=== PATIENT | female | born 1995 | race Caucasian/White ===

== ENCOUNTER → 2019-12-10 15:47 | Outpatient (CLI) | payer OTHER, SELFPAY ==
[2017-03-16 05:47] VITALS: BMI 27.3
[2019-12-10 17:17] LABS: Absolute Lymphocyte Count 2.25 X10^3/uL (0.83-4.51); Absolute Neutrophil Count 5.4 X10^3/uL (2.0-7.7); Basophil# 0.05 X10^3/uL; Basophil% 0.6 % (0-1); Eosinophil# 0.14 X10^3/uL; Eosinophils% 1.7 % (0-5); Hematocrit 39.3 % (37-47); Hemoglobin 13.3 g/dL (12.0-15.0); Lymphocyte # 2.25 X10^3/ul (4.0); Lymphocyte % 26.8 % (19-41); Mean Corp Hgb Conc 33.8 g/dL (32-36); Mean Corpuscular Hgb 31.7 pg (27.0-32.0); Mean Corpuscular Volume 93.8 fL (81-99); Mean Platelet Vol. 11.8 fl (6.2-12.0); Monocyte# 0.53 X10^3/uL; Monocyte% 6.3 % (0-10); NRBC Flagged by Analyzer 0 % (0-5); Neutrophil # 5.42 X10^3/uL (2.7-7.7); Neutrophil % 64.4 % (47-70); Platelet Count 189 K/mm3 (150-450); RBC Distribution Width CV 12.1 % (11.6-14.6); RBC Distribution Width SD 41.4 fl (35.1-43.9); Red Blood Count 4.19 M/mm3 (4.2-5.4); White Blood Count 8.4 K/mm3 (4.4-11.0)
[2019-12-10 17:38] LABS: Color, Urine Yellow (Yellow); Glucose, Dipstick Normal (Normal); Ketone-Dipstick Negative (Negative); Leukocyte Esterase-Dipstick 500 /ul (Negative); Nitrite-Dipstick Negative (Negative); Occult Blood-Urine Negative /ul (Negative); Protein-Dipstick Negative (Negative); Specific Gravity, Urine 1.025 (1.002-1.030); Thyroid Stim Hormone (TSH) 0.63 uIU/mL (0.358-3.74); Urine Bilirubin Dipstick Negative (Negative); Urine Clarity Clear (Clear); Urine Urobilinogen Normal (Normal)
[2019-12-10 18:13] LABS: Amphetamine Urine VISTA NEGATIVE (<1000 ng/mL); Barbiturate Urine VISTA NEGATIVE (< 200 ng/mL); Benzodiazepine Urine VISTA NEGATIVE (< 200 ng/mL); Cocaine Urine VISTA NEGATIVE (< 300 ng/mL); Ecstacy Urine VISTA NEGATIVE (< 500 ng/mL); Methadone Urine VISTA NEGATIVE (< 300 ng/mL); PCP Urine VISTA NEGATIVE (< 25 ng/mL); THC Urine VISTA NEGATIVE (< 50 ng/mL); Vista UDS pH Range 5
[2019-12-10 20:29] LABS: Chlamydia Trachomatis by PCR Negative (Negative); Neisserai gonorrhoeae by PCR Negative (Negative); Probe Check PASS; Sample Adequacy Control PASS; Specimen Processing Control PASS
[2019-12-11 10:23] LABS: HIV - WCH Non-Reactive (Nonreactive); Hepatitis B Surface Antigen Non-Reactive (Nonreactive); Hepatitis C Antibody Non-Reactive (Nonreactive); Rubella IgG 42.6 IU/mL
[2019-12-17 03:25] LABS: Prenatal RPR NONREACTIVE (NONREACTIVE)
== END ==
PROVIDERS: PCP Family Medicine; Visit Provider Obstetrics & Gynecology
DX: Z34.82 Encounter for supervision of other normal pregnancy, second trimester (principal); Z11.3 Encounter for screening for infections with a predominantly sexual mode of transmission
CPT/HCPCS: 36415; 80307; 81002; 84443; 85025; 86703; 86762; 86803; 87340; 87491; 87591

== ENCOUNTER → 2020-05-23 | Outpatient (CLI) | payer OTHER, SELFPAY ==
[2020-05-23 10:27] VITALS: BMI 29.0
== END | disposition home or self-care (01) ==
LOC: LABSPEC 12:55
PROVIDERS: PCP Family Medicine; Referring Provider Obstetrics & Gynecology; Visit Provider Obstetrics & Gynecology
DX: Z34.90 Encounter for supervision of normal pregnancy, unspecified, unspecified trimester (principal)
CPT/HCPCS: 87081

== ENCOUNTER 2020-06-17 02:25 | Inpatient (IN) | payer SELFPAY ==
[2017-03-16 05:47] VITALS: BMI 27.3
[2020-06-13 11:36] VITALS: BMI 29.4
[2020-06-16 23:43] VITALS: BMI 29.2
[2020-06-16 23:56] VITALS: BP 127/73; PULSE 92; TEMP 36.6; O2SAT 97
[2020-06-17] VITALS (53 sets, daily range): BP systolic 87–134; BP diastolic 52–84; PULSE 75–105; RESP 16–18; TEMP 36.5–36.9; O2SAT 97–99
[2020-06-17] MEDS: Lactated Ringers 1,000 ML 50 ML IV (03:00)
[2020-06-17 03:17] LABS: Absolute Lymphocyte Count 2.35 X10^3/uL (0.83-4.51); Absolute Neutrophil Count 8.9 X10^3/uL (2.0-7.7); Basophil# 0.04 X10^3/uL; Basophil% 0.3 % (0-1); Eosinophil# 0.26 X10^3/uL; Eosinophils% 2.1 % (0-5); Hematocrit 36.3 % (37-47); Hemoglobin 12.5 g/dL (12.0-15.0); Lymphocyte # 2.35 X10^3/ul (4.0); Mean Corp Hgb Conc 34.4 g/dL (32-36); Mean Corpuscular Hgb 32.1 pg (27.0-32.0); Mean Corpuscular Volume 93.1 fL (81-99); Mean Platelet Vol. 11.4 fl (6.2-12.0); Monocyte# 0.74 X10^3/uL; NRBC Flagged by Analyzer 0 % (0-5); Neutrophil # 8.89 X10^3/uL (2.7-7.7); Neutrophil % 72.1 % (47-70); Platelet Count 189 K/mm3 (150-450); RBC Distribution Width CV 12.4 % (11.6-14.6); RBC Distribution Width SD 42.5 fl (35.1-43.9); White Blood Count 12.3 K/mm3 (4.4-11.0)
--- NOTE | 2020-06-17 03:45 | HP.PCM_ITS ---
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 Anatomy scan normal. Declined genetic testing. (4) Status: Acute Qualifiers: Comment: RAQUEL at 31w. Declined genetic testing with prior OB. Anatomy normal. (5) Rh negative status during Status: Acute Qualifiers: Comment: Rhogam given 03/29. Repeat after delivery. 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 Wil[facility] Spouse Yousif 28 wk GCT and CBC WNL, scanned in History and Physical Date of Admission: 06/17/20 Intake Vital Signs 06/13/20 Height 5 ft 3 in 06/13/20 Weight: 166 lb 06/13/20 BMI 29.4 06/13/20 BP 120/88 H 05/10/20 BMI 28.8 Intake Visit Reasons: 40 WK OB Chief Complaint: est ob Rack Carrier Required: No Is patient in pain?: No Allergies No Known Allergies Allergy (Verified 06/13/20 11:36) Medications docosahexaenoic acid 200 mg capsule mg PO 04/13/20 [History Confirmed 06/13/20] Last Menstral Period: 09/07/19 Zika: Zika virus screening: Negative : No PFSH PFS Social History (Updated 06/13/20 @ 11:[address] Debbi Patel MD) Smoking Status: Never smoker alcohol intake: never substance use type: does not use caffeine: No what type of physical activity do you participate in: none do you feel safe at home: Yes additional social history: - Yousif Pregancy History 2 Elective abortions Hx Para 1 Spontaneous abortions Hx # Term Pregnancies Ectopic pregnancies Hx # Pregnancies Multiple births # of living children Past Pregnancies Del. Date Name GA/Weeks Outcome Route Bth Weight Infant Gen Labor Lgth Anesthesia Del Locatn Provider FOB 03/16/17 Willy 40 live - full term 7lbs 4oz Male epidural [facility] Dr. Yoana Dodd Delivery Date: 03/16/17 No issues during or delivery Kristen Zhong HPI 40 WK OB: Details: JASWINDER WARE is a 25 year old at 40 weeks 4 days presents in active labor with regular contractions denies any vaginal bleeding or loss of fluid admits good movement OB Visit LAURA Calculator Estimated Delivery Date Method Current WG Current Estimate 06/13/20 Manual 40w 0d Expected Delivery Route/Plan deliver at 41 Labor Preferences- CB/BF classes: declines labor support person: Yousif labor intervention preferences: open to standard pain management options preferred: epidural cut cord/dad catch: cord : yes PP control planned: [] discussed possible routes of delivery and associated risks: discussed possible delivery modalities and possible indications for each including R/B/A of , VAVD, FAVD, and CS. questions answered. special requests: denies Specific Issue/Plans flu vaccine: declines tdap vaccine: declines rhogam: 03/29 LARC form signed: 04/13/2020Fetal movement and labor precautions reviewed. movement and labor precautions reviewed. Problem list reviewed and updated with the most current plan of care details and appropriate orders placed. Relevant counseling for the gestational age provided. 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 no LOF, VB, DFM, ctx. Oriented to practice. Discussed labor preferences. LARC form signed. 04/26/20 33w 1d 159 lb 8 oz 118/72 Negative Negative 168 31 Transverse MH-No Vb, LOF. Confirm transverse lie with US. No CTX. Good FM 05/10/20 35w 1d 163 lb 136/80 Negative Negative 157 35 Cephalic GP - no ctx, LOF, VB, DFM. Cephalic on ultrasound. Discussed routes of delivery - believes had vacuum last . 05/23/20 37w 0d 164 lb 144/88 128/80 Negative Negative 150 37 Cephalic 1 SM- no vb lof good fm no regular ctx 06/01/20 38w 2d 165 lb 6 oz 130/88 Negative Negative 155 38 Cephalic 1 50 -2 GP - no LOF, VB, DFM, ctx . Discussed COVID testing. 06/07/20 39w 1d 165 lb 2 oz 130/80 Negative Negative 155 39 Cephalic 2 50 -2 GP - no LOF, VB, DFM, ctx . Membranes swept today. Discussed IOL at 41 weeks if no labor before then. 06/13/20 40w 0d 166 lb 120/88 150 38 Cephalic 2 40 -2 SM- no vb lof good fm no reuglar ctx IOL 41 weeks bedside MARIBELL WNL ACOG Second Trimester Second Trimester: Signs and Symptoms of Labor, Selecting a care provider, Reproductive Life Planning, Care Planning, Depression/Anxiety and Intimate Partner Violence; discussed Tobacco Cessation Diagnostics Diagnostics Diagnostics Blood Type O NEGATIVE 12/10/19 Antibody Screen POSITIVE H 03/16/17 HIV 1&2 Antibody Non-Reactive (Nonreactive) 12/10/19 Group B Strep DNA Negative (Negative) 02/12/17 Rubella IgG Antibody 42.6 IU/mL 12/10/19 Hgb 13.3 g/dL (12.0-15.0) 12/10/19 Hct 39.3 % (37-47) 12/10/19 RPR NONREACTIVE (NONREACTIVE) 12/10/19 Details: HIV: Urine Culture: Sequential Screen: NIPT Screen: ROS Const Reports system reviewed and no additional complaints, except as docu Card Reports system reviewed and no additional complaints, except as docu Resp Reports system reviewed and no additional complaints, except as docu GI Reports system reviewed and no additional complaints, except as docu, Reports nausea Reports system reviewed and no additional complaints, except as docu Musc Reports system reviewed and no additional complaints, except as docu Exam Const General: cooperative, healthy appearing, comfortable, anxious [facility] Head: normal to inspection Nose: external nose normal Face and sinus: normal facial exam Neck Neck: normal visual inspection, full ROM, no lymphadenopathy Thyroid: thyroid normal Chest Chest palpation & inspection: normal inspection of the chest Resp Effort & Inspection: normal respiratory effort GI Inspection: normal to inspection Palpation: soft, other (gravid uterus) Other: vertex and appropriate size for gestational age Other: Cervical Exam: 3-4 Extrem General: pedal edema Assessment & Plan Problems 1. Z34.90 RAQUEL at 31w. Declined genetic testing with prior OB. Anatomy normal. 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 Anatomy scan normal. Declined genetic testing. 3. 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 Spouse Yousif 28 wk GCT and CBC WNL, scanned in 4. 39 weeks gestation of Z3A.39 electronic covid test ordered 06/07/20 5. Rh negative status during O26.899; Z67.91 Rhogam given 03/29. Repeat after delivery. 25-year-old at 40 weeks 4 days presents in active labor Patient presents IAL, plan expectant management for , [pitocin/AROM if need ed]. Pain management: [plans epidural]. GBS negative. Management of any complications: Rh- RhoGam as needed postdelivery I have reviewed the [facility] and made any clinically relevant updates. 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
[2020-06-17] MEDS: Lactated Ringers 500 ML 999 ML IV ×2 (05:10→06:56)
[2020-06-17] MEDS: fentaNYL-bupivacaine (epidural) 100 ML BAG EPIDURAL ×2 (06:13→10:22)
[2020-06-17] MEDS: Oxytocin 30 units/NS 500 ml 30 UNITS/500 ML IV.SOLN IV (06:25)
[2020-06-17] MEDS: Lactated Ringers 1,000 ML 200 ML IV (10:21)
[2020-06-17] MEDS: Oxytocin 30 units/NS 500 ml 30 UNITS/500 ML IV.SOLN 334 UNITS IV (12:23)
--- NOTE | 2020-06-17 22:13 | PCM.OPRPT ---
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 Anatomy scan normal. Declined genetic testing. (4) Status: Acute Qualifiers: Comment: RAQUEL at 31w. Declined genetic testing with prior OB. Anatomy normal. (5) Rh negative status during Status: Acute Qualifiers: Comment: Rhogam given 03/29. Repeat after delivery. 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ly Spouse Yousif 28 wk GCT and CBC WNL, scanned in Vaginal Delivery Maternal Presentation: Active Labor ial 40w4d Amniotic Membrane Rupture Type: Artificial Amniotic Fluid Description: Clear Final LAURA: 06/13/20 Gestational age: 40 Weeks and 4 Days Date of Procedure: 06/17/20 Pre-Operative Diagnosis: ial Post-Operative Diagnosis: same Surgery/ Procedure Performed: Spontaneous Vaginal Delivery Type of Anesthesia: Epidural Description of Procedure: Patient began pushing and delivered the head in the RAFAELA presentation. The head was delivered atraumatically. The anterior and posterior shoulders delivered without complication followed by the rest of the infant and the was placed on the maternal abdomen. Delayed cord clamping was employed for approximately 60 seconds. Cord was clamped and cut and gentle traction was applied to the cord and the placenta delivered spontaneously immediately following it was noted to be intact with three-vessel cord. The perineum and vagina were inspected and noted to have a small first-degree perineal laceration that was repaired in the usual fashion with 3-0 Vicryl Rapide. EBL was 400 cc. Patient and tolerated delivery well. Presentation: RAFAELA Placental Delivery Description: Spontaneous Placenta Disposition: [facility] Cord Vessel Description: 3 Vessels Estimated Blood Loss: 400 Episiotomy Description: None Laceration: None Medications given after delivery: IV Pitocin Complications: None Multi Select Codes - Urinary/Genital Urinary/Genital CPT Codes: 58888 Vaginal Delivery [facility]
--- NOTE | 2020-06-17 22:15 | DCINST_ITS ---
Discharge Diet: No Restrictions Discharge Activity: Return to Normal Activity, May not drive while taking narcotic pain medications., May Shower May resume sexual activity in: 4-6 weeks Call your doctor if your incision/area has: Continuous Slow Oozing, Sudden Increased Bleeding, Increased Pain/ Swelling, Increased Redness, Foul Smelling Discharge Additional Instructions: If you experience any of the following, contact your healthcare provider. * Bleeding that soaks a pad every hour for 2 hours * Fever 100.4 or higher * Unrelieved incision or abdominal pain * Swelling, redness, discharge or bleeding from your incision or episiotomy site * Your incision begins to separate * Problems urinating (including inability to urinate or burning while urinating). * Visual changes * Severe headache * Flu-like symptoms * Pain or redness in one of both of your breasts * Pain, warmth, tenderness or swelling in your legs, especially the calf area * Frequent nausea and vomiting * Symptoms of depression or anxiety If you experience any of the following, call 911 or go to the nearest Emergency Room. * Chest pain * Problems breathing * Seizure activity * Partial or complete paralysis of a body part, slurred speech, weakness or drooping of the face, or a sudden inability to walk or hold your balance Allergies/Adverse Reactions: Allergies No Known Allergies Allergy (Verified 06/16/20 23:49) Medications to take at Discharge Cholecalciferol (Vitamin D3) [Vitamin D3] 5,000 mg PO DAILY 06/16/20 Pnv No.95/Ferrous Fum/Folic AC [ Caplet] 1 tab PO DAILY 06/16/20 Naproxen [Naprosyn] 250 - 500 mg PO Q8H PRN PRN #30 tab 06/17/20 The following prescriptions were given: Naproxen [Naprosyn] 250 - 500 mg PO Q8H PRN PRN #30 tab PRN Reason: MILD PAIN Transmission Status: Pending to [facility] Please Follow Up With: Debbi Patel MD - [phone] When: Call to make an appointment with your doctor in 6 weeks. If you had elevated Blood pressure or 4th degree laceration you will need to be seen in 2 weeks. Primary Care Physician: Faby Griggs DO [Primary Care Provider] - Test Results: Test results from this visit will be discussed in further detail at your follow- up appointment, if applicable.
--- NOTE | 2020-06-17 22:15 | PCM.DCVAG ---
Discharge Diet: No Restrictions Discharge Activity: Return to Normal Activity, May not drive while taking narcotic pain medications., May Shower May resume sexual activity in: 4-6 weeks Call your doctor if your incision/area has: Continuous Slow Oozing, Sudden Increased Bleeding, Increased Pain/ Swelling, Increased Redness, Foul Smelling Discharge Additional Instructions: If you experience any of the following, contact your healthcare provider. Bleeding that soaks a pad every hour for 2 hours Fever 100.4 or higher Unrelieved incision or abdominal pain Swelling, redness, discharge or bleeding from your incision or episiotomy site Your incision begins to separate Problems urinating (including inability to urinate or burning while urinating). Visual changes Severe headache Flu-like symptoms Pain or redness in one of both of your breasts Pain, warmth, tenderness or swelling in your legs, especially the calf area Frequent nausea and vomiting Symptoms of depression or anxiety If you experience any of the following, call 911 or go to the nearest Emergency Room. Chest pain Problems breathing Seizure activity Partial or complete paralysis of a body part, slurred speech, weakness or drooping of the face, or a sudden inability to walk or hold your balance Allergies/Adverse Reactions: Allergies No Known Allergies Allergy (Verified 06/16/20 23:49) Medications to take at Discharge Cholecalciferol (Vitamin D3) [Vitamin D3] 5,000 mg PO DAILY 06/16/20 Pnv No.95/Ferrous Fum/Folic AC [ Caplet] 1 tab PO DAILY 06/16/20 Naproxen [Naprosyn] 250 - 500 mg PO Q8H PRN PRN #30 tab 06/17/20 The following prescriptions were given: Naproxen [Naprosyn] 250 - 500 mg PO Q8H PRN PRN #30 tab PRN Reason: MILD PAIN Transmission Status: Pending to [facility] Please Follow Up With: Debbi Patel MD - [phone] When: Call to make an appointment with your doctor in 6 weeks. If you had elevated Blood pressure or 4th degree laceration you will need to be seen in 2 weeks. Primary Care Physician: Faby Griggs DO [Primary Care Provider] - Test Results: Test results from this visit will be discussed in further detail at your follow-up appointment, if applicable.
[2020-06-17] MEDS: Naproxen 250 MG Tablet 500 MG PO (23:26)
[2020-06-18 03:51] VITALS: TEMP 36.5
[2020-06-18 03:52] VITALS: BP 118/68; PULSE 90; RESP 18; TEMP 36.5
[2020-06-18 08:21] VITALS: BP 119/82; PULSE 91
[2020-06-18 08:22] VITALS: TEMP 36.5
[2020-06-18 08:25] VITALS: BP 119/82; PULSE 91; RESP 14; TEMP 36.6
--- NOTE | 2020-06-18 08:50 | PCM.PN.OB ---
Patient Problems: Active and Suspected Problems (Last Reviewed 06/13/20 @ 11:36 by Danica Hutchins) Active labor at term (Acute) 39 weeks gestation of (Acute) electronic covid test ordered 06/07/20 Rh negative status during (Acute) Rhogam given 03/29. Repeat after delivery. 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 Anatomy scan normal. Declined genetic testing. (Acute) RAQUEL at 31w. Declined genetic testing with prior OB. Anatomy normal. Subjective: Patient doing well without complaints. Tolerating PO. Ambulating and voiding without difficulty. feeding well. Denies chest pain, shortness of breath, calf pain/swelling, fevers, chills, lightheadedness. - Physical Exam Vitals/I&O's: Vital Signs Temp Pulse Resp BP Pulse Ox 98 F 91 14 119/82 H 97 06/18/20 08:25 06/18/20 08:25 06/18/20 08:25 06/18/20 08:25 06/17/20 23:20 Oxygen Delivery Method Room Air Weight: 165 lb 3.2 oz Body Mass Index (BMI) 29.2 Intake and Output for Last 24 Hours 06/16/20 06/17/20 06/18/20 23:59 23:59 23:59 Intake Total 3099.50 / 3099.50 Output Total 1450 / 1450 Balance 1649.50 / 1649.50 General: Alert, Oriented x3 Microbiology Past 72 Hours 06/17/20 03:00 Mucosa - Nose SARS-CoV-2 Antigen (Rapid) - Final Current Medications Acetaminophen (Acetaminophen 500 Mg Tablet) 1,000 mg PO Q8H PRN PRN PRN Reason: Pain Score 1-3 Bisacodyl (Bisacodyl 10 Mg Suppository) 10 mg RECTAL UD PRN PRN Reason: If no BM Dibucaine (Dibucaine 30 Gm Tube) 1 applic TOPICAL TID PRN PRN; Protocol PRN Reason: Discomfort Hydrocortisone (Hydrocortisone 2.5% Crm) 1 applic TOPICAL TID PRN PRN; Protocol PRN Reason: Discomfort Methylergonovine Maleate (Methylergonovine 0.2 Mg/Ml Ampul) 0.2 mg IM X1 PRN PRN Reason: Excess bleeding/uterine atony Naproxen (Naproxen 250 Mg Tablet) 500 mg PO Q8H PRN PRN PRN Reason: Pain Score 1-3 Last Admin: 06/17/20 23:26 Dose: 500 mg Documented by: Ondansetron HCl (Ondansetron 4 Mg/2 Ml Vial) 4 mg IV Q4H PRN PRN PRN Reason: Nausea Oxycodone HCl (Oxycodone 5 Mg Tablet) 5 - 10 mg PO Q4H PRN PRN PRN Reason: Pain Score 4-10 Senna/Docusate Sodium (Senna/Docusate Sodium 1 Tablet) 1 - 2 tablet PO DAILY PRN PRN PRN Reason: Constipation Simethicone (Simethicone 80 Mg Tablet) 80 mg PO PCHS PRN PRN Reason: Indigestion/Stomach pain Sodium Chloride (0.9% Saline Lock 10 Ml Syringe) 5 - 15 ml IV UD PRN PRN Reason: SALINE FLUSH Medical Necessity - Tobacco Use Smoking Status: Never smoker Assessment/Plan All Active Problems (Last Reviewed 06/13/20 @ 11:36 by Danica Hutchins) Active labor at term (Acute) 39 weeks gestation of (Acute) Rh negative status during (Acute) Supervision of normal , antepartum (Acute) Dandy Walker malformation (Acute) (Acute) s/p PPD # 1 1. routine post delivery care 2. breast feeding- support given 3. rh negative- rhogam PRN 4. rubella immune
[2020-06-18 12:00] VITALS: BP 122/70; PULSE 215; PULSE 83; PULSE 84; RESP 16; TEMP 36.7; O2SAT 81; O2SAT 99
== END 2020-06-18 15:50 | disposition home or self-care (01) | DRG 807 ==
LOC: WPOUT 02:32 → WP 02:32
PROVIDERS: Admitting Provider Obstetrics & Gynecology; PCP Family Medicine; Visit Provider Obstetrics & Gynecology
DX: O70.0 First degree perineal laceration during delivery (principal); Z37.0 Single live birth; Z3A.40 40 weeks gestation of pregnancy; Z67.91 Unspecified blood type, Rh negative; Z28.21 Immunization not carried out because of patient refusal
CPT/HCPCS: 59025; 59050; 85025; 86850; 86900; 86901; 87426; 99218; J7120; G0378

== ENCOUNTER → 2020-08-01 | Outpatient (CLI) | payer OTHER, SELFPAY ==
[2020-08-04 13:06] LABS: HPV Reflexed? NOT INDICATED
== END | disposition home or self-care (01) ==
LOC: LABSPEC 16:33
PROVIDERS: PCP Family Medicine; Referring Provider Obstetrics & Gynecology; Visit Provider Obstetrics & Gynecology
DX: Z12.4 Encounter for screening for malignant neoplasm of cervix (principal)
CPT/HCPCS: 88175; G0145

== ENCOUNTER → 2024-07-30 | Outpatient (CLI) | payer OTHER, SELFPAY ==
[2024-07-30 10:52] LABS: Absolute Lymphocyte Count 1.91 X10^3/uL (0.83-4.51); Absolute Neutrophil Count 6.4 X10^3/uL (2.0-7.7); Basophil# 0.04 X10^3/uL; Basophil% 0.4 % (0-1); Eosinophil# 0.09 X10^3/uL; Hematocrit 38.9 % (37-47); Hemoglobin 13.4 g/dL (12.0-15.0); Lymphocyte # 1.91 X10^3/ul (0.83-4.51); Lymphocyte % 21.3 % (19-41); Mean Corp Hgb Conc 34.4 g/dL (32-36); Mean Corpuscular Hgb 31.8 pg (27.0-32.0); Mean Corpuscular Volume 92.2 fL (81-99); Mean Platelet Vol. 11.7 fl (6.2-12.0); Monocyte# 0.45 X10^3/uL; NRBC Flagged by Analyzer 0 % (0-5); Neutrophil # 6.44 X10^3/uL (2.7-7.7); Neutrophil % 72.1 % (47-70); Platelet Count 199 K/mm3 (150-450); RBC Distribution Width SD 40.5 fl (35.1-43.9); Red Blood Count 4.22 M/mm3 (4.2-5.4)
[2024-07-30 11:43] LABS: HIV Nonreactive (Nonreactive); Hepatitis B Surface Antigen Nonreactive (Nonreactive); Hepatitis C Antibody Nonreactive (Nonreactive); Syphilis Antibodies Nonreactive (Nonreactive)
[2024-08-01 06:08] LABS: Chlamydia By Nucleic Acid AMP Negative (Negative); Gonococcus By Nucleic Acid AMP Negative (Negative)
[2024-08-04 12:45] LABS: HPV Reflexed? NOT INDICATED
== END | disposition home or self-care (01) ==
LOC: BWCLAB 09:27
PROVIDERS: PCP Family Medicine; Referring Provider Advanced Practice Midwife; Visit Provider Advanced Practice Midwife
DX: O09.90 Supervision of high risk pregnancy, unspecified, unspecified trimester (principal); Z3A.00 Weeks of gestation of pregnancy not specified; Z12.4 Encounter for screening for malignant neoplasm of cervix
CPT/HCPCS: 36415; 85025; 86703; 86780; 86803; 86850; 86900; 86901; 87086; 87088; 87340; 87491; 87591; 88175; G0145

== ENCOUNTER → 2024-10-12 | Outpatient (CLI) | payer OTHER, SELFPAY ==
--- NOTE | 2024-10-12 15:12 | US_ITS ---
PROCEDURE: OB ANATOMY W/ TRANSVAGINAL 10/12/2024 REASON FOR EXAM: ANATOMY/CERVICAL LENGTH TECHNIQUE: High resolution obstetric ultrasound performed using a 2D transducer. Standard views obtained, including biometry, anatomy survey, and Doppler studies. COMPARISON: None FINDINGS LMP: May 24, 2025 Number: 1 Position: Transverse left Placental Position: Anterior and not low-lying Placental Abnormalities: None DIMENSIONS: Biparietal Diameter: 4.6 cm: 19 weeks and 6 days: 36 percentile/ Head Circumference: 17.5 cm: 20 weeks and 0 days: 34 percentile/ Abdominal Circumference: 14.9 cm: 20 weeks and 1 day: 44th percentile/ Femur Length: 3.1 cm: 19 weeks and 3 days: 20 percentile/ ESTIMATED WEIGHT: 318 g plus/-48 g ESTIMATED WEIGHT PERCENTILE (24+ weeks): 30 ESTIMATED GESTATIONAL AGE: Baseline: 20 weeks and 1 day By Ultrasound: 20 weeks and 0 days ESTIMATED DATE OF DELIVERY: Baseline: February 28, 2025 By Ultrasound: March 01, 2025 BIOPHYSICAL ASSESSMENT: Amniotic Fluid Volume: 5.3 Amniotic Fluid Index within normal limits Cardiac Motion: 150 beats per minute (average) Trunk and Limb Motion: Present. MATERNAL ANATOMY: Adnexa: Neither maternal ovary is successfully identified. Cervical Length (if measured): 4.8 cm ANATOMY: Spine: Unremarkable Cranium: Unremarkable Cerebellum: Unremarkable Cisterna Magna: Unremarkable Cavum Septum Pellucidi: Unremarkable Lateral Ventricles: Unremarkable Choroid Plexus: Unremarkable Midline Falx: Unremarkable Nuchal Fold: Unremarkable Upper Lip: Unremarkable Heart: Unremarkable Ventricular Outflow Tracts: Unremarkable Stomach: Unremarkable Kidneys: Bladder: Unremarkable Umbilical Cord: Unremarkable Extremities: Unremarkable US/OB Anatomy w/ Transvaginal IMPRESSION: Single live intrauterine gestation with a mean gestational age of 20 weeks. Reading Location: [facility]
== END | disposition home or self-care (01) ==
LOC: US 15:11
PROVIDERS: PCP Family Medicine; Referring Provider Obstetrics & Gynecology; Visit Provider Obstetrics & Gynecology
DX: O09.90 Supervision of high risk pregnancy, unspecified, unspecified trimester (principal); Z3A.00 Weeks of gestation of pregnancy not specified
CPT/HCPCS: 76805; 76817

== ENCOUNTER → 2024-12-08 | Outpatient (CLI) | payer OTHER, SELFPAY ==
[2024-12-08 16:40] LABS: Hematocrit 32.4 % (37-47); Hemoglobin 10.8 g/dL (12.0-15.0); Immature Granulocytes Count 0.050 X10^3/uL (0.0-0.0); Mean Corp Hgb Conc 33.3 g/dL (32-36); Mean Corpuscular Volume 95.3 fL (81-99); Mean Platelet Vol. 10.9 fl (6.2-12.0); NRBC Flagged by Analyzer 0 % (0-5); Platelet Count 185 K/mm3 (150-450); RBC Distribution Width CV 12.7 % (11.6-14.6); RBC Distribution Width SD 43.3 fl (35.1-43.9); Red Blood Count 3.40 M/mm3 (4.2-5.4); White Blood Count 8.0 K/mm3 (4.4-11.0)
[2024-12-08 17:48] LABS: Glucose Challenge Gest 1H 50g 108 mg/dL (70-140); HIV Nonreactive (Nonreactive); Syphilis Antibodies Nonreactive (Nonreactive)
== END | disposition home or self-care (01) ==
PROVIDERS: Advanced Practice Midwife; PCP Family Medicine; Referring Provider Obstetrics & Gynecology; Visit Provider Obstetrics & Gynecology
DX: O09.90 Supervision of high risk pregnancy, unspecified, unspecified trimester (principal); Z3A.00 Weeks of gestation of pregnancy not specified; Z13.1 Encounter for screening for diabetes mellitus
CPT/HCPCS: 36415; 82950; 85025; 86703; 86762; 86780; 86850; 86900; 86901

== ENCOUNTER → 2025-02-04 | Outpatient (CLI) | payer OTHER, SELFPAY ==
--- OUTSIDE RECORDS SUMMARY | 2025-02-04 21:26 | XMS RPT_ITS | CCD ---
Author Organization [facility] Care Team Providers Care Unattended Ground Sensor Specialist Name Role Phone AUBREY WARNER Admitting Unavailable AUBREY WARNER Attending Unavailable AUBREY WARNER Primary Care Unavailable Indu GANN, Dr. Hobbs Primary Care Provider [phone] Indu GANN, Dr. Hobbs Referring Provider Ness Dowd CNM Attending Provider Ness Dowd CNM Referring Provider Dr. Mari Rockwell DO Attending Provider Dr. Mari Rockwell DO Referring Provider Indu GANN, Dr. Hobbs Primary Care Provider Dr. Faby Griggs DO Referring Provider [phone] Ness Dowd CNM Attending Provider [phone] Randi Gaines Attending Provider [phone] Dr. Faby Griggs DO Primary Care Provider Indu GANN, Dr. Hobbs Referring Provider Dr. Mari Rockwell DO Attending Provider Ajitys, Faby Primary Care Unavailable Ness Dowd Attending Unavailable Malys, Faby Referring Unavailable Malys, Faby Primary Care Unavailable Malys, Faby Referring Unavailable Mari Rockwell Attending Unavailabl e Malys, Faby Primary Care Unavailable Malys, Faby Referring Unavailable Mari Rockwell Attending Unavailabl e Malys, Faby Referring Unavailable Ness Dowd Attending Unavailable Malys, Faby Primary Care Unavailable Malys, Faby Primary Care Unavailable Mari Rockwell Attending Unavailabl e Malys, Faby Referring Unavailable Malys, Faby Primary Care Unavailable Ayde Saavedra, Mari Attending Unavailabl e Ayde Saavedra, Mari Referring Unavailrob e Ness Dowd Attending Unavailable Ness Dowd Referring Unavailable Malys, Faby Primary Care Unavailable Malys, Faby Primary Care Unavailable Vande Quentin, Mari Attending Unavailabl e Chikae Quentin, Mari Referring Unavailabl e Ness Dowd Attending Unavailable Malys, Faby Primary Care Unavailable Malys, Faby Referring Unavailable Malys, Faby Primary Care Unavailable Vande Quentin, Mari Attending Unavailabl e Malys, Faby Referring Unavailable Ness Dowd Attending Unavailable Malys, Faby Primary Care Unavailable Malys, Faby Referring Unavailable Malys, Faby Primary Care Unavailable Adalberto AVIATION MAINTENANCE INSTRUCTOR, Randi Attending Unavailable Malys, Faby Referring Unavailable Malys , Dr. Hobbs Primary Care Provider Dr. Faby Griggs DO Referring Provider [phone] Ness Dowd CNM Attending Provider [phone] Medications Current Medications Medication Drug Class(es) Dates Sig (Normalized) Sig (Original) Cholecalciferol (Vitamin D3) (Vitamin D3) 5,000 UNIT capsule (10 sources) Start: 06-16-2020 take 1 capsule by mouth once daily Cholecalciferol (Vitamin D3) (Vitamin D3) 5,000 UNIT capsule Active 5000 mg PO DAILY June 16, 2020 1:00am vitamin Start: 06-16-2020 take 1 capsule by mo [facility] once daily Cholecalciferol (Vitamin D3) (Vitamin D3) 5,000 UNIT capsule Active 5000 mg PO DAILY June 16, 2020 1:00am Mv-Mins 93-Mzaj-Uysxh No.1-Dha (Pnv-Monette) 28-1-300 mg capsule (10 sources) Start: 07-17-2024 Mv-Mins 66-Nawu-Wywon No.1-Dha (Pnv-Monette) 28-1-300 mg capsule Active NMA PO July 17, 2024 1:00am ondansetron 4 mg disintegrating oral tablet (10 sources) Serotonin-3 Receptor Antagonist Start: 07-30-2024 take 1 tablet by mouth every six hours as needed for nausea and vomiting Ondansetron 4 mg tablet,disintegrati ng Active 4 mg PO EVERY 6 HOURS as needed for nausea and vomiting 90 4 July 30, 2024 1:00am Nausea and vomiting during Vomiting of , unspecified Completed/Discontinued Medications Medication Drug Class(es) Dates Sig (Normalized) Sig (Original) folic acid 1 mg oral tablet (10 sources) Start: 03-16-2017 End: 04-13-2020 take 1 tablet by mouth once daily Folic Acid 1 MG tablet Discontinued 1 mg PO DAILY@0800 March 16, 2017 12:00am April 13, 2020 11:08am ibuprofen 800 mg oral tablet (10 sources) Nonsteroidal Anti-inflammatory Drug Start: 03-16-2017 End: 04-13-2020 take 1 tablet by mouth three times daily as needed for pain Ibuprofen 800 MG tablet Discontinued 800 mg PO 3 TIMES DAILY NEEDED as needed for pain or cramping 30 March 16, 2017 12:00am April 13, 2020 11:08am naproxen 250 mg oral tablet (10 sources) Nonsteroidal Anti-inflammatory Drug Start: 06-17-2020 End: 08-01-2020 take 250-500 mg by mouth every eight hours as needed for pain Naproxen 250 MG tablet Discontinued 250 - 500 mg PO EVERY 8 HOURS NEEDED as needed for MILD PAIN 30 June 17, 2020 1:00am August 01, 2020 12:25pm Pedi Multivit No.31-Fkrg-Luuhf 1 EACH tablet,chewable (10 sources) Start: 03-16-2017 End: 04-13-2020 take 1 tablet by mouth once daily Pedi Multivit No.20-Lklk-Cxppv 1 EACH tablet,chewable Discontinued 2 {tbl} PO DAILY March 16, 2017 12:00am April 13, 2020 11:08am Pnv Cmb#95-Ferrous Fumarate-Fa 1 EACH tablet (9 sources) Start: 06-16-2020 End: 07-17-2024 Pnv Cmb#95-Ferrous Fumarate-Fa 1 EACH tablet Discontinued 1 {tbl} PO DAILY June 16, 2020 1:00am July 17, 2024 3:26pm Start: 06-16-2020 End: 07-17-2024 Pnv Cmb#95-Ferrous Fumarate- Fa 1 EACH tablet Discontinued 1 {tbl} PO DAILY June 16, 2020 1:00am July 17, 2024 3:26pm Pnv No.95-Ferrous Fumarate-Fa 1 EACH tablet (1 source) Start: 06-16-2020 End: 07-17-2024 take 1 tablet by mouth once daily Pnv No.95-Ferrous Fumarate-Fa 1 EACH tablet Discontinued 1 {tbl} PO DAILY June 16, 2020 1:00am July 17, 2024 3:26pm Problems Active Problems Problem Classification Problem Date Documented Da te Episodic/Chronic Nervous system 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 Anatomy scan normal. Declined genetic testing. Other complications of (20 sources) High risk ; Translations: [Supervision of high risk , unspecified, unspecified trimester] 07-31-2024 Episodic Comment on above: PRR (needs rubella d rawn), LAURA 02/28/25, Sally Dhillon, Yousif PRR , LAURA 5, Sally Dhillon, Yousif Other complications of (20 sources) RhD negative; Translations: [Other specified related conditions, unspecified trimester] 07-09-2024 Episodic Comment on above: Rhogam given 03/29. Repeat after delivery. O-, Rhogam @ 28 wks & PRN Bleeding O-, Rhogam @ 28 wks & PRN Bleeding, Given 12/08/24 Other complications of (1 source) Supervision of high risk , unspecified, third trimester; Translations: [Supervision of high risk , unspecified, third trimester] Onset: 01-20-2025 Episodic Other complications of (1 source) Other specified related conditions, unspecified trimester; Translations: [Other specified related conditions, unspecified trimester] Onset: 01-20-2025 Episodic Other complications of (1 source) Supervision of high risk , unspecified, unspecified trimester; Translations: [Supervision of high risk , unspecified, unspecified trimester] Onset: 12-14-2024 Episodic Other and delivery including normal (20 sources) Normal labor; Translations: [] 07-09-2024 Episodic Comment on above: declined genetic & c arrier testing RAQUEL at 31w. Declined genetic testing with prior OB. Anatomy normal. RAQUEL [employer] line - PRR LAURA 06/13/20 Boy! Sally PC Willy Spouse Jay28 wk GCT and CBC WNL, scanned in Residual codes; unclassified (10 sources) Gestation period, 39 weeks; Translations: [39 weeks gestation of ] 07-09-2024 Episodic Comment on above: electronic covid lisa t ordered 06/07/20 Residual codes; unclassified (1 source) Unspecified blood type, Rh negative; Translations: [Unspecified blood type, Rh negative] Onset: 01-20-2025 Episodic Residual codes; unclassified (1 source) 34 weeks gestation of ; Translations: [34 weeks gestation of ] Onset: 01-20-2025 Episodic Residual codes; unclassified (1 source) 32 weeks gestation of ; Translations: [32 weeks gestation of ] Onset: 01-05-2025 Episodic Past or Other Problems Problem Classification Problem Date Documented Da te Episodic/Chronic Other complications of (1 source) Vomiting of , unspecified; Translations: [Vomiting of , unspecified] Onset: 07-30-2024 Episodic Residual codes; unclassified (1 source) 9 weeks gestation of ; Translations: [9 weeks gestation of ] Onset: 07-30-2024 Episodic Results Test Name Value Interpretation Reference Range Facility Laboratory - Chemistry and C hemistry - challengeOrdered By: Mari Saavedra on 01-20-2025 Glucose Ql (U) Negative [facility] Laboratory - UrinalysisOrder ed By: Mari Saavedra on 01-20-2025 Protein Ql (U) Negative [facility] Apartment Community Assistant Manager Office Visit Reporton 01-20-2025 Apartment Community Assistant Manager Office Visit Report [facility]'s [address], [address] [place] [address] OFFICE VISIT Date of Service: 01/20/25 MR#: [id number] Acct: [id number] Name: JASWINDER WARE Rep #: [id number] : 1995 Provider: Dr. Mari Carrillo, Age/Sex: 29/F [place] [facility] [place]: Signed Intake Vital Signs 12/08/24 13:30 01/05/25 16:08 01/20/25 10:31 01/20/25 10:31 Height 5 ft 3 in 5 ft 3 in 5 ft 3 in 5 ft 3 in Weight: 161 lb 7 oz BMI 28.5 BP 128/81 H Intake Visit Reasons: 34wk ob Kier Drier Required: No Is patient in pain?: No Allergies No Known Allergies Allergy (Verified 01/20/25 10:31) Medications ???Medication ???Instructions ???Recorded ???Confirmed ???Type Cholecalciferol (Vitamin D3) 5,000 mg PO DAILY vitamin 06/16/20 01/20/25 History [Vitamin D3] multivit-min no.71-iron fum 28 cap PO 07/17/24 01/20/25 History mg-folate no.1 1 mg-dha 300 mg capsule (PNV-Monette) ondansetron 4 mg disintegrating 4 mg PO Q6H PRN nausea and 5 01/20/25 Rx tablet vomiting #90 tabs Last Menstrual Period: 05/24/24 Zika: Zika virus screening: Negative : No PFSH PFSH Family History Sister Mango [place] malformation Social History adopted: No household members: spouse and children number of children: 2 current occupational status: unemployed current occupation: [employer] pets and animals: Yes pets and animals: dog(s), horse(s) and other details: Hens history of recent travel: No sexually active: Yes Smoking Status: Never smoker alcohol intake: never substance use type: does not use well-balanced diet: daily or most days caffeine: No eating out: rarely or never during the past year weight has: remained stable what type of physical activity do you participate in: none cheryl/bahai: Uatsdin seatbelt use: sometimes do you feel safe at home: Yes 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 Date Name GA/Weeks Outcome Route Bth Weight Infant Gen Labor Lgth Anesthesia Del Locatn Provider FOB 03/16/17 Willy 40 live - full term 7lbs 4oz Male epidural [facility] D jacobo Dodd 06/17/20 Sally 40 live - full term 7#6oz Male epidural [facility] ANGIE Delivery Date: 03/16/17 Last Updated by: Kristen Zhong No issues during or delivery HPI 34wk ob Details: JASWINDER WARE is a 29 year old who presents for routine OB visit. OB Visit LAURA Calculator Estimated Delivery Date Method Current WG Current Estimate 02/28/25 LMP (Certain) 34w 3d Other Estimates 02/25/25 Ultrasound #1 34w 6d Expected Delivery Route/Plan Labor Preferences- CB/BF classes: no labor support person: Yousif labor intervention preferences: [] pain management options preferred: epidural cut cord/dad catch: cord : yes but not usually successful PP control planned: discussed discussed possible routes of delivery and associated risks: [] special requests: [] Specific Issue/Plans Covid status: [] Flu vaccine: [] Tdap vaccine: declines Rhogam: given 12/08/24 LARC form signed: yes Problem list reviewed and updated with the most current plan of care details and appropriate orders placed. Relevant counseling for the gestational age provided. Continue routine care and follow up unless otherwise noted in visit notes/problem list details Initial Weight: Not Recorded Date -???-???-???-???-?? ?-???-???-???-???-? ??-???-???- EGA Weight BP Urine Prot -???-???-???-???-?? ?-???-???-???-???-? ??-???-???- Glucose FHR FuHt Pres Dilation -???-???-???-???-?? ?-???-???-???-???-? ??-???-???- Effaced St Visit Note 07/30/24 -???-???-???-???-?? ?-???-???-???-???-? ??-???-???- 9w 4d 138 lb 4 oz 132/83 -???-???-???-???-?? ?-???-???-???-???-? ??-???-???- 172 -???-???-???-???-?? ?-???-???-???-???-? ??-???-???- KW- CRL cons with dates. Declines NIPT 08/26/24 -???-???-???-???-?? ?-???-???-???-???-? ??-???-???- 13w 3d 141 lb 2 oz 134/84 Negative -???-???-???-???-?? ?-???-???-???-???-? ??-???-???- Negative 160 -???-???-???-???-?? ?-???-???-???-???-? ??-???-???- JV- nausea i mproving. wants to start with hospital anatomy scan. fhx jeannette. discussed might need mfm ultrasound if any abnormalities. declines genetic or AFP as discussed at last visit. 09/23/24 -???-???-???-???-?? ?-???-???-???-???-? ??-???-???- 17w 3d 146 lb 8 oz 114/79 Negative -???-???-???-???-?? ?-???-???-???-???-? ??-???-???- (more content not included)... Normal [facility] Laboratory - Chemistry and C hemistry - challengeOrdered By: Mari Saavedra on 01-05-2025 Glucose Ql (U) Negative [facility] - UrinalysisOrder ed By: Mari Saavedra on 01-05-2025 Protein Ql (U) Negative [facility] Apartment Community Assistant Manager Office Visit Reporton 01-05-2025 Apartment Community Assistant Manager Office Visit Report [facility]'s [address], [address] [place] [address] OFFICE VISIT Date of Service: 01/05/25 MR#: [id number] Acct: [id number] Name: JASWINDER WARE Rep #: [id number] : 1995 Provider: Dr. Mari Carrillo DO Age/Sex: 29/F [place] [facility] [place]: Signed Intake Vital Signs 12/08/24 13:30 12/23/24 08:53 01/05/25 16:08 Height 5 ft 3 in 5 ft 3 in 5 ft 3 in Weight: 157 lb BMI 27.8 BP 136/84 H Intake Visit Reasons: 32wk ob Kier Drier Required: No Is patient in pain?: No Allergies No Known Allergies Allergy (Verified 01/05/25 16:08) Medications ???Medication ???Instructions ???Recorded ???Confirmed ???Type Cholecalciferol (Vitamin D3) 5,000 mg PO DAILY vitamin 06/16/20 01/05/25 History [Vitamin D3] multivit-min no.71-iron fum 28 cap PO 07/17/24 01/05/25 History mg-folate no.1 1 mg-dha 300 mg capsule (PNV-Monette) ondansetron 4 mg disintegrating 4 mg PO Q6H PRN nausea and 5 01/05/25 Rx tablet vomiting #90 tabs Last Menstrual Period: 05/24/24 Zika: Zika virus screening: Negative : No PFSH PFSH Family History Sister Mango [place] malformation Social History adopted: No household members: spouse and children number of children: 2 current occupational status: unemployed current occupation: [employer] pets and animals: Yes pets and animals: dog(s), horse(s) and other details: Hens history of recent travel: No sexually active: Yes Smoking Status: Never smoker alcohol intake: never substance use type: does not use well-balanced diet: daily or most days caffeine: No eating out: rarely or never during the past year weight has: remained stable what type of physical activity do you participate in: none cheryl/bahai: Uatsdin seatbelt use: sometimes do you feel safe at home: Yes 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 Date Name GA/Weeks Outcome Route Bth Weight Infant Gen Labor Lgth Anesthesia Del Locatn Provider FOB 03/16/17 Willy 40 live - full term 7lbs 4oz Male epidural [facility] D jacobo Lees Yousif 06/17/20 Sally 40 live - full term 7#6oz Male epidural [facility] ANGIE Delivery Date: 03/16/17 Last Updated by: Kristen Zhong No issues during or delivery HPI 32wk ob Details: JASWINDER WARE is a 29 year old who presents for routine OB visit. OB Visit LAURA Calculator Estimated Delivery Date Method Current WG Current Estimate 02/28/25 LMP (Certain) 32w 2d Other Estimates 02/25/25 Ultrasound #1 32w 5d Expected Delivery Route/Plan Labor Preferences- CB/BF classes: no labor support person: Yousif labor intervention preferences: [] pain management options preferred: epidural cut cord/dad catch: cord : yes but not usually successful PP control planned: discussed discussed possible routes of delivery and associated risks: [] special requests: [] Specific Issue/Plans Covid status: [] Flu vaccine: [] Tdap vaccine: declines Rhogam: given 12/08/24 LARC form signed: yes Problem list reviewed and updated with the most current plan of care details and appropriate orders placed. Relevant counseling for the gestational age provided. Continue routine care and follow up unless otherwise noted in visit notes/problem list details Initial Weight: Not Recorded Date -???-???-???-???-?? ?-???-???-???-???-? ??-???-???- EGA Weight BP Urine Prot -???-???-???-???-?? ?-???-???-???-???-? ??-???-???- Glucose FHR FuHt Pres Dilation -???-???-???-???-?? ?-???-???-???-???-? ??-???-???- Effaced St Visit Note 07/30/24 -???-???-???-???-?? ?-???-???-???-???-? ??-???-???- 9w 4d 138 lb 4 oz 132/83 -???-???-???-???-?? ?-???-???-???-???-? ??-???-???- 172 -???-???-???-???-?? ?-???-???-???-???-? ??-???-???- KW- CRL cons with dates. Declines NIPT 08/26/24 -???-???-???-???-?? ?-???-???-???-???-? ??-???-???- 13w 3d 141 lb 2 oz 134/84 Negative -???-???-???-???-?? ?-???-???-???-???-? ??-???-???- Negative 160 -???-???-???-???-?? ?-???-???-???-???-? ??-???-???- JV- nausea i mproving. wants to start with hospital anatomy scan. fhx jeannette. discussed might need mfm ultrasound if any abnormalities. declines genetic or AFP as discussed at last visit. 09/23/24 -???-???-???-???-?? ?-???-???-???-???-? ??-???-???- 17w 3d 146 lb 8 oz 114/79 Negative -???-???-???-???-?? ?-???-???-???-???-? ??-???-???- Negative 155 -???-???-???-???- (more content not included)... Normal [facility] Laboratory - Chemistry and C hemistry - challengeOrdered By: Ness Dowd on 12-23-2024 Glucose Ql (U) Negative [facility] Laboratory - UrinalysisOrder ed By: Ness Dowd on 12-23-2024 Protein Ql (U) Trace [facility] Apartment Community Assistant Manager Office Visit Reporton 12-23-2024 Apartment Community Assistant Manager Office Visit Report [facility]'[address], [address] [place] [address] OFFICE VISIT Date of Service: 12/23/24 MR#: [id number] Acct: [id number] Name: JASWINDER WARE Rep #: [id number] : 1995 Provider: MELO Aguilera ams Age/Sex: 29/F [place] [facility] [place] Status: Signed Intake Vital Signs 10/19/24 10:51 12/08/24 13:30 12/23/24 08:45 12/23/24 08:53 Height 5 ft 3 in 5 ft 3 in 5 ft 3 in 5 ft 3 in Weight: 157 lb 6 oz BMI 27.8 BP 112/68 Intake Visit Reasons: 30 wk ob Kier Drier Required: No Is patient in pain?: No Allergies No Known Allergies Allergy (Verified 12/23/24 08:45) Medications ???Medication ???Instructions ???Recorded ???Confirmed ???Type Cholecalciferol (Vitamin D3) 5,000 mg PO DAILY vitamin 06/16/20 12/23/24 History [Vitamin D3] multivit-min no.71-iron fum 28 cap PO 07/17/24 12/23/24 History mg-folate no.1 1 mg-dha 300 mg capsule (PNV-Monette) ondansetron 4 mg disintegrating 4 mg PO Q6H PRN nausea and 5 12/23/24 Rx tablet vomiting #90 tabs Last Menstrual Period: 05/24/24 : Yes PFSH PFSH Family History Sister Mango [place] malformation Social History adopted: No household members: spouse and children number of children: 2 current occupational status: unemployed current occupation: [employer] pets and animals: Yes pets and animals: dog(s), horse(s) and other details: Hens history of recent travel: No sexually active: Yes Smoking Status: Never smoker alcohol intake: never substance use type: does not use well-balanced diet: daily or most days caffeine: No eating out: rarely or never during the past year weight has: remained stable what type of physical activity do you participate in: none cheryl/bahai: Uatsdin seatbelt use: sometimes do you feel safe at home: Yes 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 Date Name GA/Weeks Outcome Route Bth Weight Infant Gen Labor Lgth Anesthesia Del Locatn Provider FOB 03/16/17 Willy 40 live - full term 7lbs 4oz Male epidural [facility] D jacobo Lees Yousif 06/17/20 Sally 40 live - full term 7#6oz Male epidural [facility] ANGIE Delivery Date: 03/16/17 Last Updated by: Kristen Zhong No issues during or delivery HPI 30 wk ob Details: JASWINDER WARE is a 29 year old who presents for routine OB visit. OB Visit LAURA Calculator Estimated Delivery Date Method Current WG Current Estimate 02/28/25 LMP (Certain) 30w 3d Other Estimates 02/25/25 Ultrasound #1 30w 6d Expected Delivery Route/Plan Labor Preferences- CB/BF classes: no labor support person: Yousif labor intervention preferences: [] pain management options preferred: epidural cut cord/dad catch: cord : yes but not usually successful PP control planned: discussed discussed possible routes of delivery and associated risks: [] special requests: [] Specific Issue/Plans Covid status: [] Flu vaccine: [] Tdap vaccine: declines Rhogam: given 12/08/24 LARC form signed: yes Problem list reviewed and updated with the most current plan of care details and appropriate orders placed. Relevant counseling for the gestational age provided. Continue routine care and follow up unless otherwise noted in visit notes/problem list details Initial Weight: Not Recorded Date -???-???-???-???-?? ?-???-???-???-???-? ??-???-???- EGA Weight BP Urine Prot -???-???-???-???-?? ?-???-???-???-???-? ??-???-???- Glucose FHR FuHt Pres Dilation -???-???-???-???-?? ?-???-???-???-???-? ??-???-???- Effaced St Visit Note 07/30/24 -???-???-???-???-?? ?-???-???-???-???-? ??-???-???- 9w 4d 138 lb 4 oz 132/83 -???-???-???-???-?? ?-???-???-???-???-? ??-???-???- 172 -???-???-???-???-?? ?-???-???-???-???-? ??-???-???- KW- CRL cons with dates. Declines NIPT 08/26/24 -???-???-???-???-?? ?-???-???-???-???-? ??-???-???- 13w 3d 141 lb 2 oz 134/84 Negative -???-???-???-???-?? ?-???-???-???-???-? ??-???-???- Negative 160 -???-???-???-???-?? ?-???-???-???-???-? ??-???-???- JV- nausea i mproving. wants to start with hospital anatomy scan. fhx amiewalker. discussed might need mfm ultrasound if any abnormalities. declines genetic or AFP as discussed at last visit. 09/23/24 -???-???-???-???-?? ?-???-???-???-???-? ??-???-???- 17w 3d 146 lb 8 oz 114/79 Negative -???-???-???-???-?? ?-???-???-???-???-? ??-???-???- Negative 155 -???-???-???-???-?? ?-???-???-???-???-? ??-?? (more content not included)... Normal [facility] Absolute lymphocyte countOrd ered By: Ness Dowd on 12-08-2024 Lymphocytes Auto (Unsp spec) [#/Vol] 1.23 10*3/uL 0.83-4.51 [facility] Absolute neutrophil countOrd ered By: Ness Dowd on 12-08-2024 Neutrophils (Bld) [#/Vol] 6.2 10*3/uL 2.0-7.7 [facility] Automated lymphocyte count a s percentage of total leukocytesOrdered By: Ness Dowd on 12-08-2024 Lymphocytes/100 WBC Auto (Unsp spec) 15.4 % Low 19-41 [facility] Basophil percentageOrdered B y: Ness Dowd on 12-08-2024 Basophils/100 WBC (Bld) 0.3 % 0-[address] [facility] CBC W/Diff, Automatedon 07-0 8-2025 Absolute Lymph 1.23 X10 3/uL Normal 0.83-4.51 [facility] Comment on above: Performed By: #### L 509.4006, BTS, L100.0100, L3890.6006, L509.8002, L501.0250 ####[facility] [id number] [place], [address] Absolute Neut 6.2 X10 3/uL Normal 2.0-7.7 [facility] Comment on above: Performed By: #### L 509.4006, BTS, L100.0100, L3890.6006, L509.8002, L501.0250 ####[facility] [address] [place], [address] Basophils/100 WBC (Bld) 0.3 % Normal 0-[address] [facility] Comment on above: Performed By: #### L 509.4006, BTS, L100.0100, L3890.6006, L509.8002, L501.0250 ####[facility] [address] [place], [address] Eosinophils/100 WBC (Bld) 0.9 % Normal 0-5 [facility] Comment on above: Performed By: #### L 509.4006, BTS, L100.0100, L3890.6006, L509.8002, L501.0250 ####[facility] [address] [place], [address] Erythrocyte distribution width (RBC) [Ratio] 12.7 % Normal 11.6-14.6 [facility] Comment on above: Performed By: #### L 509.4006, BTS, L100.0100, L3890.6006, L509.8002, L501.0250 ####[facility] [address] [place], [address] Hematocrit (Bld) [Volume fraction] 32.4 % Low 37-47 [facility] Comment on above: Performed By: #### L 509.4006, BTS, L100.0100, L3890.6006, L509.8002, L501.0250 ####[facility] [address] [place], [address] Hemoglobin (Bld) [Mass/Vol] 10.8 g/dL Low 12.0-15.0 [facility] Comment on above: Performed By: #### L 509.4006, BTS, L100.0100, L3890.6006, L509.8002, L501.0250 ####[facility] [address] [place], [address] IG% 0.600 Normal 0.0-0.9 [facility] Comment on above: Result Comment: IG% - Immature Granulocytes (promyelocytes, myelocytes and metamyelocytes) > 1% indicates that a LEFT SHIFT is Present. Performed By: #### L 509.4006, BTS, L100.0100, L3890.6006, L509.8002, L501.0250 ####[facility] [address] [place], [address] Lymphocytes/100 WBC (Bld) 15.4 % Low 19-41 [facility] Comment on above: Performed By: #### L 509.4006, BTS, L100.0100, L3890.6006, L509.8002, L501.0250 ####[facility] [address] [place], [address] MCH (RBC) [Entitic mass] 31.8 pg Normal 27.0-32.0 [facility] Comment on above: Performed By: #### L 509.4006, BTS, L100.0100, L3890.6006, L509.8002, L501.0250 ####[facility] [address] [place], [address] MCHC (RBC) [Mass/Vol] 33.3 g/dL Normal 32-36 [facility] Comment on above: Performed By: #### L 509.4006, BTS, L100.0100, L3890.6006, L509.8002, L501.0250 ####[facility] [address] [place], [address] MCV (RBC) [Entitic vol] 95.3 fL Normal 81-99 [facility] Comment on above: Performed By: #### L 509.4006, BTS, L100.0100, L3890.6006, L509.8002, L501.0250 ####[facility] [address] [place], [address] Monocytes/100 WBC (Bld) 4.9 % Normal 0-10 [facility] Comment on above: Performed By: #### L 509.4006, BTS, L100.0100, L3890.6006, L509.8002, L501.0250 ####[facility] [address] [place], [address] Neutrophils/100 WBC (Bld) 77.9 % High 47-70 [facility] Comment on above: Performed By: #### L 509.4006, BTS, L100.0100, L3890.6006, L509.8002, L501.0250 ####[facility] [address] [place], [address] Nucleated RBC (Bld) [#/Vol] 0 10*3/uL Normal 0-5 [facility] Comment on above: Performed By: #### L 509.4006, BTS, L100.0100, L3890.6006, L509.8002, L501.0250 ####[facility] [address] [place], [address] Platelet mean volume (Bld) [Entitic vol] 10.9 fL Normal 6.2-12.0 [facility] Comment on above: Performed By: #### L 509.4006, BTS, L100.0100, L3890.6006, L509.8002, L501.0250 ####[facility] [address] [place], [address] Platelets (Bld) [#/Vol] 185 10*3/uL Normal 150-450 [facility] Comment on above: Performed By: #### L 509.4006, BTS, L100.0100, L3890.6006, L509.8002, L501.0250 ####[facility] [address] [place], [address] RBC (Bld) [#/Vol] 3.40 10*6/uL Low 4.2-5.[address] [facility] Comment on above: Performed By: #### L 509.4006, BTS, L100.0100, L3890.6006, L509.8002, L501.0250 ####[facility] [address] [place], [address] RDW SD 43.3 fl Normal 35.1-43.9 [facility] Comment on above: Performed By: #### L 509.4006, BTS, L100.0100, L3890.6006, L509.8002, L501.0250 ####[facility] [address] [place], [address] WBC (Bld) [#/Vol] 8.0 10*3/uL Normal 4.4-11.0 [facility] Comment on above: Performed By: #### L 509.4006, BTS, L100.0100, L3890.6006, L509.8002, L501.0250 ####[facility] [address] [place], [address] Eosinophil percentageOrdered By: Ness Dowd on 12-08-2024 Eosinophils/100 WBC (Bld) 0.9 % 0-5 [facility] Erythrocyte distribution wid th ratioOrdered By: Ness Dowd on 12-08-2024 Erythrocyte distribution width (RBC) [Ratio] 12.7 % 11.6-14.6 [facility] Erythrocyte distribution wid th standard deviationOrdered By: Ness Dowd on 12-08-2024 Erythrocyte distribution width (RBC) [Ratio] 43.3 fl 35.1-43.9 [facility] Glucose Challenge Gest 1H 50 eli 12-08-2024 GLU GEST 50g 1H 108 mg/dL Normal 70-140 [facility] Comment on above: Performed By: #### L 509.4006, BTS, L100.0100, L3890.6006, L509.8002, L501.0250 ####[facility] [address] [place], [address] Glucose measurement at 2 michelle rs post-dose gestational glucose tolerance testOrdered By: Ness Dowd on 12-08-2024 Glucose [Mass/Vol] 108 mg/dL 70-140 [facility] HIVon 12-08-2024 HIV Non-Reactive Normal Nonreactive [facility] Comment on above: Result Comment: Non- Reactive Reactive Repeatedly reactive samples must be confirmed according to CDC recommended confirmatory algorithms. The subresults for either HIVAG or AHIV can be used as an aid in the selection of the confirmation algorithm for reactive samples. Send out specimens with Reactive results to [facility] for confirmation. Order the HIV antibody detection and differentiation: #[id number] Performed By: #### L 509.4006, BTS, L100.0100, L3890.6006, L509.8002, L501.0250 ####[facility] [address] [place], [place], [id number] Hematocrit Auto (Bld) [Volum e fraction]Ordered By: Ness Dowd on 12-08-2024 Hematocrit (Bld) [Volume fraction] 32.4 % Low 37-47 [facility] Hemoglobin measurementOrdere d By: Ness Dowd on 12-08-2024 Hemoglobin (Bld) [Mass/Vol] 10.8 g/dL Low 12.0-15.0 [facility] Immature granulocytes/100 WB C Auto (Bld)Ordered By: Ness Dowd on 12-08-2024 Immature granulocytes/100 WBC (Bld) 0.600 % 0.0-0.9 [facility] Comment on above: IG% - Immature Granu locytes (promyelocytes, myelocytes and metamyelocytes) > 1% indicates that a LEFT SHIFT is Present. L509.4006on 12-08-2024 Rubella IgG REAC Normal Nonreactive [facility] Comment on above: Result Comment: Anti body Result: Interpretation Non-Reactive: Non-Immune Reactive: Immune The following results were obtained with the [facility] Rubella IgG assay. Results from assays of other manufacturers cannot be used interchangeably. Performed By: #### L 509.4006, BTS, L100.0100, L3890.6006, L509.8002, L501.0250 ####[facility] [address] [place], [address] Laboratory - Chemistry and C hemistry - challengeOrdered By: Randi Glover on 12-08-2024 Glucose Ql (U) Negative [facility] Laboratory - UrinalysisOrder ed By: Randi Glover on 12-08-2024 Protein Ql (U) Negative [facility] MCV (mean corpuscular volume ) determinationOrdered By: Ness Dowd on 12-08-2024 MCV (RBC) [Entitic vol] 95.3 fL 81-99 [facility] Mean corpuscular hemoglobin (MCH) determinationOrdered By: Ness Dowd on 12-08-2024 MCH (RBC) [Entitic mass] 31.8 pg 27.0-32.0 [facility] Mean corpuscular hemoglobin concentration (MCHC) determinationOrdered By: Ness Dowd on 12-08-2024 MCHC (RBC) [Mass/Vol] 33.3 g/dL 32-36 [facility] Mean platelet volume determi nationOrdered By: Ness Dowd on 12-08-2024 Platelet mean volume (Bld) [Entitic vol] 10.9 fL 6.2-12.0 [facility] Monocyte percentageOrdered B y: Ness Dowd on 12-08-2024 Monocytes/100 WBC (Bld) 4.9 % 0-[address] [facility] Neutrophil percentageOrdered By: Ness Dowd on 12-08-2024 Neutrophils/100 WBC (Bld) 77.9 % High 47-70 [facility] No Panel InformationOrdered By: Ness Dowd on 12-08-2024 HIV (1&2) Antibody Non-Reactive Nonreactive [facility] Comment on above: Non-ReactiveReactive Repeatedly reactive samples must be confirmed according to CDC recommended confirmatory algorithms. The subresults for either HIVAG or AHIV can be used as an aid in the selection of the confirmation algorithm for reactive samples.Send out specimens with Reactive results to [facility] for confirmation.Order the HIV antibody detection and differentiation: #[id number] Nucleated red blood cell per centageOrdered By: Ness Dowd on 12-08-2024 Nucleated RBC/100 WBC (Bld) [Ratio] 0 % 0-5 [facility] Apartment Community Assistant Manager Office Visit Reporton 12-08-2024 Apartment Community Assistant Manager Office Visit Report [facility]'s [address], [address] [place] [address] OFFICE VISIT Date of Service: 12/08/24 MR#: [id number] Acct: [id number] Name: JASWINDER WARE Rep #: [id number] : 1995 Provider: BIJAN lock Age/Sex: 29/F [place] [facility] [facility] [place]: Signed Intake Vital Signs 10/19/24 10:51 11/18/24 08:13 12/08/24 13:30 Height 5 ft 3 in 5 ft 3 in 5 ft 3 in Weight: 155 lb 8 oz BMI 27.5 BP 124/76 H Intake Visit Reasons: 28 wk ob Chief Complaint: 28 Week OB Kier Drier Required: No Is patient in pain?: No Allergies No Known Allergies Allergy (Verified 12/08/24 13:31) Medications ???Medication ???Instructions ???Recorded ???Confirmed ???Type Cholecalciferol (Vitamin D3) 5,000 mg PO DAILY vitamin 06/16/20 12/08/24 History [Vitamin D3] multivit-min no.71-iron fum 28 cap PO 07/17/24 12/08/24 History mg-folate no.1 1 mg-dha 300 mg capsule (PNV-Monette) ondansetron 4 mg disintegrating 4 mg PO Q6H PRN nausea and 5 12/08/24 Rx tablet vomiting #90 tabs Last Menstrual Period: 05/24/24 Zika: Zika virus screening: Negative : Yes PFSH PFSH Family History Sister Mango [place] malformation Social History adopted: No household members: spouse and children number of children: 2 current occupational status: unemployed current occupation: [employer] pets and animals: Yes pets and animals: dog(s), horse(s) and other details: Hens history of recent travel: No sexually active: Yes Smoking Status: Never smoker alcohol intake: never substance use type: does not use well-balanced diet: daily or most days caffeine: No eating out: rarely or never during the past year weight has: remained stable what type of physical activity do you participate in: none cheryl/bahai: Uatsdin seatbelt use: sometimes do you feel safe at home: Yes 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 Date Name GA/Weeks Outcome Route Bth Weight Gen Labor Lgth Anesthesia Del Locatn Provider FOB 03/16/17 Willy 40 live - full term 7lbs 4oz Male epidural [facility] D jacobo Dodd 06/17/20 Sally 40 live - full term 7#6oz Male epidural [facility] ANGIE Delivery Date: 03/16/17 Last Updated by: Kristen Zhong No issues during or delivery HPI 28 wk ob Details: JASWINDER WARE is a 29 year old who presents for routine OB visit. OB Visit LAURA Calculator Estimated Delivery Date Method Current WG Current Estimate 02/28/25 LMP (Certain) 28w 2d Other Estimates 02/25/25 Ultrasound #1 28w 5d Expected Delivery Route/Plan Labor Preferences- CB/BF classes: no labor support person: Yousif labor intervention preferences: [] pain management options preferred: epidural cut cord/dad catch: cord : yes but not usually successful PP control planned: discussed discussed possible routes of delivery and associated risks: [] special requests: [] Specific Issue/Plans Covid status: [] Flu vaccine: [] Tdap vaccine: declines Rhogam: given 12/08/24 LARC form signed: yes Problem list reviewed and updated with the most current plan of care details and appropriate orders placed. Relevant counseling for the gestational age provided. Continue routine care and follow up unless otherwise noted in visit notes/problem list details Initial Weight: Not Recorded Date -???-???-???-???-?? ?-???-???-???-???-? ??-???-???- EGA Weight BP Urine Prot -???-???-???-???-?? ?-???-???-???-???-? ??-???-???- Glucose FHR FuHt Pres Dilation -???-???-???-???-?? ?-???-???-???-???-? ??-???-???- Effaced St Visit Note 07/30/24 -???-???-???-???-?? ?-???-???-???-???-? ??-???-???- 9w 4d 138 lb 4 oz 132/83 -???-???-???-???-?? ?-???-???-???-???-? ??-???-???- 172 -???-???-???-???-?? ?-???-???-???-???-? ??-???-???- KW- CRL cons with dates. Declines NIPT 08/26/24 -???-???-???-???-?? ?-???-???-???-???-? ??-???-???- 13w 3d 141 lb 2 oz 134/84 Negative -???-???-???-???-?? ?-???-???-???-???-? ??-???-???- Negative 160 -???-???-???-???-?? ?-???-???-???-???-? ??-???-???- JV- nausea i mproving. wants to start with hospital anatomy scan. fhx dandy-walker. discussed might need mfm ultrasound if any abnormalities. declines genetic or AFP as discussed at last visit. 09/23/24 -???-???-???-???-?? ?-???-???-???-???-? ??-???-???- 17w 3d 146 lb 8 oz 114/79 Negative -???-???-???-???-?? ?-???-???-???-???-? ??-???-???- N (more content not included)... Normal [facility] Platelet countOrdered By: Branden Dowd on 12-08-2024 Platelets (Bld) [#/Vol] 185 10*3/uL 150-450 [facility] RBC Auto (Bld) [#/Vol]Ordere d By: Ness Dowd on 12-08-2024 RBC (Bld) [#/Vol] 3.40 10*6/uL Low 4.2-5.[address] [facility] Syphilis Antibodieson 2024 Syphilis Abs Non-Reactive Normal Nonreactive [facility] Comment on above: Performed By: #### L 509.4006, BTS, L100.0100, L3890.6006, L509.8002, L501.0250 ####[facility] [address] [place], [place], [id number] Type AND Screenon 12-08-2024 Ab SCREEN GEL Negative Normal [facility] Comment on above: Order Comment: PN Performed By: #### L 509.4006, BTS, L100.0100, L3890.6006, L509.8002, L501.0250 ####[facility] [address] [place], [address] White blood cell (WBC) count Ordered By: Ness Dowd on 12-08-2024 WBC (Bld) [#/Vol] 8.0 10*3/uL 4.4-11.0 [facility] Apartment Community Assistant Manager Office Visit Reporton 11-18-2024 Apartment Community Assistant Manager Office Visit Report [facility]'s [address], [address] [place] [address] OFFICE VISIT Date of Service: 11/18/24 MR#: [id number] Acct: [id number] Name: JEANIEJASWINDER J Rep #: [id number] : 1995 Provider: MELO Aguilera ams Age/Sex: 29/F [place] [facility] [place] Status: Signed Intake Vital Signs 10/19/24 10:51 11/18/24 08:08 11/18/24 08:13 Height 5 ft 3 in 5 ft 3 in 5 ft 3 in Weight: 151 lb 8 oz BMI 26.8 BP 119/73 Intake Visit Reasons: 26 wk ob Kier Drier Required: No Is patient in pain?: No Allergies No Known Allergies Allergy (Verified 11/18/24 08:08) Medications ???Medication ???Instructions ???Recorded ???Confirmed ???Type Cholecalciferol (Vitamin D3) 5,000 mg PO DAILY vitamin 06/16/20 11/18/24 History [Vitamin D3] multivit-min no.71-iron fum 28 cap PO 07/17/24 11/18/24 History mg-folate no.1 1 mg-dha 300 mg capsule (PNV-Monette) ondansetron 4 mg disintegrating 4 mg PO Q6H PRN nausea and 5 11/18/24 Rx tablet vomiting #90 tabs Last Menstrual Period: 05/24/24 Zika: Zika virus screening: Negative : No PFSH PFSH Family History Sister Mango [place] malformation Social History adopted: No household members: spouse and children number of children: 2 current occupational status: unemployed current occupation: [employer] pets and animals: Yes pets and animals: dog(s), horse(s) and other details: Hens history of recent travel: No sexually active: Yes Smoking Status: Never smoker alcohol intake: never substance use type: does not use well-balanced diet: daily or most days caffeine: No eating out: rarely or never during the past year weight has: remained stable what type of physical activity do you participate in: none cheryl/bahai: Uatsdin seatbelt use: sometimes do you feel safe at home: Yes 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 Date Name GA/Weeks Outcome Route Bth Weight Gen Labor Lgth Anesthesia Del Locatn Provider FOB 03/16/17 Willy 40 live - full term 7lbs 4oz Male epidural [facility] D rMichael Sealbasil Yousif 06/17/20 Sally 40 live - full term 7#6oz Male epidural [facility] ANGIE Delivery Date: 03/16/17 Last Updated by: Kristen Zhong No issues during or delivery HPI 26 wk ob Details: JASWINDER WARE is a 29 year old who presents for routine OB visit. OB Visit LAURA Calculator Estimated Delivery Date Method Current WG Current Estimate 02/28/25 LMP (Certain) 25w 3d Other Estimates 02/25/25 Ultrasound #1 25w 6d Expected Delivery Route/Plan Labor Preferences- CB/BF classes: [] labor support person: [] labor intervention preferences: [] pain management options preferred: [] cut cord/dad catch: [] : [] PP control planned: [] discussed possible routes of delivery and associated risks: [] special requests: [] Specific Issue/Plans Covid status: [] Flu vaccine: [] Tdap vaccine: [] Rhogam: [] LARC form signed: [] Problem list reviewed and updated with the most current plan of care details and appropriate orders placed. Relevant counseling for the gestational age provided. Continue routine care and follow up unless otherwise noted in visit notes/problem list details Initial Weight: Not Recorded Date -???-???-???-???-?? ?-???-???-???-???-? ??-???-???- EGA Weight BP Urine Prot -???-???-???-???-?? ?-???-???-???-???-? ??-???-???- Glucose FHR FuHt Pres Dilation -???-???-???-???-?? ?-???-???-???-???-? ??-???-???- Effaced St Visit Note 07/30/24 -???-???-???-???-?? ?-???-???-???-???-? ??-???-???- 9w 4d 138 lb 4 oz 132/83 -???-???-???-???-?? ?-???-???-???-???-? ??-???-???- 172 -???-???-???-???-?? ?-???-???-???-???-? ??-???-???- KW- CRL cons with dates. Declines NIPT 08/26/24 -???-???-???-???-?? ?-???-???-???-???-? ??-???-???- 13w 3d 141 lb 2 oz 134/84 Negative -???-???-???-???-?? ?-???-???-???-???-? ??-???-???- Negative 160 -???-???-???-???-?? ?-???-???-???-???-? ??-???-???- JV- nausea i mproving. wants to start with hospital anatomy scan. fhx jeannette. discussed might need mfm ultrasound if any abnormalities. declines genetic or AFP as discussed at last visit. 09/23/24 -???-???-???-???-?? ?-???-???-???-???-? ??-???-???- 17w 3d 146 lb 8 oz 114/79 Negative -???-???-???-???-?? ?-???-???-???-???-? ??-???-???- Negative 155 -???-???-???-???-?? ?-???-???-???-???-? ??-???-???- KW- no vb/cr amping. possible movement. (more content not included)... Normal [facility] Laboratory - Chemistry and C hemistry - challengeOrdered By: Mari Saavedra on 10-19-2024 Glucose Ql (U) Negative [facility] Laboratory - UrinalysisOrder ed By: Mari Saavedra on 10-19-2024 Protein Ql (U) Negative [facility] Apartment Community Assistant Manager Office Visit Reporton 10-19-2024 Apartment Community Assistant Manager Office Visit Report [facility]'s [address], [address] [place] [address] OFFICE VISIT Date of Service: 10/19/24 MR#: [id number] Acct: [id number] Name: JASWINDER WARE Marlena Rep #: [id number] : 1995 Provider: Dr. Mari Carrillo DO Age/Sex: 29/F [place] [facility] [place]: Signed Intake Vital Signs 07/30/24 08:52 09/23/24 11:33 10/19/24 10:49 10/19/24 10:51 Height 5 ft 3 in 5 ft 3 in 5 ft 3 in 5 ft 3 in Weight: 147 lb 8 oz BMI 26.1 BP 114/72 Intake Visit Reasons: 22wk ob Kier Drier Required: No Is patient in pain?: No Allergies No Known Allergies Allergy (Verified 10/19/24 10:49) Medications ???Medication ???Instructions ???Recorded ???Confirmed ???Type Cholecalciferol (Vitamin D3) 5,000 mg PO DAILY vitamin 06/16/20 10/19/24 History [Vitamin D3] multivit-min no.71-iron fum 28 cap PO 07/17/24 10/19/24 History mg-folate no.1 1 mg-dha 300 mg capsule (PNV-Monette) ondansetron 4 mg disintegrating 4 mg PO Q6H PRN nausea and 5 10/19/24 Rx tablet vomiting #90 tabs Last Menstrual Period: 05/24/24 Zika: Zika virus screening: Negative : No PFSH PFSH Family History Sister Mango [place] malformation Social History adopted: No household members: spouse and children number of children: 2 current occupational status: unemployed current occupation: [employer] pets and animals: Yes pets and animals: dog(s), horse(s) and other details: Hens history of recent travel: No sexually active: Yes Smoking Status: Never smoker alcohol intake: never substance use type: does not use well-balanced diet: daily or most days caffeine: No eating out: rarely or never during the past year weight has: remained stable what type of physical activity do you participate in: none cheryl/bahai: Uatsdin seatbelt use: sometimes do you feel safe at home: Yes 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 Date Name GA/Weeks Outcome Route Bth Weight Infant Gen Labor Lgth Anesthesia Del Locatn Provider FOB 03/16/17 Willy 40 live - full term 7lbs 4oz Male epidural [facility] Anitha Dodd 06/17/20 Sally 40 live - full term 7#6oz Male epidural [facility] ANGIE Delivery Date: 03/16/17 Last Updated by: Kristen Zhong No issues during or delivery HPI 22wk ob Details: JASWINDER WARE is a 29 year old who presents for routine OB visit. OB Visit LAURA Calculator Estimated Delivery Date Method Current WG Current Estimate 02/28/25 LMP (Certain) 21w 1d Other Estimates 02/25/25 Ultrasound #1 21w 4d Expected Delivery Route/Plan Labor Preferences- CB/BF classes: [] labor support person: [] labor intervention preferences: [] pain management options preferred: [] cut cord/dad catch: [] : [] PP control planned: [] discussed possible routes of delivery and associated risks: [] special requests: [] Specific Issue/Plans Covid status: [] Flu vaccine: [] Tdap vaccine: [] Rhogam: [] LARC form signed: [] Problem list reviewed and updated with the most current plan of care details and appropriate orders placed. Relevant counseling for the gestational age provided. Continue routine care and follow up unless otherwise noted in visit notes/problem list details Initial Weight: Not Recorded Date -???-???-???-???-?? ?-???-???-???-???-? ??-???-???- EGA Weight BP Urine Prot -???-???-???-???-?? ?-???-???-???-???-? ??-???-???- Glucose FHR FuHt Pres Dilation -???-???-???-???-?? ?-???-???-???-???-? ??-???-???- Effaced St Visit Note 07/30/24 -???-???-???-???-?? ?-???-???-???-???-? ??-???-???- 9w 4d 138 lb 4 oz 132/83 -???-???-???-???-?? ?-???-???-???-???-? ??-???-???- 172 -???-???-???-???-?? ?-???-???-???-???-? ??-???-???- KW- CRL cons with dates. Declines NIPT 08/26/24 -???-???-???-???-?? ?-???-???-???-???-? ??-???-???- 13w 3d 141 lb 2 oz 134/84 Negative -???-???-???-???-?? ?-???-???-???-???-? ??-???-???- Negative 160 -???-???-???-???-?? ?-???-???-???-???-? ??-???-???- JV- nausea i mproving. wants to start with hospital anatomy scan. fhx jeannette. discussed might need mfm ultrasound if any abnormalities. declines genetic or AFP as discussed at last visit. 09/23/24 -???-???-???-???-?? ?-???-???-???-???-? ??-???-???- 17w 3d 146 lb 8 oz 114/79 Negative -???-???-???-???-?? ?-???-???-???-???-? ??-???-???- Negative 155 -???-???-???-???-?? ?-???-???-???-???-? ??-???-??? (more content not included)... Normal [facility] OB Anatomy w/ Transvaginalon 10-12-2024 OB Anatomy w/ Transvaginal [facility] Imaging Services [address] [place], [place] [id number] OB Anatomy w/ Transvaginal MR#: [id number] Acct: [id number] Name: JASWINDER WARE Rep #: [id number] : 1995 F 29 From: Karthikeyan fitzpatrick MD PCP: Dr. Faby Griggs DO Status: REG CLI Study: OB Anatomy w/ Transvaginal Date of Exam: 10/12 Exam# [id number] Ordering Dr: Mari Rockwell DO PROCEDURE: OB ANATOMY W/ TRANSVAGINAL 10/12/2024 REASON FOR EXAM: ANATOMY/CERVICAL LENGTH TECHNIQUE: High resolution obstetric ultrasound performed using a 2D transducer. Standard views obtained, including biometry, anatomy survey, and Doppler studies. COMPARISON: None FINDINGS LMP: May 24, 2025 Number: 1 Position: Transverse left Placental Position: Anterior and not low-lying Placental Abnormalities: None DIMENSIONS: Biparietal Diameter: 4.6 cm: 19 weeks and 6 days: 36 percentile/ Head Circumference: 17.5 cm: 20 weeks and 0 days: 34 percentile/ Abdominal Circumference: 14.9 cm: 20 weeks and 1 day: 44th percentile/ Femur Length: 3.1 cm: 19 weeks and 3 days: 20 percentile/ ESTIMATED WEIGHT: 318 g plus/-48 g ESTIMATED WEIGHT PERCENTILE (24+ weeks): 30 ESTIMATED GESTATIONAL AGE: Baseline: 20 weeks and 1 day By Ultrasound: 20 weeks and 0 days ESTIMATED DATE OF DELIVERY: Baseline: February 28, 2025 By Ultrasound: March 01, 2025 BIOPHYSICAL ASSESSMENT: Amniotic Fluid Volume: 5.3 Amniotic Fluid Index within normal limits Cardiac Motion: 150 beats per minute (average) Trunk and Limb Motion: Present. MATERNAL ANATOMY: Adnexa: Neither maternal ovary is successfully identified. Cervical Length (if measured): 4.8 cm ANATOMY: Spine: Unremarkable Cranium: Unremarkable Cerebellum: Unremarkable Cisterna Magna: Unremarkable Cavum Septum Pellucidi: Unremarkable Lateral Ventricles: Unremarkable Choroid Plexus: Unremarkable Midline Falx: Unremarkable Nuchal Fold: Unremarkable Upper Lip: Unremarkable Heart: Unremarkable Ventricular Outflow Tracts: Unremarkable Stomach: Unremarkable Kidneys: Bladder: Unremarkable Umbilical Cord: Unremarkable Extremities: Unremarkable US/OB Anatomy w/ Transvaginal IMPRESSION: Single live intrauterine gestation with a mean gestational age of 20 weeks. Reading Location: [id number] CC: Dr. Mari Rockwell, DO; Dr. Faby Griggs, DO Branch Administrator: Signed Normal [facility] Laboratory - Chemistry and C hemistry - challengeOrdered By: Ness Dowd on 09-23-2024 Glucose Ql (U) Negative [facility] Laboratory - UrinalysisOrder ed By: Ness Dowd on 09-23-2024 Protein Ql (U) Negative [facility] Apartment Community Assistant Manager Office Visit Reporton 09-23-2024 Apartment Community Assistant Manager Office Visit Report [facility] [address], [address] [place] [address] OFFICE VISIT Date of Service: 09/23/24 MR#: [id number] Acct: [id number] Name: JASWINDER WARE Marlena Rep #: [id number] : 1995 Provider: MELO Aguilera ams Age/Sex: 29/F [place] [facility] [place] Status: Signed Intake Vital Signs 07/30/24 08:52 08/26/24 08:53 09/23/24 11:28 09/23/24 11:33 Height 5 ft 3 in 5 ft 3 in 5 ft 3 in 5 ft 3 in Weight: 146 lb 8 oz BMI 25.9 BP 114/79 Intake Visit Reasons: 18wk ob Kier Drier Required: No Is patient in pain?: No Allergies No Known Allergies Allergy (Verified 09/23/24 11:28) Medications ???Medication ???Instructions ???Recorded ???Confirmed ???Type Cholecalciferol (Vitamin D3) 5,000 mg PO DAILY vitamin 06/16/20 09/23/24 History [Vitamin D3] multivit-min no.71-iron fum 28 cap PO 07/17/24 09/23/24 History mg-folate no.1 1 mg-dha 300 mg capsule (PNV-Monette) ondansetron 4 mg disintegrating 4 mg PO Q6H PRN nausea and 5 09/23/24 Rx tablet vomiting #90 tabs Last Menstrual Period: 05/24/24 Zika: Zika virus screening: Negative : Yes PFSH PFSH Family History Sister Mango [place] malformation Social History adopted: No household members: spouse and children number of children: 2 current occupational status: unemployed current occupation: [employer] pets and animals: Yes pets and animals: dog(s), horse(s) and other details: Hens history of recent travel: No sexually active: Yes Smoking Status: Never smoker alcohol intake: never substance use type: does not use well-balanced diet: daily or most days caffeine: No eating out: rarely or never during the past year weight has: remained stable what type of physical activity do you participate in: none cheryl/bahai: Uatsdin seatbelt use: sometimes do you feel safe at home: Yes 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 Date Name GA/Weeks Outcome Route Bth Weight Infant Gen Labor Lgth Anesthesia Del Locatn Provider FOB 03/16/17 Willy 40 live - full term 7lbs 4oz Male epidural [facility] D jacobo Lees Yousif 06/17/20 Sally 40 live - full term 7#6oz Male epidural [facility] ANGIE Delivery Date: 03/16/17 Last Updated by: Kristen Zhong No issues during or delivery HPI 18wk ob Details: JASWINDER WARE is a 29 year old who presents for routine OB visit. OB Visit LAURA Calculator Estimated Delivery Date Method Current WG Current Estimate 02/28/25 LMP (Certain) 17w 3d Other Estimates 02/25/25 Ultrasound #1 17w 6d Expected Delivery Route/Plan Labor Preferences- CB/BF classes: [] labor support person: [] labor intervention preferences: [] pain management options preferred: [] cut cord/dad catch: [] : [] PP control planned: [] discussed possible routes of delivery and associated risks: [] special requests: [] Specific Issue/Plans Covid status: [] Flu vaccine: [] Tdap vaccine: [] Rhogam: [] LARC form signed: [] Problem list reviewed and updated with the most current plan of care details and appropriate orders placed. Relevant counseling for the gestational age provided. Continue routine care and follow up unless otherwise noted in visit notes/problem list details Initial Weight: Not Recorded Date -???-???-???-???-?? ?-???-???-???-???-? ??-???-???- EGA Weight BP Urine Prot -???-???-???-???-?? ?-???-???-???-???-? ??-???-???- Glucose FHR FuHt Pres Dilation -???-???-???-???-?? ?-???-???-???-???-? ??-???-???- Effaced St Visit Note 07/30/24 -???-???-???-???-?? ?-???-???-???-???-? ??-???-???- 9w 4d 138 lb 4 oz 132/83 -???-???-???-???-?? ?-???-???-???-???-? ??-???-???- 172 -???-???-???-???-?? ?-???-???-???-???-? ??-???-???- KW- CRL cons with dates. Declines NIPT 08/26/24 -???-???-???-???-?? ?-???-???-???-???-? ??-???-???- 13w 3d 141 lb 2 oz 134/84 Negative -???-???-???-???-?? ?-???-???-???-???-? ??-???-???- Negative 160 -???-???-???-???-?? ?-???-???-???-???-? ??-???-???- JV- nausea i mproving. wants to start with hospital anatomy scan. fhx dandy-walker. discussed might need mfm ultrasound if any abnormalities. declines genetic or AFP as discussed at last visit. 09/23/24 -???-???-???-???-?? ?-???-???-???-???-? ??-???-???- 17w 3d 146 lb 8 oz 114/79 Negative -???-???-???-???-?? ?-???-???-???-???-? ??-???-???- Negative 155 -???-???-???-???-?? ?-???-???-???-???-? ??-???-???- KW- no vb/cr (more content not included)... Normal [facility] - Chemistry and C hemistry - challengeOrdered By: Mari Saavedra on 08-26-2024 Glucose Ql (U) Negative [facility] - UrinalysisOrder ed By: Mari Saavedra on 08-26-2024 Protein Ql (U) Negative [facility] Apartment Community Assistant Manager Office Visit Reporton 08-26-2024 Apartment Community Assistant Manager Office Visit Report [facility] [address], [address] [place] [address] OFFICE VISIT Date of Service: 08/26/24 MR#: [id number] Acct: [id number] Name: JASWINDER WARE Rep #: [id number] : 1995 Provider: Dr. Mari Carrillo DO Age/Sex: 29/F [place] [facility] [place]: Signed Intake Vital Signs 06/17/20 03:19 07/30/24 08:52 08/26/24 08:52 08/26/24 08:53 Height 5 ft 3 in 5 ft 3 in 5 ft 3 in 5 ft 3 in Weight: 141 lb 2 oz BMI 25.0 BP 134/84 H Intake Visit Reasons: 13wk OB Kier Drier Required: No Is patient in pain?: No Allergies No Known Allergies Allergy (Verified 08/26/24 08:52) Medications ???Medication ???Instructions ???Recorded ???Confirmed ???Type Cholecalciferol (Vitamin D3) 5,000 mg PO DAILY vitamin 06/16/20 08/26/24 History [Vitamin D3] multivit-min no.71-iron fum 28 cap PO 07/17/24 08/26/24 History mg-folate no.1 1 mg-dha 300 mg capsule (PNV-Monette) ondansetron 4 mg disintegrating 4 mg PO Q6H PRN nausea and 5 08/26/24 Rx tablet vomiting #90 tabs Last Menstrual Period: 05/24/24 Zika: Zika virus screening: Negative : Yes PFSH PFSH Family History Sister Mango [place] malformation Social History adopted: No household members: spouse and children number of children: 2 current occupational status: unemployed current occupation: [employer] pets and animals: Yes pets and animals: dog(s), horse(s) and other details: Hens history of recent travel: No sexually active: Yes Smoking Status: Never smoker alcohol intake: never substance use type: does not use well-balanced diet: daily or most days caffeine: No eating out: rarely or never during the past year weight has: remained stable what type of physical activity do you participate in: none cheryl/bahai: Uatsdin seatbelt use: sometimes do you feel safe at home: Yes 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 Date Name GA/Weeks Outcome Route Bth Weight Gen Labor Lgth Anesthesia Del Locatn Provider FOB 03/16/17 Willy 40 live - full term 7lbs 4oz Male epidural [facility] D jacobo Dodd 06/17/20 Sally 40 live - full term 7#6oz Male epidural [facility] ANGIE Delivery Date: 03/16/17 Last Updated by: Kristen Zhong No issues during or delivery HPI 13wk OB Details: JASWINDER WARE is a 29 year old who presents for routine OB visit. OB Visit LAURA Calculator Estimated Delivery Date Method Current WG Current Estimate 02/28/25 LMP (Certain) 13w 3d Other Estimates 02/25/25 Ultrasound #1 13w 6d Expected Delivery Route/Plan Labor Preferences- CB/BF classes: [] labor support person: [] labor intervention preferences: [] pain management options preferred: [] cut cord/dad catch: [] : [] PP control planned: [] discussed possible routes of delivery and associated risks: [] special requests: [] Specific Issue/Plans Covid status: [] Flu vaccine: [] Tdap vaccine: [] Rhogam: [] LARC form signed: [] Problem list reviewed and updated with the most current plan of care details and appropriate orders placed. Relevant counseling for the gestational age provided. Continue routine care and follow up unless otherwise noted in visit notes/problem list details Initial Weight: Not Recorded Date -???-???-???-???-?? ?-???-???-???-???-? ??-???-???- EGA Weight BP Urine Prot -???-???-???-???-?? ?-???-???-???-???-? ??-???-???- Glucose FHR FuHt Pres Dilation -???-???-???-???-?? ?-???-???-???-???-? ??-???-???- Effaced St Visit Note 07/30/24 -???-???-???-???-?? ?-???-???-???-???-? ??-???-???- 9w 4d 138 lb 4 oz 132/83 -???-???-???-???-?? ?-???-???-???-???-? ??-???-???- 172 -???-???-???-???-?? ?-???-???-???-???-? ??-???-???- KW- CRL cons with dates. Declines NIPT 08/26/24 -???-???-???-???-?? ?-???-???-???-???-? ??-???-???- 13w 3d 141 lb 2 oz 134/84 -???-???-???-???-?? ?-???-???-???-???-? ??-???-???- 160 -???-???-???-???-?? ?-???-???-???-???-? ??-???-???- JV- nausea i mproving. wants to start with hospital anatomy scan. fhx danonel-walker. discussed might need mfm ultrasound if any abnormalities. declines genetic or AFP as discussed at last visit. ACOG First Trimester First Trimester: Second Trimester Second Trimester: Signs and Symptoms of Labor, Selecting a care provider, Reproductive Life Planning Contreception, Care Gomez (more content not included)... Normal [facility] PAP I-G w/rfx hrHPV-Aptimaon 08-04-2024 ADEQ Comment Normal . [facility] Comment on above: Order Comment: Speci men Comment: [id number] Comment: Source.............CervixSpecimen Comment: LMP / Prev Treat...[id number] Comment: Other..............Specimen Comment: No. of containers..01 ThinPrep Vial Result Comment: Sati sfactory for evaluation. Endocervical and/or squamous metaplastic cells (endocervical component) are present. Performed By: #### L 3890.6301, BTS, L100.0100, L7000.1800, M100.2200, L3890.6006, L7400.0353, L3890.6102, L509.8002 ####[facility] [address] [place], [place], [id number] COMM . Normal . [facility] Comment on above: Order Comment: Speci men Comment: [id number] Comment: Source.............CervixSpecimen Comment: LMP / Prev Treat...[id number] Comment: Other..............Specimen Comment: No. of containers..01 ThinPrep Vial Performed By: #### L 3890.6301, BTS, L100.0100, L7000.1800, M100.2200, L3890.6006, L7400.0353, L3890.6102, L509.8002 ####[facility] [address] [place], [place], [id number] COMMENT Comment Normal . [facility] Comment on above: Order Comment: Speci men Comment: [id number] Comment: Source.............CervixSpecimen Comment: LMP / Prev Treat...[id number] Comment: Other..............Specimen Comment: No. of containers..01 ThinPrep Vial Result Comment: This liquid based ThinPrep(R) pap test was screened with the use of an image guided system. Performed By: #### L 3890.6301, BTS, L100.0100, L7000.1800, M100.2200, L3890.6006, L7400.0353, L3890.6102, L509.8002 ####[facility] [address] [place], [place], [phone] DIAG Comment Normal . [facility] Comment on above: Order Comment: Speci men Comment: [id number] Comment: Source.............CervixSpecimen Comment: LMP / Prev Treat...[id number] Comment: Other..............Specimen Comment: No. of containers..01 ThinPrep Vial Result Comment: NEGA TIVE FOR INTRAEPITHELIAL LESION OR MALIGNANCY. Performed By: #### L 3890.6301, BTS, L100.0100, L7000.1800, M100.2200, L3890.6006, L7400.0353, L3890.6102, L509.8002 ####[facility] [address] [place], [place], [id number] HPV RFLX Comment Normal . [facility] Comment on above: Order Comment: Speci men Comment: [id number] Comment: Source.............CervixSpecimen Comment: LMP / Prev Treat...[id number] Comment: Other..............Specimen Comment: No. of containers..01 ThinPrep Vial Result Comment: The HPV DNA reflex criteria were not met with this specimen result therefore, no HPV testing was performed. Performed at: [address] [id number] Building Maintenance Repairer: Francia Armando MD, Phone: [phone] Performed By: #### L 3890.6301, BTS, L100.0100, L7000.1800, M100.2200, L3890.6006, L7400.0353, L3890.6102, L509.8002 ####[facility] [address] [place], [place], [id number] PAPSMR Comment Normal . [facility] Comment on above: Order Comment: Speci men Comment: [id number] Comment: Source.............CervixSpecimen Comment: LMP / Prev Treat...[id number] Comment: Other..............Specimen Comment: No. of containers..01 ThinPrep Vial Result Comment: The Pap smear is a screening test designed to aid in the detection of premalignant and malignant conditions of the uterine cervix. It is not a diagnostic procedure and should not be used as the sole means of detecting cervical cancer. Both false-positive and false-negative reports do occur. Performed By: #### L 3890.6301, BTS, L100.0100, L7000.1800, M100.2200, L3890.6006, L7400.0353, L3890.6102, L509.8002 ####[facility] [address] [place], [place], [phone] PERFORM Comment Normal . [facility] Comment on above: Order Comment: Speci men Comment: [id number] Comment: Source.............CervixSpecimen Comment: LMP / Prev Treat...[id number] Comment: Other..............Specimen Comment: No. of containers..01 ThinPrep Vial Result Comment: Vicki Collins, Vocational Nursing Instructor (ASCP) Performed By: #### L 3890.6301, BTS, L100.0100, L7000.1800, M100.2200, L3890.6006, L7400.0353, L3890.6102, L509.8002 ####[facility] [address] [place], [place], [id number] Chlamydia/GC JOSÉ LUIS aptimaon CHLAMY,NUC ACID Negative Normal Negative [facility] Comment on above: Performed By: #### L 3890.6301, BTS, L100.0100, L7000.1800, M100.2200, L3890.6006, L7400.0353, L3890.6102, L509.8002 #### [facility] [address] [place], [place], [phone] GC BY NUC ACID Negative Normal Negative [facility] Comment on above: Result Comment: Perf ormed at: =G - [facility] [address] [id number] Building Maintenance Repairer: Francia Armando MD, Phone: [phone] Performed By: #### L 3890.6301, BTS, L100.0100, L7000.1800, M100.2200, L3890.6006, L7400.0353, L3890.6102, L509.8002 #### [facility] [address] [place], [place], [phone] Urine Cultureon 08-01-2024 URC Mixed Gram Positive Organisms [place] Count 11,000-25,000 MIXC Mixed contaminants. Submit a new specimen if indicated. Normal [facility] Comment on above: Performed By: #### L 3890.6301, BTS, L100.0100, L7000.1800, M100.2200, L3890.6006, L7400.0353, L3890.6102, L509.8002 ####[facility] [address] [place], [place], [phone] Absolute lymphocyte countOrd ered By: Ness Dowd on 07-30-2024 Lymphocytes Auto (Unsp spec) [#/Vol] 1.91 10*3/uL 0.83-4.51 [facility] Absolute neutrophil countOrd ered By: Ness Dowd on 07-30-2024 Neutrophils (Bld) [#/Vol] 6.4 10*3/uL 2.0-7.7 [facility] Automated lymphocyte count a s percentage of total leukocytesOrdered By: Ness Dowd on 07-30-2024 Lymphocytes/100 WBC Auto (Unsp spec) 21.3 % 19-41 [facility] Basophil percentageOrdered B y: Ness Dowd on 07-30-2024 Basophils/100 WBC (Bld) 0.4 % 0-[address] [facility] C. trachomatis rRNA JOSÉ LUIS+prob e Ql (Unsp spec)Ordered By: Ness Dowd on 07-30-2024 Chlamydia DNA (JOSÉ LUIS) Negative Negative [facility] CBC W/Diff, Automatedon 07-05 Absolute Lymph 1.91 X10 3/uL Normal 0.83-4.51 [facility] Comment on above: Performed By: #### L 3890.6301, BTS, L100.0100, L7000.1800, M100.2200, L3890.6006, L7400.0353, L3890.6102, L509.8002 #### [facility] [address] [place], [address] Absolute Neut 6.4 X10 3/uL Normal 2.0-7.7 [facility] Comment on above: Performed By: #### L 3890.6301, BTS, L100.0100, L7000.1800, M100.2200, L3890.6006, L7400.0353, L3890.6102, L509.8002 #### [facility] [address] [place], [address] Basophils/100 WBC (Bld) 0.4 % Normal 0-[address] [facility] Comment on above: Performed By: #### L 3890.6301, BTS, L100.0100, L7000.1800, M100.2200, L3890.6006, L7400.0353, L3890.6102, L509.8002 #### [facility] [address] [place], [address] Eosinophils/100 WBC (Bld) 1.0 % Normal 0-5 [facility] Comment on above: Performed By: #### L 3890.6301, BTS, L100.0100, L7000.1800, M100.2200, L3890.6006, L7400.0353, L3890.6102, L509.8002 #### [facility] [address] [place], [address] Erythrocyte distribution width (RBC) [Ratio] 12.0 % Normal 11.6-14.6 [facility] Comment on above: Performed By: #### L 3890.6301, BTS, L100.0100, L7000.1800, M100.2200, L3890.6006, L7400.0353, L3890.6102, L509.8002 #### [facility] [address] [place], [address] Hematocrit (Bld) [Volume fraction] 38.9 % Normal 37-47 [facility] Comment on above: Performed By: #### L 3890.6301, BTS, L100.0100, L7000.1800, M100.2200, L3890.6006, L7400.0353, L3890.6102, L509.8002 #### [facility] [address] [place], [address] Hemoglobin (Bld) [Mass/Vol] 13.4 g/dL Normal 12.0-15.0 [facility] Comment on above: Performed By: #### L 3890.6301, BTS, L100.0100, L7000.1800, M100.2200, L3890.6006, L7400.0353, L3890.6102, L509.8002 #### [facility] [address] [place], [address] IG% 0.200 Normal 0.0-0.9 [facility] Comment on above: Result Comment: IG% - Immature Granulocytes (promyelocytes, myelocytes and metamyelocytes) > 1% indicates that a LEFT SHIFT is Present. Performed By: #### L 3890.6301, BTS, L100.0100, L7000.1800, M100.2200, L3890.6006, L7400.0353, L3890.6102, L509.8002 #### [facility] [address] [place], [address] Lymphocytes/100 WBC (Bld) 21.3 % Normal 19-41 [facility] Comment on above: Performed By: #### L 3890.6301, BTS, L100.0100, L7000.1800, M100.2200, L3890.6006, L7400.0353, L3890.6102, L509.8002 #### [facility] [address] [place], [address] MCH (RBC) [Entitic mass] 31.8 pg Normal 27.0-32.0 [facility] Comment on above: Performed By: #### L 3890.6301, BTS, L100.0100, L7000.1800, M100.2200, L3890.6006, L7400.0353, L3890.6102, L509.8002 #### [facility] [address] [place], [address] MCHC (RBC) [Mass/Vol] 34.4 g/dL Normal 32-36 [facility] Comment on above: Performed By: #### L 3890.6301, BTS, L100.0100, L7000.1800, M100.2200, L3890.6006, L7400.0353, L3890.6102, L509.8002 #### [facility] [address] [place], [address] MCV (RBC) [Entitic vol] 92.2 fL Normal 81-[address] [facility] Comment on above: Performed By: #### L 3890.6301, BTS, L100.0100, L7000.1800, M100.2200, L3890.6006, L7400.0353, L3890.6102, L509.8002 #### [facility] [address] [place], [address] Monocytes/100 WBC (Bld) 5.0 % Normal 0-[address] [facility] Comment on above: Performed By: #### L 3890.6301, BTS, L100.0100, L7000.1800, M100.2200, L3890.6006, L7400.0353, L3890.6102, L509.8002 #### [facility] [address] [place], [address] Neutrophils/100 WBC (Bld) 72.1 % High 47-70 [facility] Comment on above: Performed By: #### L 3890.6301, BTS, L100.0100, L7000.1800, M100.2200, L3890.6006, L7400.0353, L3890.6102, L509.8002 #### [facility] [address] [place], [address] Nucleated RBC (Bld) [#/Vol] 0 10*3/uL Normal 0-5 [facility] Comment on above: Performed By: #### L 3890.6301, BTS, L100.0100, L7000.1800, M100.2200, L3890.6006, L7400.0353, L3890.6102, L509.8002 #### [facility] [address] [place], [address] Platelet mean volume (Bld) [Entitic vol] 11.7 fL Normal 6.2-12.0 [facility] Comment on above: Performed By: #### L 3890.6301, BTS, L100.0100, L7000.1800, M100.2200, L3890.6006, L7400.0353, L3890.6102, L509.8002 #### [facility] [address] [place], [address] Platelets (Bld) [#/Vol] 199 10*3/uL Normal 150-450 [facility] Comment on above: Performed By: #### L 3890.6301, BTS, L100.0100, L7000.1800, M100.2200, L3890.6006, L7400.0353, L3890.6102, L509.8002 #### [facility] [address] [place], [address] RBC (Bld) [#/Vol] 4.22 10*6/uL Normal 4.2-5.[address] [facility] Comment on above: Performed By: #### L 3890.6301, BTS, L100.0100, L7000.1800, M100.2200, L3890.6006, L7400.0353, L3890.6102, L509.8002 #### [facility] [address] [place], [address] RDW SD 40.5 fl Normal 35.1-43.9 [facility] Comment on above: Performed By: #### L 3890.6301, BTS, L100.0100, L7000.1800, M100.2200, L3890.6006, L7400.0353, L3890.6102, L509.8002 #### [facility] [address] [place], [address] WBC (Bld) [#/Vol] 9.0 10*3/uL Normal 4.4-11.0 [facility] Comment on above: Performed By: #### L 3890.6301, BTS, L100.0100, L7000.1800, M100.2200, L3890.6006, L7400.0353, L3890.6102, L509.8002 #### [facility] [place], [address] Cervical or vagninal specime n microscopic examination by cytology stain (reported asOrdered By: Ness Dowd on 07-30-2024 Cytology report Cyto stain Doc (Cvx/Vag) Comment . [facility] Comment on above: The Pap smear is a s creening test designed to aid in thedetection of premalignant and malignant conditions of theuterine cervix. It is not a diagnostic procedure andshould not be used as the sole means of detecting cervicalcancer. Both false-positive and false-negative reports dooccur. Chlamydia trachomatis rRNA d etection by probe and target amplification methodOrdered By: Ness Dowd on 07-30-2024 C. trachomatis rRNA JOSÉ LUIS+probe Ql (Unsp spec) Negative Negative [facility] Bolt Sawyer Cyto stain Nom (C vx/Vag) [ID]Ordered By: Ness Dowd on 07-30-2024 Pap Smear Performed By Comment . [facility] Comment on above: Vicki Collins, Cytotec hnologist (ASCP) Cytology report Cyto stain D oc (Cvx/Vag)Ordered By: Ness Dowd on 07-30-2024 Thin Prep Pap Smear Comment . [facility] Comment on above: The Pap smear is a s creening test designed to aid in thedetection of premalignant and malignant conditions of theuterine cervix. It is not a diagnostic procedure andshould not be used as the sole means of detecting cervicalcancer. Both false-positive and false-negative reports dooccur. Eosinophil percentageOrdered By: Ness Dowd on 07-30-2024 Eosinophils/100 WBC (Bld) 1.0 % 0-5 [facility] Erythrocyte distribution wid th ratioOrdered By: Ness Dowd on 07-30-2024 Erythrocyte distribution width (RBC) [Ratio] 12.0 % 11.6-14.6 [facility] Erythrocyte distribution wid th standard deviationOrdered By: Ness Dowd on 07-30-2024 Erythrocyte distribution width (RBC) [Entitic vol] 40.5 fL 35.1-43.9 [facility] Erythrocyte distribution width (RBC) [Ratio] 40.5 fl 35.1-43.9 [facility] HBV surface Ag Ql (S)Ordered By: Ness Dowd on 07-30-2024 Hepatitis B Surface Antigen Non-Reactive Nonreactive [facility] Comment on above: Reactive: Presumptiv e evidence of HBV. Repeatedly reactive samples must be confirmed using a neutralization test ([facility] H[facility])Non-Reactive: HBsAg not detected; does not exclude the possibility of exposure to HBV Hematocrit Auto (Bld) [Volum e fraction]Ordered By: Ness Dwod on 07-30-2024 Hematocrit (Bld) [Volume fraction] 38.9 % 37-47 [facility] Hemoglobin measurementOrdere d By: Ness Dowd on 07-30-2024 Hemoglobin (Bld) [Mass/Vol] 13.4 g/dL 12.0-15.0 [facility] Hepatitis C antibodyOrdered By: Ness Dowd on 07-30-2024 Hepatitis C Antibody Non-Reactive Nonreactive [facility] Comment on above: Reactive: Presumptiv e evidence of antibodies to HCV. Follow CDC recommendations for supplemental testing.Non-Reactive: Antibodies to HCV were not detected; does not exclude the possibility of exposure to HCVReactive Results are presumptive evidence of antibodies to HCV. Follow CDC recommendations for supplemental testing.Order confirmation testing: HCV Quant by PCR testing - HCVPCR #[id number] Non Reactive: < 0.8 Equivocal: >/= 0.8 to < 1.0 Reactive: >/= 1.0The CDC requires that a reactive/equivocal HCV antibody result be sent out for confirmation. HCV Quant by PCR testing. Image-guided ThinPrep PapOrd ered By: Ness Dowd on 07-30-2024 Pap Smear Note Comment . [facility] Comment on above: This liquid based Th inPrep(R) pap test was screened withthe use of an image guided system. Image-guided liquid-based Pa pOrdered By: Ness Dowd on 07-30-2024 Pap Smear Diagnosis Comment . [facility] Comment on above: NEGATIVE FOR INTRAEP ITHELIAL LESION OR MALIGNANCY. Image-guided liquid-based ce rvical Pap w high-risk HPV+reflex to HPV 16+18Ordered By: Ness Dowd on 07-30-2024 Human Papillomavirus Screen Comment . [facility] Comment on above: The HPV DNA reflex c riteria were not met with this specimenresult therefore, no HPV testing was performed.Performed at: [address], [place], [place] [id number] Director: Francia Armando MD, Phone: [phone] Immature granulocytes/100 WB C Auto (Bld)Ordered By: Ness Dowd on 07-30-2024 Immature granulocytes/100 WBC (Bld) 0.200 % 0.0-0.9 [facility] Comment on above: IG% - Immature Granu locytes (promyelocytes, myelocytes and metamyelocytes) > 1% indicates that a LEFT SHIFT is Present. L3890.6006on 07-30-2024 HIV Non-Reactive Normal Nonreactive [facility] Comment on above: Result Comment: Non- Reactive Reactive Repeatedly reactive samples must be confirmed according to CDC recommended confirmatory algorithms. The subresults for either HIVAG or AHIV can be used as an aid in the selection of the confirmation algorithm for reactive samples. Send out specimens with Reactive results to [facility] for confirmation. Order the HIV antibody detection and differentiation: lc#[id number] Performed By: #### L 3890.6301, BTS, L100.0100, L7000.1800, M100.2200, L3890.6006, L7400.0353, L3890.6102, L509.8002 #### [facility] [address] [place], [place], [address] L3890.6102on 07-30-2024 HEP B Surf Ag [facility] Comment on above: Result Comment: Reac tive: Presumptive evidence of HBV. Repeatedly reactive samples must be confirmed using a neutralization test ([facility] HBsAg Confirmatory Test) Non-Reactive: HBsAg not detected; does not exclude the possibility of exposure to HBV Performed By: #### L 3890.6301, BTS, L100.0100, L7000.1800, M100.2200, L3890.6006, L7400.0353, L3890.6102, L509.8002 #### [facility] [address] [place], [place], [address] L3890.6301on 07-30-2024 Hepatitis C Ab Non-Reactive Normal Nonreactive [facility] Comment on above: Result Comment: Reac tive: Presumptive evidence of antibodies to HCV. Follow CDC recommendations for supplemental testing. Non-Reactive: Antibodies to HCV were not detected; does not exclude the possibility of exposure to HCV Reactive Results are presumptive evidence of antibodies to HCV. Follow CDC recommendations for supplemental testing. Order confirmation testing: HCV Quant by PCR testing - HCVPCR #[id number] Non Reactive: < 0.8 Equivocal: >/= 0.8 to < 1.0 Reactive: >/= 1.0 The CDC requires that a reactive/equivocal HCV antibody result be sent out for confirmation. HCV Quant by PCR testing. Performed By: #### L 3890.6301, BTS, L100.0100, L7000.1800, M100.2200, L3890.6006, L7400.0353, L3890.6102, L509.8002 #### [facility] [address] [place], [place], [id number] L509.8002on 07-30-2024 Syphilis Abs Non-Reactive Normal Nonreactive [facility] Comment on above: Performed By: #### L 3890.6301, BTS, L100.0100, L7000.1800, M100.2200, L3890.6006, L7400.0353, L3890.6102, L509.8002 #### [facility] [address] [place], [place], [address] Laboratory - CytologyOrdered By: Ness Dowd on 07-30-2024 Bolt Sawyer Cyto stain Nom (Cvx/Vag) [ID] Comment . [facility] Comment on above: Vicki Collins, Cytotec hnologist (ASCP) Laboratory - Microbiology an d Antimicrobial susceptibilityOrdered By: Ness Dowd on 07-30-2024 HBV surface Ag Ql (S) Non-Reactive Nonreactive [facility] Comment on above: Reactive: Presumptiv e evidence of HBV. Repeatedly reactive samples must be confirmed using a neutralization test ([facility] HBsAg Confirmatory Test)Non-Reactive: HBsAg not detected; does not exclude the possibility of exposure to HBV Laboratory - Miscellaneous t estsOrdered By: Ness Dowd on 07-30-2024 Service comment (Unsp spec) [Interp] . . [facility] Lymphocytes Auto (Unsp spec) [#/Vol]Ordered By: Ness Dowd on 07-30-2024 Lymphocytes (Bld) [#/Vol] 1.91 10*3/uL 0.83-4.5 1 [facility] Lymphocytes/100 WBC Auto (Un sp spec)Ordered By: Ness Dowd on 07-30-2024 Lymphocytes/100 WBC (Bld) 21.3 % 19-41 [facility] MCV (mean corpuscular volume ) determinationOrdered By: Ness Dowd on 07-30-2024 MCV (RBC) [Entitic vol] 92.2 fL 81-[address] [facility] Mean corpuscular hemoglobin (MCH) determinationOrdered By: Ness Dowd on 07-30-2024 MCH (RBC) [Entitic mass] 31.8 pg 27.0-32.0 [facility] Mean corpuscular hemoglobin concentration (MCHC) determinationOrdered By: Ness Dowd on 07-30-2024 MCHC (RBC) [Mass/Vol] 34.4 g/dL 32-36 [facility] Mean platelet volume determi nationOrdered By: Ness Dowd on 07-30-2024 Platelet mean volume (Bld) [Entitic vol] 11.7 fL 6.2-12.0 [facility] Monocyte percentageOrdered B y: Ness Dowd on 07-30-2024 Monocytes/100 WBC (Bld) 5.0 % 0-[address] [facility] Neisseria gonorrhoeae nuclei c acid detection by amplified probe techniqueOrdered By: Ness Dowd on 07-30-2024 N. gonorrhoeae DNA JOSÉ LUIS+probe Ql (Unsp spec) Negative Negative [facility] Comment on above: Performed at: =[address] [id number] Director: Francia Armando MD, Phone: [phone] Neutrophil percentageOrdered By: Ness Dowd on 07-30-2024 Neutrophils/100 WBC (Bld) 72.1 % High 47-70 [facility] No Panel InformationOrdered By: Ness Dowd on 07-30-2024 Pap Smear Specimen Adequacy Comment . [facility] Comment on above: Satisfactory for teodoro luation. Endocervical and/or squamous metaplasticcells (endocervical component) are present. HIV (1&2) Antibody Non-Reactive Nonreactive [facility] Comment on above: Non-ReactiveReactive Repeatedly reactive samples must be confirmed according to CDC recommended confirmatory algorithms. The subresults for either HIVAG or AHIV can be used as an aid in the selection of the confirmation algorithm for reactive samples.Send out specimens with Reactive results to [facility] for confirmation.Order the HIV antibody detection and differentiation: #[id number] Syphilis Total Antibody Non-Reactive Nonreactiv e [facility] Nucleated red blood cell per centageOrdered By: Ness Dowd on 07-30-2024 Nucleated RBC/100 WBC (Bld) [Ratio] 0 % 0-5 [facility] Apartment Community Assistant Manager Office Visit Reporton 07-30-2024 Apartment Community Assistant Manager Office Visit Report [facility] [address], [address] [place] [address] OFFICE VISIT Date of Service: 07/30/24 MR#: [id number] Acct: [id number] Name: JASWINDER WARE Rep #: [id number] : 1995 Provider: MELO Aguilera ams Age/Sex: 29/F Location[place] [facility] [place] Status: Signed Intake Vital Signs 07/30/24 08:52 Height 5 ft 3 in Weight: 138 lb 4 oz BMI 24.5 BP 132/83 H Intake Visit Reasons: NOB LMP 05/24 Kier Drier Required: No Is patient in pain?: No Feel stressed/tense/nerv ous/anxious/difficu lty sleeping: not at all Allergies No Known Allergies Allergy (Verified 07/30/24 08:55) Medications ???Medication ???Instructions ???Recorded ???Confirmed ???Type Cholecalciferol (Vitamin D3) 5,000 mg PO DAILY vitamin 06/16/20 08/01/20 History [Vitamin D3] multivit-min no.71-iron fum 28 cap PO 07/17/24 History mg-folate no.1 1 mg-dha 300 mg capsule (PNV-Monette) ondansetron 4 mg disintegrating 4 mg PO Q6H PRN nausea and 5 07/30/24 Rx tablet vomiting #90 tabs Last Menstrual Period: 05/24/24 Zika: Zika virus screening: Negative : Yes PFSH PFSH Family History Sister Mango [place] malformation Social History adopted: No household members: spouse and children number of children: 2 service: No current occupational status: unemployed current occupation: [employer] pets and animals: Yes pets and animals: dog(s), horse(s) and other details: Hens history of recent travel: No sexually active: Yes Smoking Status: Never smoker alcohol intake: never substance use type: does not use well-balanced diet: daily or most days caffeine: No eating out: rarely or never during the past year weight has: remained stable what type of physical activity do you participate in: none cheryl/bahai: Uatsdin seatbelt use: sometimes do you feel safe at home: Yes 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 Date Name GA/Weeks Outcome Route Bth Weight Gen Labor Lgth Anesthesia Del Locatn Provider FOB 03/16/17 Willy 40 live - full term 7lbs 4oz Male epidural [facility] D jacobo Lees Yousif 06/17/20 Sally 40 live - full term 7#6oz Male epidural [facility] ANGIE Delivery Date: 03/16/17 Last Updated by: Kristen Zhong No issues during or delivery HPI NOB LMP 05/24 Details: JASWINDER WARE is a 29 year old who presents for New OB visit. OB Visit LAURA Calculator Estimated Delivery Date Method Current WG Current Estimate 02/28/25 LMP (Certain) 9w 4d Other Estimates 02/25/25 Ultrasound #1 10w 0d Comments: HIV: Urine Culture: Sequential Screen: NIPT Screen: Estimated Due Date: 02/28/25 Expected Delivery Route/Plan Labor Preferences- CB/BF classes: [] labor support person: [] labor intervention preferences: [] pain management options preferred: [] cut cord/dad catch: [] : [] PP control planned: [] discussed possible routes of delivery and associated risks: [] special requests: [] Specific Issue/Plans Covid status: [] Flu vaccine: [] Tdap vaccine: [] Rhogam: [] LARC form signed: [] Problem list reviewed and updated with the most current plan of care details and appropriate orders placed. Relevant counseling for the gestational age provided. Continue routine care and follow up unless otherwise noted in visit notes/problem list details Initial Weight: Not Recorded Date -???-???-???-???-?? ?-???-???-???-???-? ??-???-???- EGA Weight BP Urine Prot -???-???-???-???-?? ?-???-???-???-???-? ??-???-???- Glucose FHR FuHt Pres Dilation -???-???-???-???-?? ?-???-???-???-???-? ??-???-???- Effaced St Visit Note 07/30/24 -???-???-???-???-?? ?-???-???-???-???-? ??-???-???- 9w 4d 138 lb 4 oz 132/83 -???-???-???-???-?? ?-???-???-???-???-? ??-???-???- 172 -???-???-???-???-?? ?-???-???-???-???-? ??-???-???- KW- CRL cons with dates. Declines NIPT Menstrual History Last Menstrual Period: 05/24/24 Reported LMP: definite Normal amount/duration: Yes Frequency in days: 28-30 On hormonal BC at conception: No hCG+: 06/28/24 Antepartum Record Genetic Screening: Congenital Heart Defect: Other, Neural Tube Defect: Other, Hemoglobinopathy Or Carrier: Other, Cystic Fibrosis: Other, Chromosome Abnormality: Other, Fabrice-Sachs: Other, Hemophilia: Other, Intellectual Disability/Autism: Other, Recurrent Loss/Stillbirth: Other, Other Structural Itzel (more content not included)... Normal [facility] Platelet countOrdered By: Branden Dowd on 07-30-2024 Platelets (Bld) [#/Vol] 199 10*3/uL 150-450 [facility] RBC Auto (Bld) [#/Vol]Ordere d By: Ness Dowd on 07-30-2024 RBC (Bld) [#/Vol] 4.22 10*6/uL 4.2-5.[address] [facility] Service comment (Unsp spec) [Interp]Ordered By: Ness Dowd on 07-30-2024 Pap Smear Comment (3) . . [facility] Type AND Screenon 07-30-2024 Ab SCREEN GEL Negative Normal [facility] Comment on above: Order Comment: PN Performed By: #### L 3890.6301, BTS, L100.0100, L7000.1800, M100.2200, L3890.6006, L7400.0353, L3890.6102, L509.8002 #### [facility] [address] [place], [address] Urine cultureOrdered By: Jason Dowd on 07-30-2024 Bacteria identified Cx Nom (U) Positive Abnormal [facility] White blood cell (WBC) count Ordered By: Ness Dowd on 07-30-2024 WBC (Bld) [#/Vol] 9.0 10*3/uL 4.4-11.0 [facility] BB ANTIBODY SCREENon 020 ANTIBODY SCR Negative Normal negative [facility] Comment on above: Performed By: #### 2 [id number] #### [facility],[address] [place] [address] CBC (NO DIFF)on 03-29-2020 CBC (NO DIFF) Normal [facility] Comment on above: Result Comment: CBC( WITHOUT DIFFERENTIAL) Performed By: #### 2 90054 #### [facility],[address] [place] [address] Erythrocyte distribution width (RBC) [Ratio] 12.7 % Normal 12.0 - 15.6 [facility] Comment on above: Performed By: #### 2 87932 #### [facility],[address] [place] [address] Hematocrit (Bld) [Volume fraction] 33.1 % Low 34.0 - 46.0 [facility] Comment on above: Performed By: #### 2 83086 #### [facility],[address] [place] [address] Hemoglobin (Bld) [Mass/Vol] 12.0 g/dL Normal 12.0 - 16.0 [facility] Comment on above: Performed By: #### 2 11193 #### [facility],[address] [place] [address]33 MCH (RBC) [Entitic mass] 33 pg Normal 27 - 33 [facility] Comment on above: Performed By: #### 2 85118 #### [facility],[address] [place] [address]146 MCHC (RBC) [Mass/Vol] 36 X10 3 Normal 32 - 36 [facility] Comment on above: Performed By: #### 2 12324 #### [facility],[address] [place] [address] MCV (RBC) [Entitic vol] 91 fL Normal 80 - 99 [facility] Comment on above: Performed By: #### 2 55387 #### [facility],[address] [place] [address] Platelet mean volume (Bld) [Entitic vol] 9.8 fL Normal 6.6 - 10.5 [facility] Comment on above: Performed By: #### 2 85740 #### [facility],[address] [place] [address] Platelets (Bld) [#/Vol] 190 x10EE3/UL Normal 150 - 450 [facility] Comment on above: Performed By: #### 2 24346 #### [facility],[address] [place] [address]37 RBC (Bld) [#/Vol] 3.63 x 10EE6/UL Low 4.10 - 5.30 [facility] Comment on above: Performed By: #### 2 85020 #### [facility],[address] [place] [address]190 WBC (Bld) [#/Vol] 9.1 x 10EE3/UL Normal 4.5 - 10.8 [facility] Comment on above: Performed By: #### 2 68881 #### [facility],[address] [place] [address]9577 GLUCOSE CHALLENGE 50GM 1 [facility] 03-29-2020 Glucose [Mass/Vol] 118 mg/dL Normal 70 - 140 [facility] Comment on above: Performed By: #### 2 68874 #### [facility],[address] [place] [address]65 Glucose [Mass/Vol] Normal [facility] Comment on above: Result Comment: GLUC OSE CHALLENGE 50 GMS 1 HOUR Performed By: #### 2 53267 #### [facility],[address] [place] [address] Vital Signs Date Time Vital Sign Value Performing Clinician Kirti rai 02-04-2025 11:18-0400 Body height 160.[address] Faby Griggs DO Work Phone: [facility] 02-04-2025 11:18-0400 Body mass index (BMI) [Ratio] 29 kg/m2 Dr. Faby Griggs DO Work Phone: [facility] 02-04-2025 11:18-0400 Body weight 74.[address] Faby Griggs DO Work Phone: [facility] 02-04-2025 11:18-0400 Diastolic blood pressure 84 mm[Hg] Dr. Faby Griggs DO Work Phone: [facility] 02-04-2025 11:18-0400 Systolic blood pressure 133 mm[Hg] Dr. Faby Griggs DO Work Phone: [facility] 01-20-2025 10:31-0400 Body height 160.[address] Faby Griggs DO Work Phone: [facility] 01-20-2025 10:31-0400 Body mass index (BMI) [Ratio] 28.5 kg/m2 Dr. Faby Griggs DO Work Phone: [facility] 01-20-2025 10:31-0400 Body weight 73.[address] Faby Griggs DO Work Phone: [facility] 01-20-2025 10:31-0400 Diastolic blood pressure 81 mm[Hg] Dr. Faby Griggs DO Work Phone: [facility] 01-20-2025 10:31-0400 Systolic blood pressure 128 mm[Hg] Dr. Faby Griggs DO Work Phone: [facility] 01-05-2025 16:08-0400 Body height 160.[address] Faby Griggs DO Work Phone: [facility] 01-05-2025 16:08-0400 Body mass index (BMI) [Ratio] 27.8 kg/m2 Dr. Faby Griggs DO Work Phone: [facility] 01-05-2025 16:08-0400 Body weight 71.[address] Faby Griggs DO Work Phone: [facility] 01-05-2025 16:08-0400 Diastolic blood pressure 84 mm[Hg] Dr. Faby Griggs DO Work Phone: [facility] 01-05-2025 16:08-0400 Systolic blood pressure 136 mm[Hg] Dr. Faby Griggs DO Work Phone: [facility] 12-23-2024 08:53-0400 Body height 160.[address] Faby Griggs DO Work Phone: [facility] 12-23-2024 08:45-0400 Body mass index (BMI) [Ratio] 27.8 kg/m2 Dr. Faby Griggs DO Work Phone: [facility] 12-23-2024 08:45-0400 Body weight 71.[address] Faby Griggs DO Work Phone: [facility] 12-23-2024 08:45-0400 Diastolic blood pressure 68 mm[Hg] Dr. Faby Griggs DO Work Phone: [facility] 12-23-2024 08:45-0400 Systolic blood pressure 112 mm[Hg] Dr. Faby Griggs DO Work Phone: [facility] 12-08-2024 13:30-0400 Body height 160.[address] Faby Griggs DO Work Phone: [facility] 12-08-2024 13:30-0400 Body mass index (BMI) [Ratio] 27.5 kg/m2 Dr. Faby Griggs DO Work Phone: [facility] 12-08-2024 13:30-0400 Body weight 70.[address] aFby Griggs DO Work Phone: [facility] 12-08-2024 13:30-0400 Diastolic blood pressure 76 mm[Hg] Dr. Faby Griggs DO Work Phone: [facility] 12-08-2024 13:30-0400 Systolic blood pressure 124 mm[Hg] Dr. Faby Griggs DO Work Phone: [facility] 11-18-2024 08:13-0400 Body height 160.[address] Faby Griggs DO Work Phone: [facility] 11-18-2024 08:08-0400 Body mass index (BMI) [Ratio] 26.8 kg/m2 Dr. Faby Griggs DO Work Phone: [facility] 11-18-2024 08:08-0400 Body weight 68.[address] Faby Griggs DO Work Phone: [facility] 11-18-2024 08:08-0400 Diastolic blood pressure 73 mm[Hg] Dr. Faby Griggs DO Work Phone: [facility] 11-18-2024 08:08-0400 Systolic blood pressure 119 mm[Hg] Dr. Faby Griggs DO Work Phone: [facility] 10-19-2024 10:51-0400 Body height 160.[address] Faby Griggs DO Work Phone: [facility] 10-19-2024 10:49-0400 Body mass index (BMI) [Ratio] 26.1 kg/m2 Dr. Faby Griggs DO Work Phone: [facility] 10-19-2024 10:49-0400 Body weight 66.[address] Faby Griggs DO Work Phone: [facility] 10-19-2024 10:49-0400 Diastolic blood pressure 72 mm[Hg] Dr. Faby Griggs DO Work Phone: [facility] 10-19-2024 10:49-0400 Systolic blood pressure 114 mm[Hg] Dr. Faby Griggs DO Work Phone: [facility] 09-23-2024 11:33-0400 Body height 160.[address] Faby Griggs DO Work Phone: [facility] 09-23-2024 11:28-0400 Body mass index (BMI) [Ratio] 25.9 kg/m2 Dr. Faby Griggs DO Work Phone: [facility] 09-23-2024 11:28-0400 Body weight 66.[address] Faby Griggs DO Work Phone: [facility] 09-23-2024 11:28-0400 Diastolic blood pressure 79 mm[Hg] Dr. Faby Griggs DO Work Phone: [facility] 09-23-2024 11:28-0400 Systolic blood pressure 114 mm[Hg] Dr. Faby Griggs DO Work Phone: [facility] 08-26-2024 08:52-0400 Body mass index (BMI) [Ratio] 25 kg/m2 Dr. Faby Griggs DO Work Phone: [facility] 08-26-2024 08:52-0400 Body weight 64.[address] Faby Griggs DO Work Phone: [facility] 08-26-2024 08:52-0400 Diastolic blood pressure 84 mm[Hg] Dr. Faby Griggs DO Work Phone: [facility] 08-26-2024 08:52-0400 Systolic blood pressure 134 mm[Hg] Dr. Faby Griggs DO Work Phone: [facility] 07-30-2024 08:52-0500 Body height 160.[address] Faby Griggs DO Work Phone: [facility] 07-30-2024 08:52-0500 Body mass index (BMI) [Ratio] 24.5 kg/m2 Dr. Faby Griggs DO Work Phone: [facility] 07-30-2024 08:52-0500 Body weight 62.[address] Faby Griggs DO Work Phone: [facility] 07-30-2024 08:52-0500 Diastolic blood pressure 83 mm[Hg] Dr. Faby Griggs DO Work Phone: [facility] 07-30-2024 08:52-0500 Systolic blood pressure 132 mm[Hg] Dr. Faby Griggs DO Work Phone: [facility] Encounters Encounter Date Encounter Type Care Provider Facility Start: 02-04-2025 End: 02-04-[address] Faby Griggs DO Work Phone: -[facility] Start: 02-04-2025 End: 02-04-2025 Patient encounter procedure Ness Dowd CNM -[facility] Work Phone: Start: 01-20-2025 End: 01-20-[address] Mari Rockwell DO -[facility] Work Phone: Start: 01-20-2025 End: 01-20-[address] Faby Griggs DO Work Phone: -[facility] Start: 01-05-2025 End: 01-05-[address] Mari Rockwell DO -[facility] Work Phone: Start: 01-05-2025 End: 01-05-[address] Faby Griggs DO Work Phone: [facility] Start: 12-23-2024 End: 12-23-2024 Patient encounter procedure Ness Dowd CNM -[facility] @ Start: 12-23-2024 End: 12-23-[address] Faby Griggs DO Work Phone: -[facility] @ Start: 12-08-2024 End: 12-08-2024 Patient encounter procedure Randi THAKKAR -[facility] Work Phone: Start: 12-08-2024 End: 12-08-[address] Faby Griggs DO Work Phone: [facility] Start: 12-08-2024 End: 12-08-2024 ambulatory Faby Griggs Facility:[facility] Start: 11-18-2024 End: 11-18-2024 Patient encounter procedure Ness Dowd CNM -[facility] @ Start: 11-18-2024 End: 11-18-[address] Faby Griggs DO Work Phone: [facility] Work Phone: Start: 10-19-2024 End: 10-19-[address] Mari Rockwell DO -[facility] Work Phone: Start: 10-19-2024 End: 10-19-[address] Faby Griggs DO Work Phone: [facility] Work Phone: Start: 10-12-2024 End: 10-12-[address] Faby Griggs DO Work Phone: [facility] Work Phone: Start: 10-12-2024 End: 10-12-[address] Mari Rockwell DO -[facility] Work Phone: Start: 10-12-2024 End: 10-12-2024 ambulatory Faby Griggs Facility:[facility] Start: 09-23-2024 End: 09-23-2024 Patient encounter procedure Ness Dowd CNM -[facility] Start: 09-23-2024 End: 09-23-2024 ambulatory Ness Dowd Facility:[facility] Start: 08-26-2024 End: 08-26-[address] Mari Rockwell DO -[facility] Work Phone: Start: 08-26-2024 End: 08-26-2024 ambulatory Faby Griggs Facility:[facility] Start: 07-30-2024 End: 07-30-2024 Patient encounter procedure Ness Dowd CNM -[facility] Work Phone: Start: 07-30-2024 End: 07-30-[address] Faby Griggs DO Work Phone: [facility] Work Phone: Start: 07-30-2024 End: 07-30-2024 ambulatory Ness Dowd Facility:[facility] Start: 03-29-2020 End: 03-29-2020 Patient encounter procedure AUBREY WARNER [facility] Procedures Date Procedure Procedure Detail Performing Clinician Start: 12-08-[address] Faby Griggs DO Work Phone: Comment on above: Antibody Result: Int erpretationNon-Reactive: Non- ImmuneReactive: ImmuneThe following results were obtained with the [employer] Rubella IgG assay. Results from assays of other manufacturers cannot be used interchangeably. Start: 12-08-2024 Serologic test for syphilis Dr. Faby Griggs DO Work Phone: Start: 10-12-2024 Ultrasonography in f irst trimester Dr. Faby Griggs DO Work Phone: Start: 07-30-2024 Liquid based cervica l cytology screening Dr. Faby Griggs DO Work Phone: Comment on above: NEGATIVE FOR INTRAEP ITHELIAL LESION OR MALIGNANCY. This liquid based Th inPrep(R) pap test was screened withthe use of an image guided system. The HPV DNA reflex c riteria were not met with this specimenresult therefore, no HPV testing was performed.Performed at: [address] [id number] Director: Francia Armando MD, Phone: [phone] Start: 07-30-[address] Faby Griggs DO Work Phone: Start: 07-30-2024 Hepatitis C antibody measurement Dr. Faby Griggs DO Work Phone: Comment on above: Reactive: Presumptiv e evidence of antibodies to HCV. Follow CDC recommendations for supplemental testing.Non-Reactive: Antibodies to HCV were not detected; does not exclude the possibility of exposure to HCVReactive Results are presumptive evidence of antibodies to HCV. Follow CDC recommendations for supplemental testing.Order confirmation testing: HCV Quant by PCR testing - HCVPCR #[id number] Non Reactive: < 0.8 Equivocal: >/= 0.8 to < 1.0 Reactive: >/= 1.0The CDC requires that a reactive/equivocal HCV antibody result be sent out for confirmation. HCV Quant by PCR testing. Plan of Treatment Date Care Activity Detail Author Start: 12-08-2024 CBC W Auto Different ial panel - Blood [facility] Start: 12-08-2024 Measurement of gluco se 2 hours after glucose challenge for glucose tolerance test [facility] Start: 12-08-2024 Rubella IgG measurement [facility] Start: 12-08-2024 Serologic test for syphilis [facility] Start: 12-08-2024 [facility] CBC W Auto Different ial panel - Blood [facility] Erythrocyte mean cor puscular volume determination [facility] Hematocrit [Volume F raction] of Blood [facility] Hemoglobin [Mass/volume] in Blood [facility] Leukocytes [#/volume] in Blood [facility] Mean corpuscular hem oglobin concentration determination [facility] Mean corpuscular hem oglobin determination [facility] Measurement of gluco se 2 hours after glucose challenge for glucose tolerance test [facility] Neutrophil count [facility] Neutrophil percent d ifferential count [facility] Platelets [#/volume] in Blood [facility] Red blood cell count [facility] Red cell distributio n width determination [facility] Serologic test for syphilis [facility] Streptococcus agalac tiae [Presence] in Unspecified specimen by Organism specific culture [facility] Payers Date Payer Category Payer Self-pay [id number] 2024 Self-pay 2024 Unknown [id number] 2024 Unknown unknown Unknown [id number] 2.16.8 [id number] Unknown [id number] 2.16.8 [id number] Unknown [id number] 2.16.8 [id number] Unknown [id number] 2.16.8 [id number] Unknown [id number] 2.16.8 [id number] Unknown [id number] 2.16.8 [id number] Unknown [id number] 2.16.8 [id number] Unknown [id number] 2.16.8 [id number] Unknown [id number] 2.16.8 [id number] Unknown [id number] 2.16.8 [id number] Unknown [id number] 2.16.8 [id number] Unknown [id number] 2.16.8 [id number] Social History Date Type Detail Facility Start: 07-17-2024 Tobacco smoking stat [facility] Never smoked tobacco (finding) [facility] Start: 08-12-2024 Sex Female (finding) [facility] Start: 1995 Sex Assigned At Female [facility] Clinical Notes 07-30-2024 to 02-04-2025 Note Date & Type Note Facility 02-04-2025 Progress note [facility] 01-20-2025 Progress note [facility] 01-05-2025 Progress note [facility] 01-05-2025 Progress note Note Date/Time January 05, 2025 4:37pm [facility] [address], [address] [place] [address] OFFICE VISIT Date of Service: 01/05/25 MR#: [id number] Acct: [id number] Name: JASWINDER WARE Rep #: [id number] : 1995 Provider: Dr. Tami Rockwell DO Age/Sex: 29/F [place] [facility] [place]: Signed Intake Vital Signs 12/08/24 13:30 12/23/24 08:53 01/05/25 16:08 Height 5 ft 3 in 5 ft 3 in 5 ft 3 in Weight: 157 lb BMI 27.8 BP 136/84 H Intake Visit Reasons: 32wk ob Kier Drier Required: No Is patient in pain?: No Allergies No Known Allergies Allergy (Verified 01/05/25 16:08) Medications ?Medication ?Instructions ?Recorded ?Confirmed ?Type Cholecalciferol (Vitamin D3) 5,000 mg PO DAILY vitamin 06/16/20 01/05/25 History [Vitamin D3] multivit-min no.71-iron fum 28 cap PO 07/17/24 5 History mg-folate no.1 1 mg-dha 300 mg capsule (PNV-Monette) ondansetron 4 mg disintegrating 4 mg PO Q6H PRN nausea and 07/30/24 01/05/25 Rx tablet vomiting #90 tabs Last Menstrual Period: 05/24/24 Zika: Zika virus screening: Negative : No PFSH PFSH Family History Sister Mango [place] malformation Social History adopted: No household members: spouse and children number of children: 2 current occupational status: unemployed current occupation: [employer] pets and animals: Yes pets and animals: dog(s), horse(s) and other details: Hens history of recent travel: No sexually active: Yes Smoking Status: Never smoker alcohol intake: never substance use type: does not use well-balanced diet: daily or most days caffeine: No eating out: rarely or never during the past year weight has: remained stable what type of physical activity do you participate in: none cheryl/bahai: Uatsdin seatbelt use: sometimes do you feel safe at home: Yes 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 Date Name GA/Weeks Outcome Route Bth Weight Infant Gen Labor Lgth Anesthesia Del Locatn Provider FOB 03/16/17 Willy 40 live - full term 7lbs 4oz Male epi dural [facility] Dr. Yoana Dodd 06/17/20 Sally 40 live - full term 7#6oz Male epidchetna mclaughlin [facility] ANGIE Delivery Date: 03/16/17 Last Updated by: Kristen Zhong No issues during or delivery HPI 32wk ob Details: JASWINDER WARE is a 29 year old who presents for routine OB visit. OB Visit LAURA Calculator Estimated Delivery Date Method Current WG Current Estimate 02/28/25 LMP (Certain) 32w 2d Other Estimates 02/25/25 Ultrasound #1 32w 5d Expected Delivery Route/Plan Labor Preferences- CB/BF classes: no labor support person: Yousif labor intervention preferences: [] pain management options preferred: epidural cut cord/dad catch: cord : yes but not usually successful PP control planned: discussed discussed possible routes of delivery and associated risks: [] special requests: [] Specific Issue/Plans Covid status: [] Flu vaccine: [] Tdap vaccine: declines Rhogam: given 12/08/24 LARC form signed: yes Problem list reviewed and updated with the most current plan of care details and appropriate orders placed. Relevant counseling for the gestational age provided. Continue routine care and follow up unless otherwise noted in visit notes/problem list details Initial Weight: Not Recorded Date -?-?-?-?-?-?-?-?-?-?-?-?- EGA Weight BP Urine Prot -?-?-?-?-?-?-?-?-?-?-?-?- Glucose FHR FuHt Pres Dilation -?-?-?-?-?-?-?-?-?-?-?-?- Effaced St Visit Note 07/30/24 -?-?-?-?-?-?-?-?-?-?-?-?- 9w 4d 138 lb 4 oz 132/83 -?-?-?-?-?-?-?-?-?-?-?-?- 172 -?-?-?-?-?-?-?-?-?-?-?-?- KW- CRL cons wit h dates. Declines NIPT 08/26/24 -?-?-?-?-?-?-?-?-?-?-?--?- 13w 3d 141 lb 2 oz 134/84 Nega tive -?-?-?-?-?-?-?-?-?-?-?-?- Negative 160 -?-?-?-?-?-?-?-?-?-?-?-?- JV- nausea impro ving. wants to start with hospital anatomy scan. fhx amie cub[place]. discussed might need mfm ultrasound if any abnormalities. declines genetic or AFP as discussed at last visit. 09/23/24 -?-?-?-?-?-?-?--?-?-?-?-?- 17w 3d 146 lb 8 oz 114/79 Nega tive -?-?-?-?-?-?-?-?-?-?-?-?- Negative 155 -?-?-?-?-?-?-?-?-?-?-?-?- KW- no vb/crampi ng. possible movement. KW- no vb/cramping. possible movement. US was ordered but not yet scheduled. she will call to get this done. 10/19/24 -?-?-?-?-?-?-?-?-?-?-?-?- 21w 1d 147 lb 8 oz 114/72 Nega tive -?-?-?-?-?-?-?-?-?-?-?-?- Negative 161 22 -?-?-?-?-?-?-?-?-?-?-?-?- JV- no lof, vagi nal bleeding, or cramping. normal anatomy scan. it's a girl!!! 11/18/24 -?-?-?-?-?-?-?-?-?-?-?-?- 25w 3d 151 lb 8 oz 119/73 -?-?-?-?-?-?-?-?-?-?-?-?- 145 25 -?-?-?-?-?-?-?-?-?-?-?-?- KW- no vb/lof/ct x. good fm. glucose given. 12/08/24 -?-?-?-?-?-?-?-?-?-?-?-?- 28w 2d 155 lb 8 oz 124/76 Nega tive -?-?-?-?-?-?-?-?-?-?-?-?- Negative 164 28 -?-?-?-?-?-?-?-?-?-?-?-?- MH-No Vb, LOF. G ood FM. Larc. 28 wk labs pending. Rhogam given. Declines tdap 12/23/24 -?-?-?-?-?-?-?-?-?-?-?-?- 30w 3d 157 lb 6 oz 112/68 Trac e -?-?-?-?-?-?-?-?-?-?-?-?- Negative 145 30 -?-?-?-?-?-?-?-?-?-?-?-?- KW- no vb/lof/ct x. good fm. started Iron supplement. no concerns 01/05/25 -?-?-?-?-?-?-?-?-?-?-?-?- 32w 2d 157 lb 136/84 Negative -?-?-?-?-?-?-?-?-?-?-?-?- Negative 150 33 -?-?-?-?-?-?-?-?-?-?-?-?- JV- no lof, vagi nal bleeding, or dec fm . bp is mildly elevated for her but within normal range. no headaches or visual changes. she states that this happened to her last . will watch closely. ACOG First Trimester First Trimester: Discussed Second Trimester Second Trimester: Signs and Symptoms of Labor, Selecting a care provider, Reproductive Life Planning & Contreception, Care Planning, Depression/Anxiety and Intimate Partner Violence; Discussed Tobacco Cessation Third Trimester Third Trimester: Pain Management Plans, Labor support person(s), Immediate Larc, Signs and Symptoms of Preeclampsia, Infant Feeding No , Badger Education, Family Medical Leave or Disability Forms and Intimate Partner Violence Results POC Urinalysis 2 Dip (Clinic) Office Urine Glucose Negative Last Edit by Kristen Zhong on 01/05/25 16: 18 Office Urine Protein Negative Last Edit by Kristen Zhong on 01/05/25 16: 18 Coding Level of Care Code OB Routine Diagnoses Supervision of high risk in third trimester O09.93 Trimester: third trimester 32 weeks gestation of Z3A.32 Weeks of gestation: 32 weeks Rh negative state in antepartum period O26.899; 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 Assessment and Plan Assessment and Plan (1) Supervision of high-risk : Status: Acute Qualifiers: Trimester: third trimester Qualified Code(s): O09.93 - Supervision of high risk , unspecified, third trimester Comment: PRR , LAURA 02/28/25, PC Sally Aguilera, Yousif (2) : Status: Acute Qualifiers: Weeks of gestation: 32 weeks Qualified Code(s): Z3A.32 - 32 weeks gestation of Comment: declined genetic & carrier testing (3) Rh negative state in antepartum period: Status: Acute Comment: O-, Rhogam @ 28 wks & PRN Bleeding, Given 12/08/24 (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 Anatomy scan normal. Declined genetic testing. Orders: Orders POC Urinalysis 2 Dip (Clinic) Today 01/05/25 [id number] <Electronically signed by Mari John DO> Date _ [facility] Signature: Date (if applicable) CC: ~ [facility] Work Phone: 1(962) 455-428407-23-2025 Progress [facility] [address] [place] [address], [address] [place] [address] OFFICE VISIT Date of Service: 12/23/24 MR#: [id number] Acct: [id number] Name: JASWINDER WARE Marlena Rep #: [id number] : 1995 Provider: MELO Dowd Age/Sex: 29/F Location: [facility] Status: Signed Intake Vital Signs 10/19/24 10:51 12/08/24 13:30 12/23/24 08:45 12/23/24 08:53 Height 5 ft 3 in 5 ft 3 in 5 ft 3 in 5 ft 3 in Weight: 157 lb 6 oz BMI 27.8 BP 112/68 Intake Visit Reasons: 30 wk ob Kier Drier Required: No Is patient in pain?: No Allergies No Known Allergies Allergy (Verified 12/23/24 08:45) Medications ?Medication ?Instructions ?Recorded ?Confirmed ?Type Cholecalciferol (Vitamin D3) 5,000 mg PO DAILY vitamin 06/16/20 12/23/24 History [Vitamin D3] multivit-min no.71-iron fum 28 cap PO 07/17/24 5 History mg-folate no.1 1 mg-dha 300 mg capsule (PNV-Monette) ondansetron 4 mg disintegrating 4 mg PO Q6H PRN nausea and 07/30/24 12/23/24 Rx tablet vomiting #90 tabs Last Menstrual Period: 05/24/24 : Yes PFSH PFSH Family History Sister Mango [place] malformation Social History adopted: No household members: spouse and children number of children: 2 current occupational status: unemployed current occupation: [employer] pets and animals: Yes pets and animals: dog(s), horse(s) and other details: Hens history of recent travel: No sexually active: Yes Smoking Status: Never smoker alcohol intake: never substance use type: does not use well-balanced diet: daily or most days caffeine: No eating out: rarely or never during the past year weight has: remained stable what type of physical activity do you participate in: none cheryl/bahai: Uatsdin seatbelt use: sometimes do you feel safe at home: Yes 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 Date Name GA/Weeks Outcome Route Bth Weight Gen Labor Lgth Anesthesia Del Locatn Provider FOB 03/16/17 Willy 40 live - full term 7lbs 4oz Male epi dural [facility] Dr. Yoana Dodd 06/17/20 Sally 40 live - full term 7#6oz Male epidu ral [facility] ANGIE Delivery Date: 03/16/17 Last Updated by: Kristen Zhong No issues during or delivery HPI 30 wk ob Details: JASWINDER WARE is a 29 year old who presents for routine OB visit. OB Visit LAURA Calculator Estimated Delivery Date Method Current WG Current Estimate 02/28/25 LMP (Certain) 30w 3d Other Estimates 02/25/25 Ultrasound #1 30w 6d Expected Delivery Route/Plan Labor Preferences- CB/BF classes: no labor support person: Yousif labor intervention preferences: [] pain management options preferred: epidural cut cord/dad catch: cord : yes but not usually successful PP control planned: discussed discussed possible routes of delivery and associated risks: [] special requests: [] Specific Issue/Plans Covid status: [] Flu vaccine: [] Tdap vaccine: declines Rhogam: given 12/08/24 LARC form signed: yes Problem list reviewed and updated with the most current plan of care details and appropriate ordersplaced. Relevant counseling for the gestational age provided. Continue routine care and follow up unless otherwise noted in visit notes/problem list details Initial Weight: Not Recorded Date -?-?-?-?-?-?-?-?-?-?-?-?- EGA Weight BP Urine Prot -?-?-?-?-?-?-?-?-?-?-?-?- Glucose FHR FuHt Pres Dilation -?-?-?-?-?-?-?-?-?-?-?-?- Effaced St Visit Note 07/30/24 -?-?-?-?-?-?-?-?-?-?-?-?- 9w 4d 138 lb 4 oz 132/83 -?-?-?-?-?-?-?-?-?-?-?-?- 172 -?-?-?-?-?-?-?-?-?-?-?-?- KW- CRL cons wit h dates. Declines NIPT 08/26/24 -?-?-?-?-?-?-?-?-?-?-?-?- 13w 3d 141 lb 2 oz 134/84 Nega tive -?-?-?-?-?-?-?-?-?-?-?-?- Negative 160 -?-?-?-?-?-?-?-?-?-?-?-?- JV- nausea impro ving. wants to start with hospital anatomy scan. fhx amie walker. discussed might need mfm ultrasound if any abnormalities. declines genetic or AFP as discussed at last visit. 09/23/24 -?-?-?-?-?-?-?-?-?-?-?-?- 17w 3d 146 lb 8 oz 114/79 Nega tive -?-?-?-?-?-?-?-?-?-?-?-?- Negative 155 -?-?-?-?-?-?-?-?-?-?-?-?- KW- no vb/crampi ng. possible movement. KW- no vb/cramping. possible movement. US was ordered but not yet scheduled. she will call to get this done. 10/19/24 -?-?-?-?-?-?-?-?-?-?-?-?- 21w 1d 147 lb 8 oz 114/72 Nega tive -?-?-?-?-?-?-?-?-?-?-?-?- Negative 161 22 -?-?-?-?-?-?-?-?-?-?-?-?- JV- no lof, vagi nal bleeding, or cramping. normal anatomy scan. it's a girl!!! 11/18/24 -?-?-?-?-?-?-?-?-?-?-?-?- 25w 3d 151 lb 8 oz 119/73 -?-?-?-?-?-?-?-?-?-?-?-?- 145 25 -?-?-?-?-?-?-?-?-?-?-?-?- KW- no vb/lof/ct x. good fm. glucose given. 12/08/24 -?-?-?-?-?-?-?-?-?-?-?-?- 28w 2d 155 lb 8 oz 124/76 Nega tive -?-?-?-?-?-?-?-?-?-?-?-?- Negative 164 28 -?-?-?-?-?-?-?-?-?-?-?-?- MH-No Vb, LOF. G ood FM. Larc. 28 wk labs pending. Rhogam given. Declines tdap 12/23/24 -?-?-?-?-?-?-?-?-?-?-?-?- 30w 3d 157 lb 6 oz 112/68 Trac e -?-?-?-?-?-?-?-?-?-?-?-?- Negative 145 30 -?-?-?-?-?-?-?-?-?-?-?-?- KW- no vb/lof/ct x. good fm. started Iron supplement. no concerns ACOG First Trimester First Trimester: Second Trimester Second Trimester: Signs and Symptoms of Labor, Selecting a care provider, Reproductive Life Planning & Contreception, Care Planning, Depression/Anxiety and Intimate Partner Violence; Discussed Tobacco Cessation Third Trimester Third Trimester: Pain Management Plans, Labor support person(s), Immediate Larc, Signs and Symptoms of Preeclampsia, Infant Feeding Yes , Badger Education, Family Medical Leave or Disability Forms and Intimate Partner Violence ROS Const Reports system reviewed and no additional complaints, except as documented Eyes Reports system reviewed and no additional complaints, except as documented ENT Reports system reviewed and no additional complaints, except as documented Card Reports system reviewed and no additional complaints, except as documented Resp Reports system reviewed and no additional complaints, except as documented GI Reports system reviewed and no additional complaints, except as documented, Denies nausea and Denies vomiting Reports system reviewed and no additional complaints, except as documented Musc Reports system reviewed and no additional complaints, except as documented Skin/Breast Reports system reviewed and no additional complaints, except as documented Neuro Yes system reviewed and no additional complaints, except as documented Psych Reports system reviewed and no additional complaints, except as documented Endo Reports system reviewed and no additional complaints, except as documented Tommy/Lymph Reports system reviewed and no additional complaints, except as documented Aller/Immun Reports system reviewed and no additional complaints, except as documented Exam Const General: cooperative, healthy appearing and no acute distress Orientation: alert, awake and oriented x3 Neck Neck: normal visual inspection and full ROM Resp Effort & Inspection: normal respiratory effort, able to speak in complete sentences and symmetric chest movement GI Inspection: normal to inspection Palpation: soft and other Other: gravid Skin General: no rashes or lesions noted Neuro General: patient alert, patient awake and patient oriented x3 Cognition: normal cognition Speech: speech normal Gait: normal gait Motor: muscle tone normal throughout Extrem General: normal to inspection and full ROM Psych Appearance: grossly normal Mental Status: mental status grossly normal Mood: congruent mood Affect: normal affect Speech and Movement: speech and movement normal Attitude: cooperative Thought Process: normal Thought Content: normal Judgment: judgment good Results POC Urinalysis 2 Dip (Clinic) Office Urine Glucose Negative Last Edit by Rita Nova on 12/23/24 08:54 Office Urine Protein Trace Last Edit by Rita Nova on 12/23/24 08:54 Coding Level of Care Code OB Routine Diagnoses Supervision of high risk in third trimester O09.93 Trimester: third trimester 30 weeks gestation of Z3A.30 Weeks of gestation: 30 weeks Rh negative state in antepartum period O26.899; 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 Assessment and Plan Assessment and Plan (1) Supervision of high-risk : Status: Acute Qualifiers: Trimester: third trimester Qualified Code(s): O09.93 - Supervision of high risk , unspecified, third trimester Comment: PRR (needs rubella drawn), LAURA 02/28/25, Sally Dhillon, Yousif (2) : Status: Acute Qualifiers: Weeks of gestation: 30 weeks Qualified Code(s): Z3A.30 - 30 weeks gestation of Comment: declined genetic & carrier testing (3) Rh negative state in antepartum period: Status: Acute Comment: O-, Rhogam @ 28 wks & PRN Bleeding, Given 12/08/24 (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 Anatomy scan normal. Declined genetic testing. Orders: Orders POC Urinalysis 2 Dip (Clinic) Today Plan Details Additional Comments: ACOG trimester education reviewed and updated. see problem list details for updated plan management information and see below for orders placed atthis visit. GA appropriate handout given. 12/23/24 0911 s CNM> Date _ Ness Dowd CNM Cosigner Signature: Date (if applicable) CC: ~ [facility]05-19-2025 Evaluation note* Diagnosis Onset Date Resolution Status Admit Date Dandy Walker malformation acute October 19, 2024 10:46am acute October 19, 2024 10:46am Rh negative state in antepartum period acute October 19, 2024 10:46am Supervision of high-risk acute October 19, 2024 1 0:46am Dandy Walker malformation acute November 18, 2024 7:47am acute November 18 7:47am Rh negative state in antepartum period acute November 18 7:47am Supervision of high-risk acute November 18, 2024 7:47am Dandy Walker malformation acute December 08, 2024 1:19pm acute December 08, 2024 1:19pm Rh negative state in antepartum period acute December 08, 2024 1:19pm Supervision of high-risk acute December 08, 2024 1 :19pm 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, 2024 8:43am acute December 23 8:43am Rh negative state in antepartum period acute December 23 8:43am Supervision of high-risk acute December 23, 2024 8:43am Dandy Walker malformation acute January 05, 2025 3:57pm acute January 05 3:57pm Rh negative state in antepartum period acute January 05 3:57pm Supervision of high-risk acute January 05, 2025 3:57pm Dandy Walker malformation acute January 20, 2025 10:23am acute January 20, 025 10:23am Rh negative state in antepartum period acute [place] 20th, 2 025 10:23am Supervision of high-risk acute January 20 10:23am Dandy Walker malformation acute February 04, 2025 11:16am acute February 04, 2025 11:16am Rh negative state in antepartum period acute February 04, 2025 11:16am Supervision of high-risk acute February 04 025 11:16am [facility] Work Phone: 1([phone]) 363-144505-19-2025 Progress [facility] [address] [place] [address], [address] [place] [address] OFFICE VISIT Date of Service: 10/19/24 MR#: [id number] Acct: [id number] Name: JASWINDER WARE Rep #: [id number] : 1995 Provider: Dr. Tami Rockwell DO Age/Sex: 29/F [place] [facility] [place]: Signed Intake Vital Signs 07/30/24 08:52 09/23/24 11:33 10/19/24 10:49 10/19/24 10:51 Height 5 ft 3 in 5 ft 3 in 5 ft 3 in 5 ft 3 in Weight: 147 lb 8 oz BMI 26.1 BP 114/72 Intake Visit Reasons: 22wk ob Kier Drier Required: No Is patient in pain?: No Allergies No Known Allergies Allergy (Verified 10/19/24 10:49) Medications ?Medication ?Instructions ?Recorded ?Confirmed ?Type Cholecalciferol (Vitamin D3) 5,000 mg PO DAILY vitamin 06/16/20 10/19/24 History [Vitamin D3] multivit-min no.71-iron fum 28 cap PO 07/17/24 5 History mg-folate no.1 1 mg-dha 300 mg capsule (PNV-Monette) ondansetron 4 mg disintegrating 4 mg PO Q6H PRN nausea and 07/30/24 10/19/24 Rx tablet vomiting #90 tabs Last Menstrual Period: 05/24/24 Zika: Zika virus screening: Negative : No PFSH PFSH Family History Sister Dandy Walker malformation Social History adopted: No household members: spouse and children number of children: 2 current occupational status: unemployed current occupation: [employer] pets and animals: Yes pets and animals: dog(s), horse(s) and other details: Hens history of recent travel: No sexually active: Yes Smoking Status: Never smoker alcohol intake: never substance use type: does not use well-balanced diet: daily or most days caffeine: No eating out: rarely or never during the past year weight has: remained stable what type of physical activity do you participate in: none cheryl/bahai: Uatsdin seatbelt use: sometimes do you feel safe at home: Yes 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 Date Name GA/Weeks Outcome Route Bth Weight Gen Labor Lgth Anesthesia Del Locatn Provider FOB 03/16/17 Willy 40 live - full term 7lbs 4oz Male epi dural [facility] Dr. Yoana Dodd 06/17/20 Sally 40 live - full term 7#6oz Male epidu ral [facility] ANGIE Delivery Date: 03/16/17 Last Updated by: Kristen Zhong No issues during or delivery HPI 22wk ob Details: JASWINDER WARE is a 29 year old who presents for routine OB visit. OB Visit LAURA Calculator Estimated Delivery Date Method Current WG Current Estimate 02/28/25 LMP (Certain) 21w 1d Other Estimates 02/25/25 Ultrasound #1 21w 4d Expected Delivery Route/Plan Labor Preferences- CB/BF classes: [] labor support person: [] labor intervention preferences: [] pain management options preferred: [] cut cord/dad catch: [] : [] PP control planned: [] discussed possible routes of delivery and associated risks: [] special requests: [] Specific Issue/Plans Covid status: [] Flu vaccine: [] Tdap vaccine: [] Rhogam: [] LARC form signed: [] Problem list reviewed and updated with the most current plan of care details and appropriate ordersplaced. Relevant counseling for the gestational age provided. Continue routine care and follow up unless otherwise noted in visit notes/problem list details Initial Weight: Not Recorded Date -?-?-?-?-?-?-?-?-?-?-?-?- EGA Weight BP Urine Prot -?--?-?-?-?-?-?-?-?-?-?-?- Glucose FHR FuHt Pres Dilation -?-?-?-?-?-?-?--?-?-?-?-?- Effaced St Visit Note 07/30/24 -?-?-?-?-?-?-?-?-?-?-?-?- 9w 4d 138 lb 4 oz 132/83 -?-?-?-?-?-?-?-?-?-?-?-?- 172 -?-?-?-?-?-?-?-?-?-?-?-?- KW- CRL cons wit h dates. Declines NIPT 08/26/24 -?-?-?-?-?-?-?-?-?-?-?-?- 13w 3d 141 lb 2 oz 134/84 Nega tive -?-?-?-?-?-?-?-?-?-?-?-?- Negative 160 -?-?-?-?-?-?-?-?-?-?-?-?- JV- nausea impro ving. wants to start with hospital anatomy scan. fhx amie cuba. discussed might need mfm ultrasound if any abnormalities. declines genetic or AFP as discussed at last visit. 09/23/24 -?-?-?-?-?-?-?-?-?-?-?-?- 17w 3d 146 lb 8 oz 114/79 Nega tive -?-?-?-?-?-?-?-?-?-?-?-?- Negative 155 -?-?-?-?-?-?-?-?-?-?-?-?- KW- no vb/crampi ng. possible movement. KW- no vb/cramping. possible movement. US was ordered but not yet scheduled. she will call to get this done. 10/19/24 -?-?-?-?-?-?-?-?-?-?-?-?- 21w 1d 147 lb 8 oz 114/72 -?-?-?-?-?-?-?-?-?-?-?-?- 161 22 -?-?-?-?-?-?-?-?-?-?-?-?- JV- no lof, vagi nal bleeding, or cramping. normal anatomy scan. it's a girl!!! ACOG First Trimester First Trimester: Discussed Second Trimester Second Trimester: Signs and Symptoms of Labor, Selecting a care provider, Reproductive Life Planning & Contreception, Care Planning, Depression/Anxiety and Intimate Partner Violence; Discussed Tobacco Cessation Third Trimester Third Trimester: Pain Management Plans, Labor support person(s), Immediate Larc, Signs and Symptoms of Preeclampsia, Feeding No , Badger Education and Family Medical Leave or Disability Forms Coding Level of Care Code OB Routine Diagnoses Supervision of high-risk O09.90 21 weeks gestation of Z3A.21 Weeks of gestation: 21 weeks Rh negative state in antepartum period O26.899; 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 Anatomy scan normal. Declined genetic testing. Orders: Orders POC Urinalysis 2 Dip (Clinic) Today 10/19/24 1102 e Quentin DO> Date _ Mari Rockwell DO Cosigner Signature: Date (if applicable) CC: ~ [facility]05-13-2025 Radiology Diagnostic study note [facility] Imaging Services [address] [place] [address] OB Anatomy w/ Transvaginal MR#: [id number] Acct: [id number] Name: JASWINDER WARE Rep #: [id number] : 1995 F 29 From: Jax Cruz MD PCP: Dr. Faby Griggs DO Status: REG CLI Study:OB Anatomy w/ Transvaginal Date of Exam : 10/12/24 Exam# [id number] Ordering Dr: Mari Bateman DO PROCEDURE: OB ANATOMY W/ TRANSVAGINAL 10/12/2024 REASON FOR EXAM: ANATOMY/CERVICAL LENGTH TECHNIQUE: High resolution obstetric ultrasound performed using a 2D transducer. Standard views obtained, including biometry, anatomy survey, and Doppler studies. COMPARISON: None FINDINGS LMP: May 24, 2025 Number: 1 Position: Transverse left Placental Position: Anterior and not low-lying Placental Abnormalities: None DIMENSIONS: Biparietal Diameter: 4.6 cm: 19 weeks and 6 days: 36 percentile/ Head Circumference: 17.5 cm: 20 weeks and 0 days: 34 percentile/ Abdominal Circumference: 14.9 cm: 20 weeks and 1 day: 44th percentile/ Femur Length: 3.1 cm: 19 weeks and 3 days: 20 percentile/ ESTIMATED WEIGHT: 318 g plus/-48 g ESTIMATED WEIGHT PERCENTILE (24+ weeks): 30 ESTIMATED GESTATIONAL AGE: Baseline: 20 weeks and 1 day By Ultrasound: 20 weeks and 0 days ESTIMATED DATE OF DELIVERY: Baseline: February 28, 2025 By Ultrasound: March 01, 2025 BIOPHYSICAL ASSESSMENT: Amniotic Fluid Volume: 5.3 Amniotic Fluid Index within normal limits Cardiac Motion: 150 beats per minute (average) Trunk and Limb Motion: Present. MATERNAL ANATOMY: Adnexa: Neither maternal ovary is successfully identified. Cervical Length (if measured): 4.8 cm ANATOMY: Spine: Unremarkable Cranium: Unremarkable Cerebellum: Unremarkable Cisterna Magna: Unremarkable Cavum Septum Pellucidi: Unremarkable Lateral Ventricles: Unremarkable Choroid Plexus: Unremarkable Midline Falx: Unremarkable Nuchal Fold: Unremarkable Upper Lip: Unremarkable Heart: Unremarkable Ventricular Outflow Tracts: Unremarkable Stomach: Unremarkable Kidneys: Bladder: Unremarkable Umbilical Cord: Unremarkable Extremities: Unremarkable US/OB Anatomy w/ Transvaginal IMPRESSION: Single live intrauterine gestation with a mean gestational age of 20 weeks. Reading Location: [facility] CC: Dr. Mari Rockwell DO; Dr. 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, 2024 11:25am acute September 23 11:25am Rh negative state in antepar maximino period acute September 23, 2024 11:25am Supervision of high-risk acute September 23, 2024 11:25am Dandy Walker malformation acute October 19, 2024 10:46am acute October 19, 2024 10:46am Rh negative state in antepar maximino period acute October 19, 2024 1 0:46am Supervision of high-risk acute October 19, 2024 1 0:46am Dandy Walker malformation acute November 18, 2024 7:47am acute November 18 7:47am Rh negative state in antepar maximino period acute November 18, 2024 7:47am Supervision of high-risk acute November 18, 2024 7:47am Dandy Walker malformation acute December 08, 2024 1:19pm acute December 08, 2024 1:19pm Rh negative state in antepar maximino period acute December 08, 2024 1 :19pm Supervision of high-risk acute December 08, 2024 1 :19pm 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, 2024 8:43am acute December 23 8:43am Rh negative state in antepar maximino period acute December 23, 2024 8:43am Supervision of high-risk acute December 23, 2024 8:43am Dandy Walker malformation acute January 05, 2025 3:57pm acute January 05 3:57pm Rh negative state in antepar maximino period acute January 05, 2025 3:57pm Supervision of high-risk acute January 05, 2025 3:57pm [facility] Work Phone: 1(770) 154-335904-23-2025 Evaluation note* Diagnosis Onset Date Resolution Status Admit Date 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, 2024 11:25am acute September 23 11:25am Rh negative state in antepar maximino period acute September 23, 2024 11:25am Supervision of high-risk acute September 23, 2024 11:25am Dandy Walker malformation acute October 19, 2024 10:46am acute October 19, 2024 10:46am Rh negative state in antepar maximino period acute October 19, 2024 1 0:46am Supervision of high-risk acute October 19, 2024 1 0:46am Dandy Walker malformation acute November 18, 2024 7:47am acute November 18 7:47am Rh negative state in antepar maximino period acute November 18, 2024 7:47am Supervision of high-risk acute November 18, 2024 7:47am Dandy Walker malformation acute December 08, 2024 1:19pm acute December 08, 2024 1:19pm Rh negative state in antepar maximino period acute December 08, 2024 1 :19pm Supervision of high-risk acute December 08, 2024 1 :19pm 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, 2024 8:43am acute December 23 8:43am Rh negative state in antepar maximino period acute December 23, 2024 8:43am Supervision of high-risk acute December 23, 2024 8:43am Dandy Walker malformation acute January 05, 2025 3:57pm acute January 05 3:57pm Rh negative state in antepar maximino period acute January 05, 2025 3:57pm Supervision of high-risk acute January 05, 2025 3:57pm Dandy Walker malformation acute January 20, 2025 10:23am acute January 20, 2 025 10:23am Rh negative state in antepar maximino period acute January 20 10:23am Supervision of high-risk acute January 20 10:23am [facility] Work Phone: 1([phone]) 327-123903-26-2025 Evaluation note* Diagnosis Onset Date Resolution Status Admit Date Dandy Walker malformation acute August 26, 2024 8:49am acute August 26 8:49am Rh negative state in antepar maximino period acute August 26, 2024 8:49am Supervision of high-risk acute August 26, 2024 8:49am 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, 2024 11:25am acute September 23 11:25am Rh negative state in antepar maximino period acute September 23, 2024 11:25am Supervision of high-risk acute September 23, 2024 11:25am Dandy Walker malformation acute October 19, 2024 10:46am acute October 19, 2024 10:46am Rh negative state in antepar maximino period acute October 19, 2024 1 0:46am Supervision of high-risk acute October 19, 2024 1 0:46am Dandy Walker malformation acute November 18, 2024 7:47am acute November 18 7:47am Rh negative state in antepar maximino period acute November 18, 2024 7:47am Supervision of high-risk acute November 18, 2024 7:47am Dandy Walker malformation acute December 08, 2024 1:19pm acute December 08, 2024 1:19pm Rh negative state in antepar maximino period acute December 08, 2024 1 :19pm Supervision of high-risk acute December 08, 2024 1 :19pm [facility] Work Phone: 1([phone]) 796-639703-26-2025 Evaluation note* Diagnosis Onset Date Resolution Status Admit Date Dandy Walker malformation acute August 26, 2024 8:49am acute August 26 8:49am Rh negative state in antepar maximino period acute August 26, 2024 8:49am Supervision of high-risk acute August 26, 2024 8:49am 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, 2024 11:25am acute September 23 11:25am Rh negative state in antepar maximino period acute September 23, 2024 11:25am Supervision of high-risk acute September 23, 2024 11:25am Dandy Walker malformation acute October 19, 2024 10:46am acute October 19, 2024 10:46am Rh negative state in antepar maximino period acute October 19, 2024 1 0:46am Supervision of high-risk acute October 19, 2024 1 0:46am Dandy Walker malformation acute November 18, 2024 7:47am acute November 18 7:47am Rh negative state in antepar maximino period acute November 18, 2024 7:47am Supervision of high-risk acute November 18, 2024 7:47am Dandy Walker malformation acute December 08, 2024 1:19pm acute December 08, 2024 1:19pm Rh negative state in antepar maximino period acute December 08, 2024 1 :19pm Supervision of high-risk acute December 08, 2024 1 :19pm 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, 2024 8:43am acute December 23 8:43am Rh negative state in antepar maximino period acute December 23, 2024 8:43am Supervision of high-risk acute December 23, 2024 8:43am [facility] Work Phone: 1([phone]) 505-486402-27-2025 NotePap Smear Specimen AdequacyFebruary 2024 12:59amComment.Satisfactory for evaluation. Endocervical and/or squamous metaplasticcells (endocervical component)are present.[facility] INTER[facility]ACED A#[id number] Clinic [facility] HospitalComment on above:Satisfactory for evaluation. Endocervical and/or squamous metaplasticcells (endocervical component)are present.07-30-2024 Evaluation note* Diagnosis Onset Date Resolution Status Admit Date Dandy Walker malformation acute July 30, 2024 8:49am acute July 30, 2024 8:49am Rh negative state in antepartum period acute July 30, 2024 8:49am Supervision of high-risk acute July 30, 8:49am [facility] Work Phone: 1([phone]) 367-772602-27-2025 Evaluation note* Diagnosis Onset Date Resolution Status Admit Date Dandy Walker malformation acute July 30, 2024 8:49am acute July 30, 2024 8:49am Rh negative state in antepartum period acute July 30, 2024 8:49am Supervision of high-risk acute July 30, 2 025 8:49am Dandy Walker malformation acute August 26, 2024 8:49am acute August 26 8:49am Rh negative state in antepartum period acute August 26 8:49am Supervision of high-risk acute August 26, 2024 8:49am 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, 2024 11:25am acute September 23 11:25am Rh negative state in antepartum period acute September 23 11:25am Supervision of high-risk acute September 23, 2024 11:25am [facility] Work Phone: 1(740) 211-727002-27-2025 Evaluation note* Diagnosis Onset Date Resolution Status Admit Date Dandy Walker malformation acute July 30, 2024 8:49am acute July 30, 2024 8:49am Rh negative state in antepartum period acute July 30, 2024 8:49am Supervision of high-risk acute July 30 8:49am Dandy Walker malformation acute August 26, 2024 8:49am acute August 26 8:49am Rh negative state in antepartum period acute August 26 8:49am Supervision of high-risk acute August 26, 2024 8:49am 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, 2024 11:25am acute September 23 11:25am Rh negative state in antepartum period acute September 23 11:25am Supervision of high-risk acute September 23, 2024 11:25am Dandy Walker malformation acute October 19, 2024 10:46am acute October 19, 2024 10:46am Rh negative state in antepartum period acute October 19, 2024 10:46am Supervision of high-risk acute October 19, 2024 1 0:46am [facility] Work Phone: 1(671) 394-648802-27-2025 Evaluation note* Diagnosis Onset Date Resolution Status Admit Date Dandy Walker malformation acute July 30, 2024 8:49am acute July 30, 2024 8:49am Rh negative state in antepartum period acute July 30, 2024 8:49am Supervision of high-risk acute July 30 025 8:49am Dandy Walker malformation acute August 26, 2024 8:49am acute August 26 8:49am Rh negative state in antepartum period acute August 26 8:49am Supervision of high-risk acute August 26, 2024 8:49am 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, 2024 11:25am acute September 23 11:25am Rh negative state in antepartum period acute September 23 11:25am Supervision of high-risk acute September 23, 2024 11:25am Dandy Walker malformation acute October 19, 2024 10:46am acute October 19, 2024 10:46am Rh negative state in antepartum period acute October 19, 2024 10:46am Supervision of high-risk acute October 19, 2024 1 0:46am Dandy Walker malformation acute November 18, 2024 7:47am acute November 18 7:47am Rh negative state in antepartum period acute November 18 7:47am Supervision of high-risk acute November 18, 2024 7:47am [facility] Work Phone: Progress note Author Mari Saavedra [facility] Note Date/Time October 19, 2024 11:02 am [facility] [address] [place] [address], [address] [place] [address] OFFICE VISIT Date of Service: 10/19/24 MR#: [id number] Acct: [id number] Name: JASWINDER WARE Rep #: [id number] : 1995 Provider: Dr. Tami Rockwell DO Age/Sex: 29/F [place] [facility]: Signed Intake Vital Signs 07/30/24 08:52 09/23/24 11:33 10/19/24 10:49 10/19/24 10:51 Height 5 ft 3 in 5 ft 3 in 5 ft 3 in 5 ft 3 in Weight: 147 lb 8 oz BMI 26.1 BP 114/72 Intake Visit Reasons: 22wk ob Kier Drier Required: No Is patient in pain?: No Allergies No Known Allergies Allergy (Verified 10/19/24 10:49) Medications ?Medication ?Instructions ?Recorded ?Confirmed ?Type Cholecalciferol (Vitamin D3) 5,000 mg PO DAILY vitamin 06/16/20 10/19/24 History [Vitamin D3] multivit-min no.71-iron fum 28 cap PO 07/17/24 5 History mg-folate no.1 1 mg-dha 300 mg capsule (PNV-Monette) ondansetron 4 mg disintegrating 4 mg PO Q6H PRN nausea and 07/30/24 10/19/24 Rx tablet vomiting #90 tabs Last Menstrual Period: 05/24/24 Zika: Zika virus screening: Negative : No PFSH PFSH Family History Sister Mango [place] malformation Social History adopted: No household members: spouse and children number of children: 2 current occupational status: unemployed current occupation: [employer] pets and animals: Yes pets and animals: dog(s), horse(s) and other details: Hens history of recent travel: No sexually active: Yes Smoking Status: Never smoker alcohol intake: never substance use type: does not use well-balanced diet: daily or most days caffeine: No eating out: rarely or never during the past year weight has: remained stable what type of physical activity do you participate in: none cheryl/bahai: Uatsdin seatbelt use: sometimes do you feel safe at home: Yes 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 Date Name GA/Weeks Outcome Route Bth Weight Gen Labor Lgth Anesthesia Del Locatn Provider FOB 03/16/17 Willy 40 live - full term 7lbs 4oz Male epi dural [facility] Dr. Yoana Dodd 06/17/20 Sally 40 live - full term 7#6oz Male epidu ral [facility] ANGIE Delivery Date: 03/16/17 Last Updated by: Kristen Zhong No issues during or delivery HPI 22wk ob Details: JASWINDER WARE is a 29 year old who presents for routine OB visit. OB Visit LAURA Calculator Estimated Delivery Date Method Current WG Current Estimate 02/28/25 LMP (Certain) 21w 1d Other Estimates 02/25/25 Ultrasound #1 21w 4d Expected Delivery Route/Plan Labor Preferences- CB/BF classes: [] labor support person: [] labor intervention preferences: [] pain management options preferred: [] cut cord/dad catch: [] : [] PP control planned: [] discussed possible routes of delivery and associated risks: [] special requests: [] Specific Issue/Plans Covid status: [] Flu vaccine: [] Tdap vaccine: [] Rhogam: [] LARC form signed: [] Problem list reviewed and updated with the most current plan of care details and appropriate orders placed. Relevant counseling for the gestational age provided. Continue routine care and follow up unless otherwise noted in visit notes/problem list details Initial Weight: Not Recorded Date -?-?-?-?-?-?-?-?-?-?-?-?- EGA Weight BP Urine Prot -?--?-?-?-?-?-?-?-?-?-?-?- Glucose FHR FuHt Pres Dilation -?-?-?-?-?-?-?--?-?-?-?-?- Effaced St Visit Note 07/30/24 -?-?-?-?-?-?-?-?-?-?-?-?- 9w 4d 138 lb 4 oz 132/83 -?-?-?-?-?-?-?-?-?-?-?-?- 172 -?-?-?-?-?-?-?-?-?-?-?-?- KW- CRL cons wit h dates. Declines NIPT 08/26/24 -?-?-?-?-?-?-?-?-?-?-?-?- 13w 3d 141 lb 2 oz 134/84 Nega tive -?-?-?-?-?-?-?-?-?-?-?-?- Negative 160 -?-?-?-?-?-?-?-?-?-?-?-?- JV- nausea impro ving. wants to start with hospital anatomy scan. fhx dandy- walker. discussed might need mfm ultrasound if any abnormalities. declines genetic or AFP as discussed at last visit. 09/23/24 -?-?-?-?-?-?-?-?-?-?-?-?- 17w 3d 146 lb 8 oz 114/79 Nega tive -?-?-?-?-?-?-?-?-?-?-?-?- Negative 155 -?-?-?-?-?-?-?-?-?-?-?-?- KW- no vb/crampi ng. possible movement. KW- no vb/cramping. possible movement. US was ordered but not yet scheduled. she will call to get this done. 10/19/24 -?-?-?-?-?-?-?-?-?-?-?-?- 21w 1d 147 lb 8 oz 114/72 -?-?-?-?-?-?-?-?-?-?-?-?- 161 22 -?-?-?-?-?-?-?-?-?-?-?-?- JV- no lof, vagi nal bleeding, or cramping. normal anatomy scan. it's a girl!!! ACOG First Trimester First Trimester: Discussed Second Trimester Second Trimester: Signs and Symptoms of Labor, Selecting a care provider, Reproductive Life Planning & Contreception, Care Planning, Depression/Anxiety and Intimate Partner Violence; Discussed Tobacco Cessation Third Trimester Third Trimester: Pain Management Plans, Labor support person(s), Immediate Larc, Signs and Symptoms of Preeclampsia, Infant Feeding No , Education and Family Medical Leave or Disability Forms Coding Level of Care Code OB Routine Diagnoses Supervision of high-risk O09.90 21 weeks gestation of Z3A.21 Weeks of gestation: 21 weeks Rh negative state in antepartum period O26.899; 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 Anatomy scan normal. Declined genetic testing. Orders: Orders POC Urinalysis 2 Dip (Clinic) Today 10/19/24 1102 <Electronically signed by Mari John DO> Date _ Mari Rockwell DO Cosigner Signature: Date (if applicable) CC: ~ [facility] Work Phone: Progress note Author Ness Dowd [facility] Note Date/Time December 23, 2024 9:11 am [facility] [address] [place] [address], [place] [address] OFFICE VISIT Date of Service: 12/23/24 MR#: [id number] Acct: [id number] Name: JASWINDER WARE Rep #: [id number] : 1995 Provider: MELO Dowd Age/Sex: 29/F Location: [facility] Status: Signed Intake Vital Signs 10/19/24 10:51 12/08/24 13:30 12/23/24 08:45 12/23/24 08:53 Height 5 ft 3 in 5 ft 3 in 5 ft 3 in 5 ft 3 in Weight: 157 lb 6 oz BMI 27.8 BP 112/68 Intake Visit Reasons: 30 wk ob Kier Drier Required: No Is patient in pain?: No Allergies No Known Allergies Allergy (Verified 12/23/24 08:45) Medications ?Medication ?Instructions ?Recorded ?Confirmed ?Type Cholecalciferol (Vitamin D3) 5,000 mg PO DAILY vitamin 06/16/20 12/23/24 History [Vitamin D3] multivit-min no.71-iron fum 28 cap PO 07/17/24 5 History mg-folate no.1 1 mg-dha 300 mg capsule (PNV-Monette) ondansetron 4 mg disintegrating 4 mg PO Q6H PRN nausea and 07/30/24 12/23/24 Rx tablet vomiting #90 tabs Last Menstrual Period: 05/24/24 : Yes PFSH PFSH Family History Sister Mango [place] malformation Social History adopted: No household members: spouse and children number of children: 2 current occupational status: unemployed current occupation: [employer] pets and animals: Yes pets and animals: dog(s), horse(s) and other details: Hens history of recent travel: No sexually active: Yes Smoking Status: Never smoker alcohol intake: never substance use type: does not use well-balanced diet: daily or most days caffeine: No eating out: rarely or never during the past year weight has: remained stable what type of physical activity do you participate in: none cheryl/bahai: Uatsdin seatbelt use: sometimes do you feel safe at home: Yes 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 Date Name GA/Weeks Outcome Route Bth Weight Infant Gen Labor Lgth Anesthesia Del Locatn Provider FOB 03/16/17 Willy 40 live - full term 7lbs 4oz Male epi dural [facility] Dr. Yoana Dodd 06/17/20 Sally 40 live - full term 7#6oz Male epidu ral [facility] ANGIE Delivery Date: 03/16/17 Last Updated by: Kristen Zhong No issues during or delivery HPI 30 wk ob Details: JASWINDER WARE is a 29 year old who presents for routine OB visit. OB Visit LAURA Calculator Estimated Delivery Date Method Current WG Current Estimate 02/28/25 LMP (Certain) 30w 3d Other Estimates 02/25/25 Ultrasound #1 30w 6d Expected Delivery Route/Plan Labor Preferences- CB/BF classes: no labor support person: Yousif labor intervention preferences: [] pain management options preferred: epidural cut cord/dad catch: cord : yes but not usually successful PP control planned: discussed discussed possible routes of delivery and associated risks: [] special requests: [] Specific Issue/Plans Covid status: [] Flu vaccine: [] Tdap vaccine: declines Rhogam: given 12/08/24 LARC form signed: yes Problem list reviewed and updated with the most current plan of care details and appropriate orders placed. Relevant counseling for the gestational age provided. Continue routine care and follow up unless otherwise noted in visit notes/problem list details Initial Weight: Not Recorded Date -?-?-?-?-?-?-?-?-?-?-?-?- EGA Weight BP Urine Prot -?-?-?-?-?-?-?-?-?-?-?-?- Glucose FHR FuHt Pres Dilation -?-?-?-?-?-?-?-?-?-?-?-?- Effaced St Visit Note 07/30/24 -?-?-?-?-?-?-?-?-?-?-?-?- 9w 4d 138 lb 4 oz 132/83 -?-?-?-?-?-?-?-?-?-?-?-?- 172 -?-?-?-?-?-?-?-?-?-?-?-?- KW- CRL cons wit h dates. Declines NIPT 08/26/24 -?-?-?-?-?-?-?-?-?-?-?-?- 13w 3d 141 lb 2 oz 134/84 Nega tive -?-?-?-?-?-?-?-?-?-?-?-?- Negative 160 -?-?-?-?-?-?-?-?-?-?-?-?- JV- nausea impro ving. wants to start with hospital anatomy scan. fhx amie cub[place]. discussed might need mfm ultrasound if any abnormalities. declines genetic or AFP as discussed at last visit. 09/23/24 -?-?-?-?-?-?-?-?-?-?-?-?- 17w 3d 146 lb 8 oz 114/79 Nega tive -?-?-?-?-?-?-?-?-?-?-?-?- Negative 155 -?-?-?-?-?-?-?-?-?-?-?-?- KW- no vb/crampi ng. possible movement. KW- no vb/cramping. possible movement. US was ordered but not yet scheduled. she will call to get this done. 10/19/24 -?-?-?-?-?-?-?-?-?-?-?-?- 21w 1d 147 lb 8 oz 114/72 Nega tive -?-?-?-?-?-?-?-?-?-?-?-?- Negative 161 22 -?-?-?-?-?-?-?-?-?-?-?-?- JV- no lof, vagi nal bleeding, or cramping. normal anatomy scan. it's a girl!!! 11/18/24 -?-?-?-?-?-?-?-?-?-?-?-?- 25w 3d 151 lb 8 oz 119/73 -?-?-?-?-?-?-?-?-?-?-?-?- 145 25 -?-?-?-?-?-?-?-?-?-?-?-?- KW- no vb/lof/ct x. good fm. glucose given. 12/08/24 -?-?-?-?-?-?-?-?-?-?-?-?- 28w 2d 155 lb 8 oz 124/76 Nega tive -?-?-?-?-?-?-?-?-?-?-?-?- Negative 164 28 -?-?-?-?-?-?-?-?-?-?-?-?- MH-No Vb, LOF. G ood FM. Larc. 28 wk labs pending. Rhogam given. Declines tdap 12/23/24 -?-?-?-?-?-?-?-?-?-?-?-?- 30w 3d 157 lb 6 oz 112/68 Trac e -?-?-?-?-?-?-?-?-?-?-?-?- Negative 145 30 -?-?-?-?-?-?-?-?-?-?-?-?- KW- no vb/lof/ct x. good fm. started Iron supplement. no concerns ACOG First Trimester First Trimester: Second Trimester Second Trimester: Signs and Symptoms of Labor, Selecting a care provider, Reproductive Life Planning & Contreception, Care Planning, Depression/Anxiety and Intimate Partner Violence; Discussed Tobacco Cessation Third Trimester Third Trimester: Pain Management Plans, Labor support person(s), Immediate Larc, Signs and Symptoms of Preeclampsia, Feeding Yes , Badger Education, Family Medical Leave or Disability Forms and Intimate Partner Violence ROS Const Reports system reviewed and no additional complaints, except as documented Eyes Reports system reviewed and no additional complaints, except as documented ENT Reports system reviewed and no additional complaints, except as documented Card Reports system reviewed and no additional complaints, except as documented Resp Reports system reviewed and no additional complaints, except as documented GI Reports system reviewed and no additional complaints, except as documented, Denies nausea and Denies vomiting Reports system reviewed and no additional complaints, except as documented Musc Reports system reviewed and no additional complaints, except as documented Skin/Breast Reports system reviewed and no additional complaints, except as documented Neuro Yes system reviewed and no additional complaints, except as documented Psych Reports system reviewed and no additional complaints, except as documented Endo Reports system reviewed and no additional complaints, except as documented Tommy/Lymph Reports system reviewed and no additional complaints, except as documented Aller/Immun Reports system reviewed and no additional complaints, except as documented Exam Const General: cooperative, healthy appearing and no acute distress Orientation: alert, awake and oriented x3 Neck Neck: normal visual inspection and full ROM Resp Effort & Inspection: normal respiratory effort, able to speak in complete sentences and symmetric chest movement GI Inspection: normal to inspection Palpation: soft and other Other: gravid Skin General: no rashes or lesions noted Neuro General: patient alert, patient awake and patient oriented x3 Cognition: normal cognition Speech: speech normal Gait: normal gait Motor: muscle tone normal throughout Extrem General: normal to inspection and full ROM Psych Appearance: grossly normal Mental Status: mental status grossly normal Mood: congruent mood Affect: normal affect Speech and Movement: speech and movement normal Attitude: cooperative Thought Process: normal Thought Content: normal Judgment: judgment good Results POC Urinalysis 2 Dip (Clinic) Office Urine Glucose Negative Last Edit by Rita Nova on 12/23/24 08:54 Office Urine Protein Trace Last Edit by Rita Nova on 12/23/24 08:54 Coding Level of Care Code OB Routine Diagnoses Supervision of high risk in third trimester O09.93 Trimester: third trimester 30 weeks gestation of Z3A.30 Weeks of gestation: 30 weeks Rh negative state in antepartum period O26.899; 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 Assessment and Plan Assessment and Plan (1) Supervision of high-risk : Status: Acute Qualifiers: Trimester: third trimester Qualified Code(s): O09.93 - Supervision of high risk , unspecified, third trimester Comment: PRR (needs rubella drawn), LAURA 02/28/25, Sally Dhillon, Yousif (2) : Status: Acute Qualifiers: Weeks of gestation: 30 weeks Qualified Code(s): Z3A.30 - 30 weeks gestation of Comment: declined genetic & carrier testing (3) Rh negative state in antepartum period: Status: Acute Comment: O-, Rhogam @ 28 wks & PRN Bleeding, Given 12/08/24 (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 Anatomy scan normal. Declined genetic testing. Orders: Orders POC Urinalysis 2 Dip (Clinic) Today Plan Details Additional Comments: ACOG trimester education reviewed and updated. see problem list details for updated plan management information and see below for orders placed at this visit. GA appropriate handout given. 12/23/24 0911 <Electronically signed by Ness gracia CNM> Date _ Ness Dowd CNM Cosigner Signature: Date (if applicable) CC: ~ [facility] Work Phone: Progress note Author Mari Saavedra [facility] Note Date/Time January 20, 2025 10 :47am [facility] [address] [place] [address], [address] [place] [address] OFFICE VISIT Date of Service: 01/20/25 MR#: [id number] Acct: [id number] Name: JASWINDER WARE Rep #: [id number] : 1995 Provider: Dr. Tami Rockwell DO Age/Sex: 29/F [place] [facility] [place]: Signed Intake Vital Signs 12/08/24 13:30 01/05/25 16:08 01/20/25 10:31 01/20/25 10:31 Height 5 ft 3 in 5 ft 3 in 5 ft 3 in 5 ft 3 in Weight: 161 lb 7 oz BMI 28.5 BP 128/81 H Intake Visit Reasons: 34wk ob Kier Drier Required: No Is patient in pain?: No Allergies No Known Allergies Allergy (Verified 01/20/25 10:31) Medications ?Medication ?Instructions ?Recorded ?Confirmed ?Type Cholecalciferol (Vitamin D3) 5,000 mg PO DAILY vitamin 06/16/20 01/20/25 History [Vitamin D3] multivit-min no.71-iron fum 28 cap PO 07/17/24 5 History mg-folate no.1 1 mg-dha 300 mg capsule (PNV-Monette) ondansetron 4 mg disintegrating 4 mg PO Q6H PRN nausea and 07/30/24 01/20/25 Rx tablet vomiting #90 tabs Last Menstrual Period: 05/24/24 Zika: Zika virus screening: Negative : No PFSH PFSH Family History Sister Mango [place] malformation Social History adopted: No household members: spouse and children number of children: 2 current occupational status: unemployed current occupation: [employer] pets and animals: Yes pets and animals: dog(s), horse(s) and other details: Willie history of recent travel: No sexually active: Yes Smoking Status: Never smoker alcohol intake: never substance use type: does not use well-balanced diet: daily or most days caffeine: No eating out: rarely or never during the past year weight has: remained stable what type of physical activity do you participate in: none cheryl/bahai: Uatsdin seatbelt use: sometimes do you feel safe at home: Yes 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 Date Name GA/Weeks Outcome Route Bth Weight Infant Gen Labor Lgth Anesthesia Del Locatn Provider FOB 03/16/17 Willy 40 live - full term 7lbs 4oz Male epi dural [facility] Dr. Yoana Dodd 06/17/20 Sally 40 live - full term 7#6oz Male epidu ral [facility] ANGIE Delivery Date: 03/16/17 Last Updated by: Kristen Zhong No issues during or delivery HPI 34wk ob Details: JASWINDER WARE is a 29 year old who presents for routine OB visit. OB Visit LAURA Calculator Estimated Delivery Date Method Current WG Current Estimate 02/28/25 LMP (Certain) 34w 3d Other Estimates 02/25/25 Ultrasound #1 34w 6d Expected Delivery Route/Plan Labor Preferences- CB/BF classes: no labor support person: Yousif labor intervention preferences: [] pain management options preferred: epidural cut cord/dad catch: cord : yes but not usually successful PP control planned: discussed discussed possible routes of delivery and associated risks: [] special requests: [] Specific Issue/Plans Covid status: [] Flu vaccine: [] Tdap vaccine: declines Rhogam: given 12/08/24 LARC form signed: yes Problem list reviewed and updated with the most current plan of care details and appropriate orders placed. Relevant counseling for the gestational age provided. Continue routine care and follow up unless otherwise noted in visit notes/problem list details Initial Weight: Not Recorded Date -?-?-?-?-?-?-?-?-?-?-?-?- EGA Weight BP Urine Prot -?-?-?-?-?-?-?-?-?-?-?-?- Glucose FHR FuHt Pres Dilation -?-?-?-?-?-?-?-?-?-?-?-?- Effaced St Visit Note 07/30/24 -?-?-?-?-?-?-?-?-?-?-?-?- 9w 4d 138 lb 4 oz 132/83 -?-?-?-?-?-?-?-?-?-?-?-?- 172 -?-?-?-?-?-?-?-?-?-?-?-?- KW- CRL cons wit h dates. Declines NIPT 08/26/24 -?-?-?-?-?-?-?-?-?-?-?-?- 13w 3d 141 lb 2 oz 134/84 Nega tive -?-?-?-?-?-?-?-?-?-?-?-?- Negative 160 -?-?-?-?-?-?-?-?-?-?-?-?- JV- nausea impro ving. wants to start with hospital anatomy scan. fhx amie [place]. discussed might need mfm ultrasound if any abnormalities. declines genetic or AFP as discussed at last visit. 09/23/24 -?-?-?-?-?-?-?-?-?-?-?-?- 17w 3d 146 lb 8 oz 114/79 Nega tive -?-?-?-?-?-?-?-?-?-?-?-?- Negative 155 -?-?-?-?-?-?-?-?-?--?-?-?- KW- no vb/crampi ng. possible movement. KW- no vb/cramping. possible movement. US was ordered but not yet scheduled. she will call to get this done. 10/19/24 -?-?-?-?-?-?-?-?-?-?-?-?- 21w 1d 147 lb 8 oz 114/72 Nega tive -?-?-?-?-?-?-?-?-?-?-?-?- Negative 161 22 -?-?-?-?-?-?-?-?-?-?-?-?- JV- no lof, vagi nal bleeding, or cramping. normal anatomy scan. it's a girl!!! 11/18/24 -?-?-?-?-?-?-?-?-?-?-?-?- 25w 3d 151 lb 8 oz 119/73 -?-?-?-?-?-?-?-?-?-?-?-?- 145 25 -?-?-?-?-?-?-?-?-?-?-?-?- KW- no vb/lof/ct x. good fm. glucose given. 12/08/24 -?-?-?-?-?-?-?-?-?-?-?-?- 28w 2d 155 lb 8 oz 124/76 Nega tive -?-?-?-?-?-?-?-?-?-?-?-?- Negative 164 28 -?-?-?-?-?-?-?-?-?-?-?-?- MH-No Vb, LOF. G ood FM. Larc. 28 wk labs pending. Rhogam given. Declines tdap 12/23/24 -?-?-?-?-?-?-?-?-?-?-?-?- 30w 3d 157 lb 6 oz 112/68 Trac e -?-?-?-?-?-?-?-?-?-?-?-?- Negative 145 30 -?-?-?-?-?-?-?-?-?-?-?-?- KW- no vb/lof/ct x. good fm. started Iron supplement. no concerns 01/05/25 -?-?-?-?-?-?-?-?-?-?-?-?- 32w 2d 157 lb 136/84 Negative -?-?-?-?-?-?-?-?-?-?-?-?- Negative 150 33 -?-?-?-?-?-?-?-?-?-?-?-?- JV- no lof, vagi nal bleeding, or dec fm . bp is mildly elevated for her but within normal range. no headaches or visual changes. she states that this happened to her last . will watch closely. 01/20/25 -?-?-?-?-?-?-?-?-?-?-?-?- 34w 3d 161 lb 7 oz 128/81 Nega tive -?-?--?-?-?-?-?-?-?-?-?-?- Negative 145 35 -?-?-?-?-?-?-?-?-?-?-?-?- JV- bp better an d asymptomatic. no lof, vaginal bleeding, or dec fm. ACOG First Trimester First Trimester: Discussed Second Trimester Second Trimester: Signs and Symptoms of Labor, Selecting a care provider, Reproductive Life Planning & Contreception, Care Planning, Depression/Anxiety and Intimate Partner Violence; Discussed Tobacco Cessation Third Trimester Third Trimester: Pain Management Plans, Labor support person(s), Immediate Larc, Signs and Symptoms of Preeclampsia, Feeding No , Badger Education, Family Medical Leave or Disability Forms and Intimate Partner Violence Results POC Urinalysis 2 Dip (Clinic) Office Urine Glucose Negative Last Edit by Kristen Zhong on 01/20/25 10: 38 Office Urine Protein Negative Last Edit by Kristen Zhong on 01/20/25 10: 38 Coding Level of Care Code OB Routine Diagnoses 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 Anatomy scan normal. Declined genetic testing. (2) Rh negative state in antepartum period: Status: Acute Comment: O-, Rhogam @ 28 wks & PRN Bleeding, Given 12/08/24 (3) : Status: Acute Qualifiers: Weeks of gestation: 34 weeks Qualified Code(s): Z3A.34 - 34 weeks gestation of Comment: declined genetic & carrier testing (4) Supervision of high-risk : Status: Acute Qualifiers: Trimester: third trimester Qualified Code(s): O09.93 - Supervision of high risk , unspecified, third trimester Comment: PRR , LAURA 02/28/25, PC Sally Aguilera, Yousif Orders: Orders POC Urinalysis 2 Dip (Clinic) Today 01/20/25 1047 <Electronically signed by Mari John DO> Date _ Mari Rockwell DO Cosigner Signature: Date (if applicable) CC: ~ [facility] Work Phone: Progress note Author Ness Dowd [facility] Note Date/Time February 04, 2025 11:[address] [place] [address] [facility] [address] [place] [address], [address] [place] [address] OFFICE VISIT Date of Service: 02/04/25 MR#: [id number] Acct: [id number] Name: JASWINDER WARE Rep #: [id number] : 1995 Provider: MELO Dowd Age/Sex: 29/F [place] [facility] [place]: Signed Intake Vital Signs 12/08/24 13:30 01/20/25 10:31 02/04/25 11:18 Height 5 ft 3 in 5 ft 3 in 5 ft 3 in Weight: 164 lb 5 oz BMI 29.0 BP 133/84 H Intake Visit Reasons: 36wk ob Chief Complaint: 36wk OB Kier Drier Required: No Is patient in pain?: No Allergies No Known Allergies Allergy (Verified 02/04/25 11:16) Medications ?Medication ?Instructions ?Recorded ?Confirmed ?Type Cholecalciferol (Vitamin D3) 5,000 mg PO DAILY vitamin 06/16/20 02/04/25 History [Vitamin D3] multivit-min no.71-iron fum 28 cap PO 07/17/24 5 History mg-folate no.1 1 mg-dha 300 mg capsule (PNV-Monette) ondansetron 4 mg disintegrating 4 mg PO Q6H PRN nausea and 07/30/24 02/04/25 Rx tablet vomiting #90 tabs Last Menstrual Period: 05/24/24 : No PFSH PFSH Family History Sister Mango [place] malformation Social History adopted: No household members: spouse and children number of children: 2 current occupational status: unemployed current occupation: [employer] pets and animals: Yes pets and animals: dog(s), horse(s) and other details: Hens history of recent travel: No sexually active: Yes Smoking Status: Never smoker alcohol intake: never substance use type: does not use well-balanced diet: daily or most days caffeine: No eating out: rarely or never during the past year weight has: remained stable what type of physical activity do you participate in: none cheryl/bahai: Uatsdin seatbelt use: sometimes do you feel safe at home: Yes 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 Date Name GA/Weeks Outcome Route Bth Weight Gen Labor Lgth Anesthesia Del Locatn Provider FOB 03/16/17 Willy 40 live - full term 7lbs 4oz [facility] [facility] Dr[facility] Yoana Dodd 06/17/20 Sally 38 live - full term 7#6oz Male epidu ral [facility] Delivery Date: 03/16/17 Last Updated by: Kristen Zhong No issues during or delivery HPI 36wk ob Details: JASWINDER WARE is a 29 year old who presents for routine OB visit. OB Visit LAURA Calculator Estimated Delivery Date Method Current WG Current Estimate 02/28/25 LMP (Certain) 36w 4d Other Estimates 02/25/25 Ultrasound #1 37w 0d Expected Delivery Route/Plan Labor Preferences- CB/BF classes: no labor support person: Yousif labor intervention preferences: [] pain management options preferred: epidural cut cord/dad catch: cord : yes but not usually successful PP control planned: discussed discussed possible routes of delivery and associated risks: [] special requests: [] Specific Issue/Plans Covid status: [] Flu vaccine: [] Tdap vaccine: declines Rhogam: given 12/08/24 LARC form signed: yes Problem list reviewed and updated with the most current plan of care details and appropriate orders placed. Relevant counseling for the gestational age provided. Continue routine care and follow up unless otherwise noted in visit notes/problem list details Initial Weight: Not Recorded Date -?-?-?-?-?-?-?-?-?-?-?-?- EGA Weight BP Urine Prot -?-?-?-?-?-?-?-?-?-?-?-?- Glucose FHR FuHt Pres Dilation -?-?-?-?-?-?-?-?-?-?-?-?- Effaced St Visit Note 07/30/24 -?-?-?-?-?-?-?-?-?-?-?-?- 9w 4d 138 lb 4 oz 132/83 -?-?-?-?-?-?-?-?-?-?-?-?- 172 -?-?-?-?-?-?-?-?-?-?-?-?- KW- CRL cons wit h dates. Declines NIPT 08/26/24 -?-?-?-?-?-?-?-?-?-?-?-?- 13w 3d 141 lb 2 oz 134/84 Nega tive -?-?-?-?-?-?-?-?-?-?-?-?- Negative 160 -?-?-?-?-?-?-?-?-?-?-?-?- JV- nausea impro ving. wants to start with hospital anatomy scan. fhx amie [place]. discussed might need mfm ultrasound if any abnormalities. declines genetic or AFP as discussed at last visit. 09/23/24 -?-?-?-?-?-?-?-?-?-?-?-?- 17w 3d 146 lb 8 oz 114/79 Nega tive -?-?-?-?-?-?-?-?-?-?-?-?- Negative 155 -?-?-?-?-?-?-?-?-?-?-?-?- KW- no vb/crampi ng. possible movement. KW- no vb/cramping. possible movement. US was ordered but not yet scheduled. she will call to get this done. 10/19/24 -?-?-?-?-?-?-?-?-?-?-?-?- 21w 1d 147 lb 8 oz 114/72 Nega tive -?-?-?-?-?-?-?-?-?-?-?-?- Negative 161 22 -?-?-?-?-?-?-?-?-?-?-?-?- JV- no lof, vagi nal bleeding, or cramping. normal anatomy scan. it's a girl!!! 11/18/24 -?-?-?-?-?-?-?-?-?-?-?-?- 25w 3d 151 lb 8 oz 119/73 -?-?-?-?-?-?-?-?-?-?-?-?- 145 25 -?-?-?-?-?-?-?-?-?-?-?-?- KW- no vb/lof/ct x. good fm. glucose given. 12/08/24 -?-?-?-?-?-?-?-?-?-?-?-?- 28w 2d 155 lb 8 oz 124/76 Nega tive -?-?-?-?-?-?-?-?-?-?-?-?- Negative 164 28 -?-?-?-?-?-?-?-?-?-?-?-?- MH-No Vb, LOF. G ood FM. Larc. 28 wk labs pending. Rhogam given. Declines tdap 12/23/24 -?-?-?-?-?-?-?-?-?-?-?-?- 30w 3d 157 lb 6 oz 112/68 Trac e -?-?-?-?-?-?-?-?-?-?-?-?- Negative 145 30 -?-?-?-?-?-?-?-?-?-?-?-?- KW- no vb/lof/ct x. good fm. started Iron supplement. no concerns 01/05/25 -?-?-?-?-?-?-?-?-?-?-?-?- 32w 2d 157 lb 136/84 Negative -?-?-?-?-?-?-?-?-?-?-?-?- Negative 150 33 -?-?-?-?-?-?-?-?-?-?-?-?- JV- no lof, vagi nal bleeding, or dec fm . bp is mildly elevated for her but within normal range. no headaches or visual changes. she states that this happened to her last . will watch closely. 01/20/25 -?-?-?-?-?-?-?-?-?-?-?-?- 34w 3d 161 lb 7 oz 128/81 Nega tive -?-?-?-?-?-?-?-?-?-?-?-?- Negative 145 35 -?-?-?-?-?-?-?-?--?-?-?-?- JV- bp better an d asymptomatic. no lof, vaginal bleeding, or dec fm. 02/04/25 -?-?-?-?-?-?-?-?-?-?-?-?- 36w 4d 164 lb 5 oz 133/84 Nega tive -?-?-?-?-?-?-?-?-?-?-?-?- Negative 145 36 Cephalic 1 -?-?-?-?-?-?-?-?-?-?-?-?- 40 -2 KW- no vb/ lof/ctx. good fm. GBS today. feeling well. ACOG First Trimester First Trimester: Discussed Second Trimester Second Trimester: Signs and Symptoms of Labor, Selecting a care provider, Reproductive Life Planning & Contreception, Care Planning, Depression/Anxiety and Intimate Partner Violence; Discussed Tobacco Cessation Third Trimester Third Trimester: Pain Management Plans, Labor support person(s), Immediate Larc, Signs and Symptoms of Preeclampsia, Infant Feeding No , Education, Family Medical Leave or Disability Forms and Intimate Partner Violence ROS Const Reports system reviewed and no additional complaints, except as documented Eyes Reports system reviewed and no additional complaints, except as documented ENT Reports system reviewed and no additional complaints, except as documented Card Reports system reviewed and no additional complaints, except as documented Resp Reports system reviewed and no additional complaints, except as documented GI Reports system reviewed and no additional complaints, except as documented, Denies nausea and Denies vomiting Reports system reviewed and no additional complaints, except as documented Musc Reports system reviewed and no additional complaints, except as documented Skin/Breast Reports system reviewed and no additional complaints, except as documented Neuro Yes system reviewed and no additional complaints, except as documented Psych Reports system reviewed and no additional complaints, except as documented Endo Reports system reviewed and no additional complaints, except as documented Tommy/Lymph Reports system reviewed and no additional complaints, except as documented Aller/Immun Reports system reviewed and no additional complaints, except as documented Exam Const General: cooperative, healthy appearing and no acute distress Orientation: alert, awake and oriented x3 Neck Neck: normal visual inspection and full ROM Resp Effort & Inspection: normal respiratory effort, able to speak in complete sentences and symmetric chest movement GI Inspection: normal to inspection Palpation: soft and other Other: gravid Skin General: no rashes or lesions noted Neuro General: patient alert, patient awake and patient oriented x3 Cognition: normal cognition Speech: speech normal Gait: normal gait Motor: muscle tone normal throughout Extrem General: normal to inspection and full ROM Psych Appearance: grossly normal Mental Status: mental status grossly normal Mood: congruent mood Affect: normal affect Speech and Movement: speech and movement normal Attitude: cooperative Thought Process: normal Thought Content: normal Judgment: judgment good Results POC Urinalysis 2 Dip (Clinic) Office Urine Glucose Negative Last Edit by Parvin Dangelo on 02/04/25 11:24 Office Urine Protein Negative Last Edit by Parvin Dangelo on 02/04/25 11:24 Coding Level of Care Code OB Routine Diagnoses Supervision of high risk in third trimester O09.93 Trimester: third trimester 36 weeks gestation of Z3A.36 Weeks of gestation: 36 weeks Rh negative state in antepartum period O26.899; 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 Assessment and Plan Assessment and Plan (1) Supervision of high-risk : Status: Acute Qualifiers: Trimester: third trimester Qualified Code(s): O09.93 - Supervision of high risk , unspecified, third trimester Comment: PRR , LAURA 02/28/25, Sally Dhillon, Yousif (2) : Status: Acute Qualifiers: Weeks of gestation: 36 weeks Qualified Code(s): Z3A.36 - 36 weeks gestation of Comment: declined genetic & carrier testing (3) Rh negative state in antepartum period: Status: Acute Comment: O-, Rhogam @ 28 wks & PRN Bleeding, Given 12/08/24 (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 Anatomy scan normal. Declined genetic testing. Orders: Orders POC Urinalysis 2 Dip (Clinic) Today Culture, Group B Streptococcus Today O09.93 - Supervision of high risk , unspecified, third trimester, Z3A.36 - 36 weeks gestation of Plan Details Additional Comments: ACOG trimester education reviewed and updated. see problem list details for updated plan management information and see below for orders placed at this visit. GA appropriate handout given. 02/04/25 1134 <Electronically signed by Ness gracia CNM> Date _ Ness Dowd CNM Cosigner Signature: Date (if applicable) CC: ~ [facility] Work Phone: Reason for referral (narrative)No reason for referral information availableWSt. Mary's [facility] Work Phone: Summary Purpose Family History Relationship Condition Age at Onset Recorded Date/T monisha sister Dandy-Walker malformation Unknown Advance Directives No Advanced Directives Records FoundNo Advanced Directives Records Found Chief Complaint and Reason for Visit Chief Complaint Admit Date NOB LMP 05/24July 30, 2024 8:49am Reason for Visit Admit Date Dandy Walker malformation July 30, 2024 8:49am July 30, 2024 8:49am Rh negative state in antepartum period F [facility] 2024 8:49am Supervision of high-risk Febru [email or web address] 8:49am Chief Complaint Admit Date NOB LMP 05/24July 30, 2024 8:49am 13wk OB August 26, 2024 8:4 9am 18wk ob September 23, 2024 11: 25am CERVICAL LENGTH October 12, 2024 3:08p m Reason for Visit Admit Date Dandy Walker malformation July 30, 2024 8:49am July 30, 2024 8:49am Rh negative state in antepartum period F [facility] 2024 8:49am Supervision of high-risk Febru 2024 8:49am Dandy Walker malformation August 26 8:49am August 26, 2024 8:4 9am Rh negative state in antepartum period [facility] 2024 8:49am Supervision of high-risk August 26, 2024 8:49am Dandy Walker malformation September 23 11:25am September 23, 2024 11: 25am Rh negative state in antepartum period A [facility] 2024 11:25am Supervision of high-risk September 23, 2024 11:25am Chief Complaint Admit Date NOB LMP 05/24July 30, 2024 8:49am 13wk OB August 26, 2024 8:4 9am 18wk ob September 23, 2024 11: 25am CERVICAL LENGTH October 12, 2024 3:08p m 22wk ob October 19, 2024 10:46 am Reason for Visit Admit Date Dandy Walker malformation July 30, 2024 8:49am July 30, 2024 8:49am Rh negative state in antepartum period F [facility] 2024 8:49am Supervision of high-risk Febru [email or web address] 8:49am Dandy Walker malformation August 26 8:49am August 26, 2024 8:4 9am Rh negative state in antepartum period [facility] 2024 8:49am Supervision of high-risk August 26, 2024 8:49am Dandy Walker malformation September 23 11:25am September 23, 2024 11: 25am Rh negative state in antepartum period A pril 2024 11:25am Supervision of high-risk September 23, 2024 11:25am Dandy Walker malformation October 19, 2024 10:46am October 19, 2024 10:46 am Rh negative state in antepartum period M ay 2024 10:46am Supervision of high-risk October 012024 10:46am Chief Complaint Admit Date NOB LMP 05/24July 30, 2024 8:49am 13wk OB August 26, 2024 8:4 9am 18wk ob September 23, 2024 11: 25am CERVICAL LENGTH October 12, 2024 3:08p m 22wk ob October 19, 2024 10:46 am 26 wk ob November 18, 2024 7:47 am Reason for Visit Admit Date Dandy Walker malformation July 30, 2024 8:49am July 30, 2024 8:49am Rh negative state in antepartum period F ebruary 2024 8:49am Supervision of high-risk Febru josse 2024 8:49am Dandy Walker malformation August 26 8:49am August 26, 2024 8:4 9am Rh negative state in antepartum period M arch 2024 8:49am Supervision of high-risk August 26, 2024 8:49am Dandy Walker malformation September 23 11:25am September 23, 2024 11: 25am Rh negative state in antepartum period A pril 2024 11:25am Supervision of high-risk September 23, 2024 11:25am Dandy Walker malformation October 19, 2024 10:46am October 19, 2024 10:46 am Rh negative state in antepartum period M ay 2024 10:46am Supervision of high-risk October 012024 10:46am 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 18 7:47am November 18, 2024 7:47 am Rh negative state in antepartum period J une 2024 7:47am Supervision of high-risk November 18, 2024 7:47am Chief Complaint Admit Date 13wk OB August 26, 2024 8:4 9am 18wk ob September 23, 2024 11: 25am CERVICAL LENGTH October 12, 2024 3:08p m 22wk ob October 19, 2024 10:46 am 26 wk ob November 18, 2024 7:47 am 28 wk ob December 08, 2024 1:19p m Reason for Visit Admit Date Dandy Walker malformation August 26 8:49am August 26, 2024 8:4 9am Rh negative state in antepartum period M arch 2024 8:49am Supervision of high-risk August 26, 2024 8:49am Dandy Walker malformation September 23 11:25am September 23, 2024 11: 25am Rh negative state in antepartum period A pril 2024 11:25am Supervision of high-risk September 23, 2024 11:25am Dandy Walker malformation October 19, 2024 10:46am October 19, 2024 10:46 am Rh negative state in antepartum period M ay 2024 10:46am Supervision of high-risk October 012024 10:46am 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 18 7:47am November 18, 2024 7:47 am Rh negative state in antepartum period J une 2024 7:47am Supervision of high-risk November 18, 2024 7:47am Dandy Walker malformation December 08, 2024 1:19pm December 08, 2024 1:19p m Rh negative state in antepartum period J wojciech 2024 1:19pm Supervision of high-risk December 08, 2024 1:19pm Chief Complaint Admit Date 13wk OB August 26, 2024 8:4 9am 18wk ob September 23, 2024 11: 25am CERVICAL LENGTH October 12, 2024 3:08p m 22wk ob October 19, 2024 10:46 am 26 wk ob November 18, 2024 7:47 am 28 wk ob December 08, 2024 1:19p m 30 wk ob December 23, 2024 8:43 am Reason for Visit Admit Date Dandy Walker malformation August 26 8:49am August 26, 2024 8:4 9am Rh negative state in antepartum period M arch 2024 8:49am Supervision of high-risk August 26, 2024 8:49am Dandy Walker malformation September 23 11:25am September 23, 2024 11: 25am Rh negative state in antepartum period A pril 2024 11:25am Supervision of high-risk September 23, 2024 11:25am Dandy Walker malformation October 19, 2024 10:46am October 19, 2024 10:46 am Rh negative state in antepartum period M ay 2024 10:46am Supervision of high-risk October 012024 10:46am 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 18 7:47am November 18, 2024 7:47 am Rh negative state in antepartum period J [facility] 2024 7:47am Supervision of high-risk November 18, 2024 7:47am Dandy Walker malformation December 08, 2024 1:19pm December 08, 2024 1:19p m Rh negative state in antepartum period J [facility] 2024 1:19pm Supervision of high-risk December 08, 2024 1:19pm Dandy Walker malformation December 23 8:43am December 23, 2024 8:43 am Rh negative state in antepartum period J wojciech 2024 8:43am Supervision of high-risk December 23, 2024 8:43am Chief Complaint Admit Date 18wk ob September 23, 2024 11: 25am CERVICAL LENGTH October 12, 2024 3:08p m 22wk ob October 19, 2024 10:46 am 26 wk ob November 18, 2024 7:47 am 28 wk ob December 08, 2024 1:19p m 30 wk ob December 23, 2024 8:43 am 32wk ob January 05, 2025 3:5 7pm Reason for Visit Admit Date Dandy Walker malformation September 23 11:25am September 23, 2024 11: 25am Rh negative state in antepartum period A pril 2024 11:25am Supervision of high-risk September 23, 2024 11:25am Dandy Walker malformation October 19, 2024 10:46am October 19, 2024 10:46 am Rh negative state in antepartum period M ay 2024 10:46am Supervision of high-risk October 012024 10:46am 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 18 7:47am November 18, 2024 7:47 am Rh negative state in antepartum period J une 2024 7:47am Supervision of high-risk November 18, 2024 7:47am Dandy Walker malformation December 08, 2024 1:19pm December 08, 2024 1:19p m Rh negative state in antepartum period J wojciech 2024 1:19pm Supervision of high-risk December 08, 2024 1:19pm Dandy Walker malformation December 23 8:43am December 23, 2024 8:43 am Rh negative state in antepartum period J wojciech 2024 8:43am Supervision of high-risk December 23, 2024 8:43am Dandy Walker malformation January 05 3:57pm January 05, 2025 3:5 7pm Rh negative state in antepartum period A ugust 2024 3:57pm Supervision of high-risk Augus t 2024 3:57pm Chief Complaint Admit Date 18wk ob September 23, 2024 11: 25am CERVICAL LENGTH October 12, 2024 3:08p m 22wk ob October 19, 2024 10:46 am 26 wk ob November 18, 2024 7:47 am 28 wk ob December 08, 2024 1:19p m 30 wk ob December 23, 2024 8:43 am 32wk ob January 05, 2025 3:5 7pm 34wk ob January 20, 2025 10 :23am Reason for Visit Admit Date Dandy Walker malformation September 23 11:25am September 23, 2024 11: 25am Rh negative state in antepartum period A pril 2024 11:25am Supervision of high-risk September 23, 2024 11:25am Dandy Walker malformation October 19, 2024 10:46am October 19, 2024 10:46 am Rh negative state in antepartum period M ay 2024 10:46am Supervision of high-risk October 012024 10:46am 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 18 7:47am November 18, 2024 7:47 am Rh negative state in antepartum period J une 2024 7:47am Supervision of high-risk November 18, 2024 7:47am Dandy Walker malformation December 08, 2024 1:19pm December 08, 2024 1:19p m Rh negative state in antepartum period J wojciech 2024 1:19pm Supervision of high-risk December 08, 2024 1:19pm Dandy Walker malformation December 23 8:43am December 23, 2024 8:43 am Rh negative state in antepartum period J wojciech 2024 8:43am Supervision of high-risk December 23, 2024 8:43am Dandy Walker malformation January 05 3:57pm January 05, 2025 3:5 7pm Rh negative state in antepartum period A ug2024 3:57pm Supervision of high-risk Augus t 2024 3:57pm Dandy Walker malformation January 20, 2 025 10:23am January 20, 2025 10 :23am Rh negative state in antepartum period A ugust 2024 10:23am Supervision of high-risk Augus t 2024 10:23am Chief Complaint Admit Date CERVICAL LENGTH October 12, 2024 3:08p m 22wk ob October 19, 2024 10:46 am 26 wk ob November 18, 2024 7:47 am 28 wk ob December 08, 2024 1:19p m 30 wk ob December 23, 2024 8:43 am 32wk ob January 05, 2025 3:5 7pm 34wk ob January 20, 2025 10 :23am 36wk ob February 04, 2025 11:16am Reason for Visit Admit Date Dandy Walker malformation October 19, 2024 10:46am October 19, 2024 10:46 am Rh negative state in antepartum period M ay 2024 10:46am Supervision of high-risk October 012024 10:46am 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 18 7:47am November 18, 2024 7:47 am Rh negative state in antepartum period J une 2024 7:47am Supervision of high-risk November 18, 2024 7:47am Dandy Walker malformation December 08, 2024 1:19pm December 08, 2024 1:19p m Rh negative state in antepartum period J 2024 1:19pm Supervision of high-risk December 08, 2024 1:19pm Dandy Walker malformation December 23 8:43am December 23, 2024 8:43 am Rh negative state in antepartum period J wojciech 2024 8:43am Supervision of high-risk December 23, 2024 8:43am Dandy Walker malformation January 05 3:57pm January 05, 2025 3:5 7pm Rh negative state in antepartum period A 2024 3:57pm Supervision of high-risk Augus t 2024 3:57pm Dandy Walker malformation January 20, 025 10:23am January 20, 2025 10 :23am Rh negative state in antepartum period A ugust 2024 10:23am Supervision of high-risk Augus t 2024 10:23am Dandy Walker malformation February 04, 2025 11:16am February 04, 2025 11:16am Rh negative state in antepartum period S eptember 2024 11:16am Supervision of high-risk Septe mber 2024 11:16am Additional Source Comments INFORMATION SOURCE (unrecogn ized section and content) DATE CREATED AUTHOR 03/30/2020 [facility] DATE CREATED AUTHOR AUTHOR'S CHANOIZ ATION 01/22/2025 [facility] Care Teams (unrecognized sec tion and content) Team Status: Active Member Role Status Dates Dr. Faby Griggs DO Family Provider Active Dr. Faby Griggs DO Primary Care Provider Active Team Status: Inactive Member Role Status Dates Dr. Faby Griggs DO Primary Care Provider Active Start: July 30, 2024 End: July 30, 2024 Dr. Faby Griggs DO Referring Provider Active St art: July 30, 2024 End: July 30, 2024 Ness Dowd CNM Attending Provider Active S tart: July 30, 2024 End: July 30, 2024 Team Status: Inactive Member Role Status Dates Dr. Faby Griggs DO Primary Care Provider Active Start: July 30, 2024 End: July 30, 2024 Ness Dowd CNM Attending Provider Active S tart: July 30, 2024 End: July 30, 2024 Ness Dowd CNM Referring Provider Active S tart: July 30, 2024 End: July 30, 2024 Team Status: Active Member Role Status Dates Dr. Faby Griggs DO Primary Care Provider Active Team Status: Inactive Member Role Status Dates Dr. Faby Griggs DO Primary Care Provider Active Start: August 26, 2024 End: August 26, 2024 Dr. Faby Griggs DO Referring Provider Active St art: August 26, 2024 End: August 26, 2024 Dr. Mari Rockwell DO Attending Provider Activ e Start: August 26, 2024 End: August 26, 2024 Team Status: Inactive Member Role Status Dates Dr. Faby Griggs DO Primary Care Provider Active Start: September 23, 2024 End: September 23, 2024 Dr. Faby Griggs DO Referring Provider Active St art: September 23, 2024 End: September 23, 2024 Ness Dowd CNM Attending Provider Active S tart: September 23, 2024 End: September 23, 2024 Team Status: Inactive Member Role Status Dates Dr. Faby Griggs DO Primary Care Provider Active Start: October 12, 2024 End: October 12, 2024 Dr. Mari Rockwell DO Attending Provider Activ e Start: October 12, 2024 End: October 12, 2024 Dr. Mari Rockwell DO Referring Provider Activ e Start: October 12, 2024 End: October 12, 2024 Team Status: Inactive Member Role Status Dates Dr. Faby Griggs DO Primary Care Provider Active Start: October 19, 2024 End: October 19, 2024 Dr. Faby Griggs DO Referring Provider Active St art: October 19, 2024 End: October 19, 2024 Dr. Mari Rockwell DO Attending Provider Activ e Start: October 19, 2024 End: October 19, 2024 Team Status: Inactive Member Role Status Dates Dr. Faby Griggs DO Primary Care Provider Active Start: November 18, 2024 End: November 18, 2024 Dr. Faby Griggs DO Referring Provider Active St art: November 18, 2024 End: November 18, 2024 Ness Dowd CNM Attending Provider Active S tart: November 18, 2024 End: November 18, 2024 Team Status: Active Member Role/Relationship Status Dates Dr. Faby Griggs DO Primary Care Provider Active Team Status: Inactive Member Role/Relationship Status Dates Dr. Faby Griggs DO Primary Care Provider Active Start: August 26, 2024 End: August 26, 2024 Dr. Faby Griggs DO Referring Provider Active St art: August 26, 2024 End: August 26, 2024 Dr. Mari Rockwell DO Attending Provider Activ e Start: August 26, 2024 End: August 26, 2024 Team Status: Inactive Member Role/Relationship Status Dates Dr. Faby Griggs DO Primary Care Provider Active Start: September 23, 2024 End: September 23, 2024 Dr. Faby Griggs DO Referring Provider Active St art: September 23, 2024 End: September 23, 2024 Ness Dowd CNM Attending Provider Active S tart: September 23, 2024 End: September 23, 2024 Team Status: Inactive Member Role/Relationship Status Dates Dr. Faby Griggs DO Primary Care Provider Active Start: October 12, 2024 End: October 12, 2024 Dr. Mari Rockwell DO Attending Provider Activ e Start: October 12, 2024 End: October 12, 2024 Dr. Mari Rockwell DO Referring Provider Activ e Start: October 12, 2024 End: October 12, 2024 Team Status: Inactive Member Role/Relationship Status Dates Dr. Faby Griggs DO Primary Care Provider Active Start: October 19, 2024 End: October 19, 2024 Dr. Faby Griggs DO Referring Provider Active St art: October 19, 2024 End: October 19, 2024 Dr. Mari Rockwell DO Attending Provider Activ e Start: October 19, 2024 End: October 19, 2024 Team Status: Inactive Member Role/Relationship Status Dates Dr. Faby Griggs DO Primary Care Provider Active Start: November 18, 2024 End: November 18, 2024 Dr. Faby Griggs DO Referring Provider Active St art: November 18, 2024 End: November 18, 2024 Ness Dowd CNM Attending Provider Active S tart: November 18, 2024 End: November 18, 2024 Team Status: Inactive Member Role/Relationship Status Dates Dr. Faby Griggs DO Primary Care Provider Active Start: December 08, 2024 End: December 08, 2024 Dr. Faby Griggs DO Referring Provider Active St art: December 08, 2024 End: December 08, 2024 Randi Glover AVIATION MAINTENANCE INSTRUCTOR, AVIATION MAINTENANCE INSTRUCTOR-C Attending Provider Active Start: December 08, 2024 End: December 08, 2024 Team Status: Active Member Role/Relationship Status Dates Dr. Faby Griggs DO Primary Care Provider Active Start: December 08, 2024 Dr. Mari Rockwell DO Attending Provider Activ e Start: December 08, 2024 Dr. Mari Rockwell DO Referring Provider Activ e Start: December 08, 2024 Team Status: Inactive Member Role/Relationship Status Dates Dr. Faby Griggs DO Primary Care Provider Active Start: December 08, 2024 End: December 08, 2024 Dr. Mari Rockwell DO Attending Provider Activ e Start: December 08, 2024 End: December 08, 2024 Dr. Mari Rockwell DO Referring Provider Activ e Start: December 08, 2024 End: December 08, 2024 Team Status: Inactive Member Role/Relationship Status Dates Dr. Faby Griggs DO Primary Care Provider Active Start: December 23, 2024 End: December 23, 2024 Dr. Faby Griggs DO Referring Provider Active St art: December 23, 2024 End: December 23, 2024 Ness Dowd CNM Attending Provider Active S tart: December 23, 2024 End: December 23, 2024 Team Status: Inactive Member Role/Relationship Status Dates Dr. Faby Griggs DO Primary Care Provider Active Start: September 23, 2024 End: September 23, 2024 Dr. Faby Griggs DO Referring Provider Active St art: September 23, 2024 End: September 23, 2024 Ness Dowd CNM Attending Provider Active S tart: September 23, 2024 End: September 23, 2024 Team Status: Inactive Member Role/Relationship Status Dates Dr. Faby Griggs DO Primary Care Provider Active Start: October 12, 2024 End: October 12, 2024 Dr. Mari Rockwell DO Attending Provider Activ e Start: October 12, 2024 End: October 12, 2024 Dr. Mari Rockwell DO Referring Provider Activ e Start: October 12, 2024 End: October 12, 2024 Team Status: Inactive Member Role/Relationship Status Dates Dr. Faby Griggs DO Primary Care Provider Active Start: October 19, 2024 End: October 19, 2024 Dr. Faby Griggs DO Referring Provider Active St art: October 19, 2024 End: October 19, 2024 Dr. Mari Rockwell DO Attending Provider Activ e Start: October 19, 2024 End: October 19, 2024 Team Status: Inactive Member Role/Relationship Status Dates Dr. Faby Griggs DO Primary Care Provider Active Start: November 18, 2024 End: November 18, 2024 Dr. Faby Griggs DO Referring Provider Active St art: November 18, 2024 End: November 18, 2024 Ness Dowd CNM Attending Provider Active S tart: November 18, 2024 End: November 18, 2024 Team Status: Inactive Member Role/Relationship Status Dates Dr. Faby Griggs DO Primary Care Provider Active Start: December 08, 2024 End: December 08, 2024 Dr. Faby Griggs DO Referring Provider Active St art: December 08, 2024 End: December 08, 2024 Randi Glover NP, AVIATION MAINTENANCE INSTRUCTOR-C Attending Provider Active Start: December 08, 2024 End: December 08, 2024 Team Status: Inactive Member Role/Relationship Status Dates Dr. Faby Griggs DO Primary Care Provider Active Start: December 08, 2024 End: December 08, 2024 Dr. Mari Rockwell , DO Attending Provider Activ e Start: December 08, 2024 End: December 08, 2024 Dr. Mari Rockwell DO Referring Provider Activ e Start: December 08, 2024 End: December 08, 2024 Team Status: Inactive Member Role/Relationship Status Dates Dr. Faby Griggs DO Primary Care Provider Active Start: December 23, 2024 End: December 23, 2024 Dr. Faby Griggs DO Referring Provider Active St art: December 23, 2024 End: December 23, 2024 Ness Dowd CNM Attending Provider Active S tart: December 23, 2024 End: December 23, 2024 Team Status: Inactive Member Role/Relationship Status Dates Dr. Faby Griggs DO Primary Care Provider Active Start: January 05, 2025 End: January 05, 2025 Dr. Faby Griggs DO Referring Provider Active St art: January 05, 2025 End: January 05, 2025 Dr. Mari Rockwell DO Attending Provider Activ e Start: January 05, 2025 End: January 05, 2025 Team Status: Inactive Member Role/Relationship Status Dates Dr. Faby Griggs DO Primary Care Provider Active Start: January 20, 2025 End: January 20, 2025 Dr. Faby Griggs DO Referring Provider Active St art: January 20, 2025 End: January 20, 2025 Dr. Mari Rockwell DO Attending Provider Activ e Start: January 20, 2025 End: January 20, 2025 Team Status: Inactive Member Role/Relationship Status Dates Dr. Faby Griggs DO Primary Care Provider Active Start: October 12, 2024 End: October 12, 2024 Dr. Mari Rockwell DO Attending Provider Activ e Start: October 12, 2024 End: October 12, 2024 Dr. Mari Rockwell DO Referring Provider Activ e Start: October 12, 2024 End: October 12, 2024 Team Status: Inactive Member Role/Relationship Status Dates Dr. Faby Griggs DO Primary Care Provider Active Start: October 19, 2024 End: October 19, 2024 Dr. Faby Griggs , Referring Provider Active St art: October 19, 2024 End: October 19, 2024 Dr. Mari Rockwell DO Attending Provider Activ e Start: October 19, 2024 End: October 19, 2024 Team Status: Inactive Member Role/Relationship Status Dates Dr. Faby Griggs DO Primary Care Provider Active Start: November 18, 2024 End: November 18, 2024 Dr. Faby Griggs DO Referring Provider Active St art: November 18, 2024 End: November 18, 2024 Ness Dowd CNM Attending Provider Active S tart: November 18, 2024 End: November 18, 2024 Team Status: Inactive Member Role/Relationship Status Dates Dr. Faby Griggs DO Primary Care Provider Active Start: December 08, 2024 End: December 08, 2024 Dr. Faby Griggs DO Referring Provider Active St art: December 08, 2024 End: December 08, 2024 Randi Glover NP, AVIATION MAINTENANCE INSTRUCTOR-C Attending Provider Active Start: December 08, 2024 End: December 08, 2024 Team Status: Inactive Member Role/Relationship Status Dates Dr. Faby Griggs DO Primary Care Provider Active Start: December 08, 2024 End: December 08, 2024 Dr. Mari Rockwell DO Attending Provider Activ e Start: December 08, 2024 End: December 08, 2024 Dr. Mari Rockwell DO Referring Provider Activ e Start: December 08, 2024 End: December 08, 2024 Team Status: Inactive Member Role/Relationship Status Dates Dr. Faby Griggs DO Primary Care Provider Active Start: December 23, 2024 End: December 23, 2024 Dr. Faby Griggs DO Referring Provider Active St art: December 23, 2024 End: December 23, 2024 Ness Dowd CNM Attending Provider Active S tart: December 23, 2024 End: December 23, 2024 Team Status: Inactive Member Role/Relationship Status Dates Dr. Faby Griggs DO Primary Care Provider Active Start: January 05, 2025 End: January 05, 2025 Dr. Faby Griggs DO Referring Provider Active St art: January 05, 2025 End: January 05, 2025 Dr. Mari Rockwell DO Attending Provider Activ e Start: January 05, 2025 End: January 05, 2025 Team Status: Inactive Member Role/Relationship Status Dates Dr. Faby Griggs DO Primary Care Provider Active Start: January 20, 2025 End: January 20, 2025 Dr. Faby Griggs DO Referring Provider Active St art: January 20, 2025 End: January 20, 2025 Dr. Mari Rockwell DO Attending Provider Activ e Start: January 20, 2025 End: January 20, 2025 Team Status: Inactive Member Role/Relationship Status Dates Dr. Faby Griggs DO Primary Care Provider Active Start: February 04, 2025 End: February 04, 2025 Dr. Faby Griggs DO Referring Provider Active St art: February 04, 2025 End: February 04, 2025 Ness Dowd CNM Attending Provider Active S tart: February 04, 2025 End: February 04, 2025 Goals (unrecognized section and content) Goals may be documented in a n alternate sectionGoals may be documented in an alternate sectionGoals may be documented in an alternate sectionGoals may be documented in an alternate sectionGoals may be documented in an alternate sectionGoals may be documented in an alternate sectionGoals may be documented in an alternate sectionGoals may be documented in an alternate sectionGoals may be documented in an alternate sectionGoals may be documented in an alternate section FOR RECORDS PERTAINING TO PATIENTS WHO ARE OR HAVE BEEN ENROLLED IN A CHEMICAL DEPENDENCY/SUBSTANCEABUSE PROGRAM, SOME INFORMATION MAY BE OMITTED. This clinical summary was aggregated from multiple sources. Caution should be exercised in using it in the provision of clinical care. This summary normalizes information from multiple sources, and as a consequence, information in this document may materially change the coding, format and clinical context of patient data. In addition, data may be omitted in some cases. CLINICAL DECISIONS SHOULD BE BASED ON THE PRIMARY CLINICAL RECORDS. [employer] provides no warranty or guarantee of the accuracy or completeness of information in this document.
== END | disposition home or self-care (01) ==
LOC: LABSPEC 15:08
PROVIDERS: PCP Family Medicine; Visit Provider Advanced Practice Midwife
DX: O09.93 Supervision of high risk pregnancy, unspecified, third trimester (principal); Z3A.36 36 weeks gestation of pregnancy
CPT/HCPCS: 87081

== ENCOUNTER 2025-02-11 10:25 | Outpatient (CLI) | payer OTHER, SELFPAY ==
[2025-02-11] VITALS (8 sets, daily range): BP systolic 114–136; BP diastolic 68–75; PULSE 90–102; RESP 16; TEMP 36.5; BMI 30.1
[2025-02-11 11:05] LABS: Hematocrit 32.6 % (37-47); Hemoglobin 11.4 g/dL (12.0-15.0); Mean Corp Hgb Conc 35.0 g/dL (32-36); Mean Corpuscular Volume 92.6 fL (81-99); Mean Platelet Vol. 10.7 fl (6.2-12.0); Platelet Count 157 K/mm3 (150-450); RBC Distribution Width CV 13.2 % (11.6-14.6); RBC Distribution Width SD 44.2 fl (35.1-43.9); Red Blood Count 3.52 M/mm3 (4.2-5.4); White Blood Count 9.0 K/mm3 (4.4-11.0)
[2025-02-11 11:14] LABS: Creatinine, Urine (random) 76.20 mg/dL (28.00-217.00); Protein, Urine (Random) 7.1 mg/dL (0.0-12.0); Protein:Creat Ratio 94 mg/g CRE (0-200)
[2025-02-11 11:48] LABS: AST(SGOT) 18 U/L (<=31); Alanine Aminotransfer ALT/SGPT 14 U/L (<=34); Estimated Creatinine Clearance 167.79 ml/min (50-250); Uric Acid 3.5 mg/dL (2.6-6.0)
--- NOTE | 2025-02-13 01:23 | OB.TRI.PN ---
Progress Notes Date of Service: 02/11/25 Progress Note: Patient presents for triage evaluation secondary to elevated bps FHT: 135 Moderate variability reactive no decelerations category I tracing [place]: no regular Contractions Assessment and plan: 37 weeks elevate dbps repeat WNLas scheduled Reactive NST, reassuring maternal and status patient discharged to home to follow-up []. See problem list details for additional plan information. Laboratory Studies: Laboratory Tests 02/11/25 02/11/25 Range/Units 10:55 10:39 WBC 9.0 (4.4-11.0) K/mm3 RBC 3.52 L (4.2-5.4) M/mm3 Hgb 11.4 L (12.0-15.0) g/dL Hct 32.6 L (37-47) % MCV 92.6 (81-99) fL MCH 32.4 H (27.0-32.0) pg MCHC 35.0 (32-36) g/dL RDW Std Deviation 44.2 H (35.1-43.9) fl RDW Coeff of Rosalio 13.2 (11.6-14.6) % Plt Count 157 (150-450) K/mm3 MPV 10.7 (6.2-12.0) fl Creatinine 0.46 L (0.70-1.20) mg/dL Estim Creat Clear Calc 167.79 (50-250) ml/min Est GFR (MDRD) Non-Af 131 (>60) Uric Acid 3.5 (2.6-6.0) mg/dL AST 18 (<=31) U/L ALT 14 (<=34) U/L U Random Total Protein 7.1 (0.0-12.0) mg/dL Urine Creatinine 76.20 (28.00-217.00) mg/dL Protein/Creatinin Ratio 94 (0-200) mg/g CRE Charges/Coding Procedures Urinary/Genital 52xxx-59xxx: [id number] non-stress test Interp
== END 2025-02-11 12:50 | disposition home or self-care (01) ==
LOC: WPOUT 10:42 → LABSPEC 10:43 → WPOUT 10:43 → WP 10:44
PROVIDERS: PCP Family Medicine; Referring Provider Obstetrics & Gynecology; Visit Provider Obstetrics & Gynecology
DX: O09.93 Supervision of high risk pregnancy, unspecified, third trimester (principal); O26.893 Other specified pregnancy related conditions, third trimester; Z67.91 Unspecified blood type, Rh negative; Z3A.37 37 weeks gestation of pregnancy; Z82.79 Family history of other congenital malformations, deformations and chromosomal abnormalities
CPT/HCPCS: 36415; 59050; 82565; 82570; 84156; 84450; 84460; 84550; 85027; 99221; G0378

== ENCOUNTER 2025-02-27 22:15 | Inpatient (IN) | payer SELFPAY, OTHER ==
[2025-02-27] VITALS (9 sets, daily range): BP systolic 81–136; BP diastolic 43–83; PULSE 73–167; RESP 16–19; TEMP 36.7–36.9; O2SAT 81–100; BMI 27.6
[2025-02-27 22:26] LABS: Hematocrit 31.9 % (37-47); Hemoglobin 10.9 g/dL (12.0-15.0); Immature Granulocytes Count 0.110 X10^3/uL (0.0-0.0); Mean Corp Hgb Conc 34.2 g/dL (32-36); Mean Corpuscular Volume 95.5 fL (81-99); Mean Platelet Vol. 11.6 fl (6.2-12.0); NRBC Flagged by Analyzer 0 % (0-5); Platelet Count 171 K/mm3 (150-450); RBC Distribution Width CV 13.6 % (11.6-14.6); RBC Distribution Width SD 47.2 fl (35.1-43.9); Red Blood Count 3.34 M/mm3 (4.2-5.4); White Blood Count 15.2 K/mm3 (4.4-11.0)
[2025-02-27 23:00] LABS: Syphilis Antibodies Nonreactive (Nonreactive)
--- NOTE | 2025-02-27 23:13 | PCM.HP.OB ---
HPI - General General Date of Admission: 02/27/25 Date of Service: 02/27/25 HPI Narrative JASWINDER WARE, is a 29 F G3, P2 who presents to labor and delivery this evening with heavy vaginal bleeding. She denied contractions or pain. She is due tomorrow by a 20-week ultrasound. She follows with Dr. Ospina. The patient indicates that she started having heavy vaginal bleeding about an hour before presentation. Patient's care was on remarkable with 2 prior routine vaginal births. Her sister has Dandy-Walker malformation. 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 Maternal Data Information LAURA Calculator Estimated Delivery Date Method Current WG Current Estimate 02/28/25 LMP (Certain) 39w 6d Other Estimates 02/25/25 Ultrasound #1 40w 2d Final LAURA Source: US <20 weeks Doctor Who Attended Delivery: Arlene Devlin [facility] Home Medications ?Medication ?Instructions ?Recorded ?Last Taken ?Type Cholecalciferol (Vitamin D3) 5,000 mg PO DAILY vitamin 06/16/20 06/15/20 21:00 History [Vitamin D3] multivit-min no.71-iron fum 28 1 cap PO DAILY 07/17/24 02/10/25 21:00 History mg-folate no.1 1 mg-dha 300 mg 1 cap capsule (PNV-Jefferson) ferrous sulfate 325 mg (65 mg 325 mg PO DAILY 02/11/25 02/09/25 15:52 History iron) tablet (Feosol) 325 mg Allergy/AdvReac Type Severity Reaction Status Date / Time No Known Allergies Allergy Verified 02/24/25 10:41 Family History Sister Dandy Walker malformation Social History adopted: No household members: spouse and children number of children: 2 current occupational status: unemployed current occupation: [employer] pets and animals: Yes pets and animals: dog(s), horse(s) and other details: Hens history of recent travel: No sexually active: Yes Smoking Status: Never smoker alcohol intake: never substance use type: does not use well-balanced diet: daily or most days caffeine: No eating out: rarely or never during the past year weight has: remained stable what type of physical activity do you participate in: none cheryl/bahai: [place] seatbelt use: sometimes do you feel safe at home: Yes 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 Date Name GA/Weeks Outcome Route Bth Weight Infant Gen Labor Lgth Anesthesia Del Locatn Provider FOB 03/16/17 Willy 40 live - full term 7lbs 4oz Male epidural [facility] Dr. Yoana Dodd 06/17/20 Sally 40 live - full term 7#6oz Male epidural [facility] Delivery Date: 03/16/17 Last Updated by: Kristen Zhong No issues during or delivery Visit Details Expected Delivery Route/Plan Labor Preferences- CB/BF classes: no labor support person: Yousif labor intervention preferences: [] pain management options preferred: epidural cut cord/dad catch: cord : yes but not usually successful PP control planned: discussed discussed possible routes of delivery and associated risks: [] special requests: [] Plans Covid status: [] Flu vaccine: [] Tdap vaccine: declines Rhogam: given 12/08/24 LARC form signed: yes movement and labor precautions reviewed. Problem list reviewed and updated with the most current plan of care details and appropriate orders placed. Relevant counseling for the gestational age provided. Continue routine care and follow up unless otherwise noted in visit notes/problem list details OB Flowsheet Initial Weight: Not Recorded Date <del>?</del> EGA Weight BP Urine Prot <del>?</del> Glucose FHR FuHt Pres Dilation <del>?</del> Effaced St Visit Note 07/30/24 <del>?</del> 9w 4d 138 lb 4 oz 132/83 <del>?</del> 172 <del>?</del> KW- CRL cons with dates. Declines NIPT 08/26/24 <del>?</del> 13w 3d 141 lb 2 oz 134/84 Negative <del>?</del> Negative 160 <del>?</del> JV- nausea improving. wants to start with hospital anatomy scan. fhx dandy-walker. discussed might need mfm ultrasound if any abnormalities. declines genetic or AFP as discussed at last visit. 09/23/24 <del>?</del> 17w 3d 146 lb 8 oz 114/79 Negative <del>?</del> Negative 155 <del>?</del> KW- no vb/cramping. possible movement. KW- no vb/cramping. possible movement. US was ordered but not yet scheduled. she will call to get this done. 10/19/24 <del>?</del> 21w 1d 147 lb 8 oz 114/72 Negative <del>?</del> Negative 161 22 <del>?</del> JV- no lof, vaginal bleeding, or cramping. normal anatomy scan. it's a girl!!! 11/18/24 <del>?</del> 25w 3d 151 lb 8 oz 119/73 <del>?</del> 145 25 <del>?</del> KW- no vb/lof/ctx. good fm. glucose given. 12/08/24 <del>?</del> 28w 2d 155 lb 8 oz 124/76 Negative <del>?</del> Negative 164 28 <del>?</del> MH-No Vb, LOF. Good FM. Larc. 28 wk labs pending. Rhogam given. Declines tdap 12/23/24 <del>?</del> 30w 3d 157 lb 6 oz 112/68 Trace <del>?</del> Negative 145 30 <del>?</del> KW- no vb/lof/ctx. good fm. started Iron supplement. no concerns 01/05/25 <del>?</del> 32w 2d 157 lb 136/84 Negative <del>?</del> Negative 150 33 <del>?</del> JV- no lof, vaginal bleeding, or dec fm . bp is mildly elevated for her but within normal range. no headaches or visual changes. she states that this happened to her last . will watch closely. 01/20/25 <del>?</del> 34w 3d 161 lb 7 oz 128/81 Negative <del>?</del> Negative 145 35 <del>?</del> JV- bp better and asymptomatic. no lof, vaginal bleeding, or dec fm. 02/04/25 <del>?</del> 36w 4d 164 lb 5 oz 133/84 Negative <del>?</del> Negative 145 36 Cephalic 1 <del>?</del> 40 -2 KW- no vb/lof/ctx. good fm. GBS today. feeling well. 02/11/25 <del>?</del> 37w 4d 165 lb 3 oz 154/91 149/97 Negative <del>?</del> Negative 140 37 Cephalic 1 <del>?</del> SM- no vb lof good fm no regular ctx no [place] BV to l and d for bp monitoring 02/18/25 <del>?</del> 38w 4d 165 lb 131/84 Negative <del>?</del> Negative 150 38 Cephalic 3 <del>?</del> 40 -3 KW- no vb/lof/ctx. good fm 02/24/25 <del>?</del> 39w 3d 166 lb 6 oz 146/86 132/82 Negative <del>?</del> Negative 140 38 Cephalic 3 <del>?</del> Sm- no vb lof good fm no reuglar ctx NST FHR Rate Baby A Baseline: Unable to locate heart tones Assessment Assessment Detail: 39+ week intrauterine with catastrophic abruption. No heart tones noted upon presentation with Doppler. Patient immediately moved to section room. Ultrasound in OR showed no heart present. Emergency primary section immediately performed with nonviable female infant noted. Vital Signs Vital Signs Vital Signs: 02/27/25 22:02/27/25 22:02/27/25 22:14 Temperature Temperature Source Pulse Rate 101 H 84 Respiratory Rate Blood Pressure BP Systolic BP Diastolic Pulse Ox 100 02/27/25 22:14 02/27/25 22:16 02/27/25 22:16 Temperature Temperature Source Oral Pulse Rate Respiratory Rate 16 Blood Pressure BP Systolic BP Diastolic Pulse Ox 100 02/27/25 22:16 02/27/25 22:17 02/27/25 22:17 Temperature 98.4 F Temperature Source Pulse Rate 73 Respiratory Rate Blood Pressure 81/43 L BP Systolic 81 BP Diastolic 43 Pulse Ox 02/27/25 22:19 02/27/25 22:19 Temperature Temperature Source Pulse Rate 98 Respiratory Rate Blood Pressure BP Systolic BP Diastolic Pulse Ox 100 Physical Exam Const alert, oriented x3 and no apparent distress General Appearance: cooperative Resp normal respiratory effort and no retractions Cardio regular rate and regular rhythm GI GI Narrative: Fundal size appropriate for gestational age Neuro no focal motor deficits Psych mental status grossly normal, affect normal and speech normal Labs Labs Labs: Blood Type O NEGATIVE Antibody Screen NEGATIVE Hct, (37-47) 31.9 % L Hgb, (12.0-15.0) 10.9 g/dL L Obstetrics Ultrasound Syphilis Total Ab, (Nonreactive) Nonreactive Rubella IgG Antibody, (Nonreactive) REAC Hep Bs Antigen, (Nonreactive) Nonreactive Hepatitis C Antibody, (Nonreactive) Nonreactive Hepatitis C Ab (EIA), (0.0-0.9) <0.1 s/co ratio Chlamydia DNA (JOSÉ LUIS), (Negative) Negative N.gonorrhoeae DNA (JOSÉ LUIS), (Negative) Negative HIV 1&2 Antibody, (Nonreactive) Nonreactive Glucose 1 Hr 50 gm, (70-140) 108 mg/dL Group B Strep DNA, (Negative) Negative Rhogam given: No Assessment & Plan (1) Placental abruption in third trimester: (2) delivery delivered: (3) demise affecting delivery: PLAN: Emergency section performed for catastrophic abruptio placenta at 39+ weeks gestation without complications. See operative note. PLAN: Plan Discussed cause of being placental abruption with the father of the baby. Permission given after 30 minutes to stop CPR. Supportive care given and all his questions were answered. Patient being moved to recovery room.
--- NOTE | 2025-02-27 23:25 | RAD_ITS ---
PROCEDURE: RAD/Abdomen Single View
--- NOTE | 2025-02-27 23:33 | EX.PCM.OBRPT ---
Maternal Data Information LAURA Calculator Estimated Delivery Date Method Current WG Current Estimate 02/28/25 LMP (Certain) 39w 6d Other Estimates 02/25/25 Ultrasound #1 40w 2d Operative Report (OB) Procedure Details Date of Procedure: 02/27/25 Procedure Start Time: 22:34 Procedure Stop Time: 23:20 Time of Delivery: 22:34 Pre-Operative Diagnosis: Suspected Abruptio Placenta and Distress Post-Operative Diagnosis: Same as Pre-operative diagnosis and Other Post-Operative Diag ( Demise) OTHER Post-Operative Diagnosis: Catastrophic Abruptio Placenta Classification: Stat Type of Anesthesia: General Antibiotic Given: Ancef 2 grams IV x1 Drain: Landeros to straight drain Estimated Blood Loss: 500 cc Findings Description of surgery: Surgeon: Todd Raymond MD Procedure: Primary Low Transverse Cervical Caesarean Section Findings: Non-viable female infant with Apgars of 0/0 in an occiput anterior presentation with clear amniotic fluid and three-vessel placenta. Approximately 500 cc of blood clot was noted to exit the uterus when the baby was delivered. Placenta was examined but the area of abruption was not evident. Cervix was dilated 4 cm. The fundus of the uterus was Couvelaire. Indication: This is a 29-year-old who presented to labor and delivery with heavy vaginal bleeding which started about an hour before presentation to labor and delivery. She was subsequently found to have absent heart tones with Doppler and after being moved to the section room, was noted to have no heart tones with ultrasound. care has otherwise been uneventful. I briefly discussed the gravity of the situation with the patient who agreed to immediately proceed with the section. Procedure: The patient was prepped and draped in usual sterile fashion and a Landeros catheter was placed. After general anesthesia was confirmed, the abdomen was prepped and then entered through a Pfannenstiel incision and peritoneum was entered bluntly. After developing a bladder flap on the lower uterine segment a low transverse incision was made on the uterus and head was easily delivered onto the operative field where umbilical cord was doubly clamped and ligated and immediately handed to the nursery personnel who were present for the delivery. Placenta was delivered and noted to be 3 vessels and normal except for approximately 500 cc of blood clot which came out of the uterus with the baby and placenta. Uterus was exteriorized and remaining placental tissue was removed. The uterus was then closed in 2 layers first with running locked 0 Vicryl suture followed by a second imbricating layer with 0 Vicryl suture. 0 Vicryl suture was then used in a horizontal mattress interrupted fashion to affect final hemostasis of the uterine incision line. Normal fallopian tubes and ovaries were visualized and the uterus was returned to the pelvis. Hemostasis was noted and rectus abdominis muscles were reapproximated in the midline with interrupted Number 0 Vicryl suture in a horizontal mattress fashion. Fascia was closed with running Number 1 PDS Strata fix suture. Subcutaneous tissue was irrigated with copious amounts of saline solution and then closed with running 3-0 Vicryl suture. Skin was closed with 4-0 monocryl suture in a running subcuticular fashion. A Mepilex dressing were placed across the incision. The patient tolerated the procedure well and was taken to the recovery room in satisfactory condition. Sponge, needle, and instrument counts were all reportedly correct. EBL was 500 cc. Ancef 2 gms IV was given as the procedure commenced. Spicemen to Pathology: Placenta Complications: None Surgical findings: Non-viable female infant with Apgars of 0/0 in an occiput anterior presentation with clear amniotic fluid and three-vessel placenta. Approximately 500 cc of blood clot was noted to exit the uterus when the baby was delivered. Placenta was examined but the area of abruption was not evident. Cervix was dilated 4 cm. The fundus of the uterus was [place]. Presentation: Vertex Amniotic Membrane Rupture Type: Artificial Amniotic Fluid Description: Clear Placental Delivery Description: Spontaneous Placenta Disposition: Sent to Pathology Specimen collected: Yes Description of specimen(s) removed: Placenta sent to pathology Cord Vessel Description: 3 Vessels Cord Entanglement: None Cord Gases: ABG and VBG Infant A gender: Female (1 minute): 0 (5 minute): 0 Cardiac Rn production welder: Yes Shake Out Worker: Huma Kinney Tasks completed by psych assistant: Closing and Retracting Complications Complications: No
[2025-02-28] VITALS (17 sets, daily range): BP systolic 115–135; BP diastolic 68–86; PULSE 87–112; RESP 12–18; TEMP 36.4–37.6; O2SAT 99–100
[2025-02-28] MEDS: Oxytocin 15 Units/NS 250ml 15 UNITS/250 ML IV.SOLN 83 UNITS IV (00:09)
[2025-02-28] MEDS: Lactated Ringers 1,000 ML 100 ML IV (00:09)
[2025-02-28] MEDS: Cefazolin 1 GM/50 ML BAG IV ×2 (00:58→09:57)
--- NOTE | 2025-02-28 01:02 | PCM.NY.DEL ---
Delivery Attendance Service Date: 02/27/25 Service Time: 22:34 Asked to attend delivery by: OB (Todd Raymond) Reason for attendance: - (Abruption with absent heart tones) Assessment: - (Term fetus delivered by stat for absent heart tones noted on dopple and ultrasound with active bleeding. Infant with no heart rate at and no response to resuscitation efforts.) Plan: - Course of Delivery Was resuscitation required: Yes Interventions at Delivery: Compression, Intubation, IV Fluids, Medications and PPV Physical Exam General: - (limp, cyanotic, lifeless) Head: Normocephalic and Anterior fontanel soft and flat Eyes: - Nose: Nares patent Oropharynx: Lips without lesions Lungs: - (No respiratory effort) Cardiovascular: - (No heart tones appreciated on exam) Abdomen: Non distended Cord Vessel Description: 3 Vessels Genitalia, Female: External genitalia normal Neurological: - (No tone, no spontaneous movement, no response to resuscitation) Skin: - (cyanotic, pale) Abdomen 3 Vessels Delivery Course Infant delivered by stat after mother presented to care for 1 hour of heavy vaginal bleeding. No heart tones were appreciated on doppler. GUS called. Per OB physician, heart visualized and no heart beat noted prior to delivery. delivered lifeless with no tone or respiratory effort. Large blood clot noted with . Infant brought to stablette, mouth and nose suctioned and PPV started immediately. No heart rate note on initial auscultation. ECG and pulse ox leads placed at 40 seconds of life with no heart rate. Chest rise achieved with MRSOPA steps. Oxygen increased to 100% in anticipation of intubation due to lack of heart rate. Heart rate felt to be auscultated by nursing below 60 but did not correlate with monitor which consistently read asystole (HR 0) throughout resuscitation. On further reflection, auscultated rate correlated with PPV. OG placed with decompression of abdomen. Call Center Support Consultant attempted intubation twice without success. LMA placed successfully by respiratory therapy with good chest rise but without response in heart rate at 9 minutes. Chest compression started at 10 min 30 seconds and Call Center Support Consultant placed UVC placed at 6cm deep with blood return at 11 min 30 sec. Five rounds of 0.02mg/kg/dose for estimated 4kg every 4 minutes followed by 3ml flush with continuous CPR and rescue breaths at rate of 3:1. Heart rate checked every 60 seconds, continued to be 0 on monitor and auscultation. 0.9NS 40ml bolus started at 18 minutes of life and ran slowly between epi doses for remainder of resuscitation. FOB brought to bedside after 3rd dose of epinephrine (around 21 minutes of life) and current care explained. Reviewed LMA, UVC, chest compressions and epinephrine all ongoing without heart rate response to treatment. FOB asked to continue resuscitation until he contacted family. FOB returned to bedside at 32 minutes of resuscitation and without change in status requested resuscitation efforts be discontinued and that he be allowed to hold . Resuscitation efforts discontinued and swaddled for FOB.
--- NOTE | 2025-02-28 02:28 | PLAC_PTH ---
PATIENT: JASWINDER WARE LOC: [facility] U#:[id number] AGE/SX: 29/F ROOM: WP021 RE02/27/[address]: Dr. Todd Raymond MD : 1995 BED: 1 DIS: 03/01/2025 SPEC #: [id number] RECD: 02/28/25 05:03 STATUS: YORDY EBENEZER #: [id number] LUIS ALBERTO: 02/28/25 02:[address]: Todd Raymond DEPT: SURGICAL PATHOLOGY RECD BY: Berry Tamez ENTERED: 03/01/25 09:33 SP TYPE: PLACENTA OTHR DR: Dr. Faby Griggs DO Tissues: A - Placenta, NOS Procedures: Surgery Specimen Level V HEADER OPERATION: Primary section PRE-OP DIAGNOSIS: Placental abruption and demise TISSUE SUBMITTED: A- Placenta MICROSCOPIC DIAGNOSIS A. Placenta, gestation 39 weeks / 6 days, section: * Mild acute subchorionitis. * 3-vessel umbilical cord negative for acute inflammation. * Mature chorionic villi with focal necrosis (<15%). * 424.6 gram disc, 10th percentile by dates. MICROSCOPIC DESCRIPTION Slides are reviewed. GROSS DESCRIPTION A. Received in formalin labeled with the patient's name and date of is a 424.6 g, 17.9 x 16.9 x 1.9 cm slightly irregular, ovoid placental disc. The membranes are munson and translucent with minimal, loosely adherent blood clot, inserting marginally. The trivessel umbilical cord measures 38.1 in length by 1.2 in diameter and inserts eccentrically, 4.4 cm from the disc edge. The surface is pale blue and glistening with focal subchorionic fibrin (<15%). The maternal surface is red-brown and wrinkled with loosely adherent blood clot predominantly along the periphery; grossly, the maternal surface appears complete. Sectioning reveals pink-red, spongy parenchyma with focal hemorrhage and fibrin (<15%). Cad Drafter sections are submitted as follows: A1: Membrane rollA2: Umbilical cordA3-A4: Placenta SC 03/01/2025 CPT:45823
--- NOTE | 2025-02-28 05:14 | NURSING ---
[facility] notified patient and are not interested in organ donation. Hold on body removed per [employer] #[phone]
[2025-02-28] MEDS: Ketorolac 30 MG/ML Syringe IV ×3 (05:35→17:34)
[2025-02-28] MEDS: 0.9% Saline Lock 10 ML Syringe IV ×5 (05:35→23:39)
[2025-02-28 06:10] LABS: Pathology Specimen OB SEE PATHOLOGY REPORT
[2025-02-28 08:08] LABS: Hematocrit 22.0 % (37-47); Hemoglobin 7.6 g/dL (12.0-15.0); Mean Corp Hgb Conc 34.5 g/dL (32-36); Mean Corpuscular Volume 94.0 fL (81-99); Mean Platelet Vol. 11.9 fl (6.2-12.0); Platelet Count 129 K/mm3 (150-450); RBC Distribution Width CV 13.6 % (11.6-14.6); RBC Distribution Width SD 45.9 fl (35.1-43.9); Red Blood Count 2.34 M/mm3 (4.2-5.4); White Blood Count 18.4 K/mm3 (4.4-11.0)
--- NOTE | 2025-02-28 09:47 | PCM.PN.OB ---
Subjective Subjective Patient without complaints. Tolerating diet well. Denies flatus. Pain controlled with IV pain medications. Agreeable to staying until tomorrow. Denies any orthostatic changes. Objective Data Objective Data Wound is clean, dry, intact. Vital Signs: Vital Signs afebrile, vital signs stable Temp Pulse Resp BP Pulse Ox O2 Del Method 99.7 F H 102 H 16 125/78 H 100 Room Air 02/28/25 07:25 02/28/25 07:25 02/28/25 07:02/28/25 07:02/28/25 07:02/28/25 07:25 Oxygen Delivery Method Room Air Weight: 166 lb Body Mass Index (BMI) 27.6 Intake & Output: Intake and Output for Last 24 Hours 02/26/25 02/27/25 02/28/25 23:59 23:59 23:59 Intake Total 300 / 300 Output Total 600 / 600 Balance -300 / -300 Lab / Micro Data Attestation: I reviewed the patient's lab results. 02/28/25 07:40 Labs: Laboratory Results - last 24 hr 02/27/25 22:15: WBC 15.2 H, RBC 3.34 L, Hgb 10.9 L, Hct 31.9 L, MCV 95.5, MCH 32.6 H, MCHC 34.2, RDW Std Deviation 47.2 H, RDW Coeff of Rosalio 13.6, Plt Count 171, MPV 11.6, Immature Gran % (Auto) 0.700, Neut % (Auto) 71.2 H, Lymph % (Auto) 20.3, [place] % (Auto) 5.7, Eos % (Auto) 1.8, Baso % (Auto) 0.3, Absolute Neuts (auto) 10.8 H, Absolute Lymphs (auto) 3.09, Nucleated RBC % 0, Syphilis Total Ab Nonreactive, Blood Type O NEGATIVE, Antibody Screen NEGATIVE 02/28/25 07:40: WBC 18.4 H, RBC 2.34 L, Hgb 7.6 L, Hct 22.0 L, MCV 94.0, MCH 32.5 H, MCHC 34.5, RDW Std Deviation 45.9 H, RDW Coeff of Rosalio 13.6, Plt Count 129 L, MPV 11.9 Radiography Diagnostic Testing: Radiology Impression KUB X-Ray 02/27/25 23:25 IMPRESSION: No radiopaque foreign body. Reading Location: [id number] Physical Exam Narrative Wound is clean, dry, intact. Landeros remains in place. SCDs in place. Assessment & Plan (1) delivery delivered: PLAN: Doing well postoperative day #1 status post emergency section for catastrophic placental abruption and demise. Supportive care continues. Anticipate discharge tomorrow.
[2025-02-28] MEDS: Senna/Docusate Sodium 1 Tablet PO (10:31)
--- NOTE | 2025-02-28 11:21 | NURSING ---
Jani from the blood band called and informed nurse that baby's blood type was Rh neg. Mom is O neg. no Rhogam needed. Dr Raymond notified of results and ok with canceling the Rhogam order.
--- NOTE | 2025-02-28 12:00 | CASEMGMT ---
Social Work Date of referral: 02/28/25 Reason for referral: Other/ demise Referred by: Todd Raymond Patient provided consent for social work visit. Mother of baby (MOB) was laying in the hospital bed, father of baby (FOB) was lying on the couch nearby and there was another adult lying on a recliner, sleeping. Baby was on a cooling mat, in a crib at MOB's bedside. MOB was tearful. MOB stated there is family that is at home with their other children and to the best of her knowledge, they do not know about what has happened. MOB stated she hasn't decided if her other children should come to the hospital or not and stated she doesn't know what to do. petroleum refinery worker provided emotional support and encouraged the MOB to take all the time she needs in order to decide what she thinks is the best way to notify her other children. MOB and FOB were waiting for a resource manager forester visit so social sciences instructor encouraged the MOB to also discuss this with the resource manager forester to gain input and/or guidance if so desired. petroleum refinery worker left a list of counseling agencies for the MOB and also for the other children as well if needed. MOB denied having any other concerns/needs at this time. Mari Saunders, WATCH TECHNICIAN, BOOT TURNER
[2025-03-01] VITALS (12 sets, daily range): BP systolic 110–133; BP diastolic 59–74; PULSE 86–102; RESP 16; TEMP 36.6–37.6; O2SAT 98–100
[2025-03-01] MEDS: 0.9% Saline Lock 10 ML Syringe IV ×4 (05:54→13:12)
[2025-03-01 06:14] LABS: Hematocrit 19.0 % (37-47); Hemoglobin 6.3 g/dL (12.0-15.0); Immature Granulocytes Count 0.070 X10^3/uL (0.0-0.0); Mean Corp Hgb Conc 33.2 g/dL (32-36); Mean Corpuscular Volume 97.4 fL (81-99); Mean Platelet Vol. 11.3 fl (6.2-12.0); NRBC Flagged by Analyzer 0 % (0-5); Platelet Count 116 K/mm3 (150-450); RBC Distribution Width CV 14.1 % (11.6-14.6); RBC Distribution Width SD 49.3 fl (35.1-43.9); Red Blood Count 1.95 M/mm3 (4.2-5.4); White Blood Count 11.2 K/mm3 (4.4-11.0)
[2025-03-01] MEDS: Iron Sucrose Complex 200 MG in 0.9% Normal Saline (100mL Bag) 100 ML 220 MG IV (07:36)
--- NOTE | 2025-03-01 08:46 | PCM.PN.OB ---
Subjective Subjective Patient coping appropriately, Tolerating PO. Ambulating without difficulty. Denies chest pain, shortness of breath, calf pain/swelling, fevers, chills, lightheadedness. Objective Data Objective Data Vital Signs: Vital Signs Temp Pulse Resp BP Pulse Ox O2 Del Method 98.7 F 99 16 121/74 H 98 Room Air 03/01/25 08:30 03/01/25 08:30 03/01/25 08:30 03/01/25 08:30 03/01/25 08:30 03/01/25 08:30 Oxygen Delivery Method Room Air Weight: 166 lb Body Mass Index (BMI) 27.6 Intake & Output: Intake and Output for Last 24 Hours 02/27/25 02/28/25 03/01/25 23:59 23:59 23:59 Intake Total 1331.67 / 1331.67 Output Total 1800 / 1800 Balance -468.33 / -468.33 Lab / Micro Data 03/01/25 05:55 Labs: Laboratory Results - last 24 hr 02/27/25 22:15: Blood Type O NEGATIVE, Antibody Screen NEGATIVE, Crossmatch See Detail 03/01/25 05:55: WBC 11.2 H, RBC 1.95 L, Hgb 6.3 L, Hct 19.0 L, MCV 97.4, MCH 32.3 H, MCHC 33.2, RDW Std Deviation 49.3 H, RDW Coeff of Rosalio 14.1, Plt Count 116 L, MPV 11.3, Immature Gran % (Auto) 0.600, Neut % (Auto) 74.9 H, Lymph % (Auto) 17.9 L, [place] % (Auto) 5.4, Eos % (Auto) 0.8, Baso % (Auto) 0.4, Absolute Neuts (auto) 8.4 H, Absolute Lymphs (auto) 2.00, Nucleated RBC % 0 ROS Constitutional Constitutional: Reports systems reviewed and no addt'l complaints, except as documented Cardiovascular Cardiovascular: Reports systems reviewed and no addt'l complaints, except as documented Respiratory/Chest Respiratory/Chest: Reports systems reviewed and no addt'l complaints, except as documented Gastrointestinal Gastrointestinal: Reports systems reviewed and no addt'l complaints, except as documented Physical Exam Const alert, oriented x3 and no apparent distress HEENT Head and Scalp: atraumatic Resp normal respiratory effort GI soft to palpation and non-tender Assessment & Plan (1) demise affecting delivery: (2) delivery delivered: COMMENT: siomara dixon 39 abruption girl Charline (3) Placental abruption in third trimester: (4) Supervision of high-risk : QUALIFIERS: Trimester: third trimester Qualified Code(s): O09.93 - Supervision of high risk , unspecified, third trimester COMMENT: PRR , LAURA 02/28/25, girl (name secret) Sally Dhillon, Yousif (5) : QUALIFIERS: Weeks of gestation: 39 weeks Qualified Code(s): Z3A.39 - 39 weeks gestation of COMMENT: GBS neg, declined genetic & carrier testing (6) Rh negative state in antepartum period: COMMENT: O-, Rhogam @ 28 wks & PRN Bleeding, Given 12/08/24 (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 Anatomy scan normal. Declined genetic testing.
[2025-03-01] MEDS: 0.9% Normal Saline (500mL Bag) 500 ML 250 ML IV (11:30)
[2025-03-01] MEDS: Senna/Docusate Sodium 1 Tablet PO (11:48)
--- NOTE | 2025-03-01 13:04 | DCINST_ITS ---
Discharge Instructions
--- NOTE | 2025-03-01 13:04 | PCM.DC ---
Discharge Instructions DC O2, CPAP, BIPAP needs Home O2 Discharge instructions: No Dressing / Incision Discharge Activity: May Not Drive (for 2 weeks or while taking narcotic pain medications.), May Shower and May Take a Tub Bath (in 7 days) May shower in (days): 0 May resume sexual activity in: 4-6 weeks Weight Bearing Status: Full weight bearing Lifting Restrictions: 20 pounds Dressing / Incision Call your doctor if your incision/area has: Continuous Slow Oozing, Sudden Increased Bleeding, Increased Pain/ Swelling, Increased Redness and Foul Smelling Discharge Call your doctor if you observe: Fever of 101 or Higher and Using more than 1 pad per hour (for 2 hours) Suture Line Care: Avoid Pulling/Pushing and Avoid Pinching/Bending Cleanse incision/area with: Soap & Water and Keep Dressing Clean & Dry Follow Up Care Please Follow Up With: Debbi Patel MD When: Call [phone] to make an appointment for an incision check in 1-2 weeks. Test Results: Test results from this visit will be discussed in further detail at your follow-up appointment, if applicable. Discharge Plan Admission Admit Date/Time: 02/27/25 22:15 Attending Provider: Todd Raymond Primary Care Provider: Faby Griggs Discharge Orders/Prescriptions Prescriptions: No Action PNV-[place] 28-1-300 mg capsule 1 cap PO DAILY Cholecalciferol (Vitamin D3) [Vitamin D3] 5,000 UNIT capsule 5,000 mg PO DAILY Referrals / Follow Up: Faby Griggs DO [Primary Care Provider, Family Practice]
--- NOTE | 2025-03-01 13:38 | CHAPLAIN ---
Type of Pastoral Visit ___ Initial Visit ___ Follow-up Visit ___ On-call Visit ___ General Patient Visit ___ Spiritual Assessment ___ Family Conference ___ Bereavement ___ Rapid Response ___ Code Blue _x__ Other (describe below) Pastoral Care Referral From ___ Patient _x__ Family ___ Nurse ___ Physician _x__ Ocean Lifeguard Specialist ___ Poultry Picker ___ Other (describe below) Sacrament/Intervention ___ Active listening ___ Anointing ___ Yazidism ___ Bereavement ___ Communion ___ Tracy exploration ___ ___ Life review ___ Prayer ___ Reconciliation ___ Sacrament of Sick ___ Supportive presence ___ Wedding ___ Other (describe below) Pastoral Comments this was a referral from SW and patient/family; pt had a demise and had requested spiritual care support; however at this time the patient declines a visit per the report of her nurse; pt had stated that 'their mobile crane operator will be coming to see them' and that is sufficient
[2025-03-01 13:39] LABS: Hematocrit 21.8 % (37-47); Hemoglobin 7.6 g/dL (12.0-15.0); Immature Granulocytes Count 0.110 X10^3/uL (0.0-0.0); Mean Corp Hgb Conc 34.9 g/dL (32-36); Mean Corpuscular Volume 95.6 fL (81-99); Mean Platelet Vol. 11.0 fl (6.2-12.0); NRBC Flagged by Analyzer 0 % (0-5); Platelet Count 129 K/mm3 (150-450); RBC Distribution Width CV 14.1 % (11.6-14.6); RBC Distribution Width SD 47.9 fl (35.1-43.9); Red Blood Count 2.28 M/mm3 (4.2-5.4); White Blood Count 12.6 K/mm3 (4.4-11.0)
[2025-03-01 14:10] LABS: AST(SGOT) 25 U/L (<=31); Alanine Aminotransfer ALT/SGPT 14 U/L (<=34); Albumin, Serum 2.8 g/dL (3.5-5.0); Alkaline Phosphatase 133 U/L (35-104); Anion Gap 9 (5-15); BUN 7 mg/dL (4-19); BUN/Creat Ratio 12.6 RATIO (10-20); Calcium,Total 8.1 mg/dL (7.6-11.0); Carbon Dioxide 21.6 mmol/L (21.0-32.0); Chloride 110 mmol/L (98-108); Estimated Creatinine Clearance 142.70 ml/min (50-250); Globulin 1.9 g/dL (2.2-4.2); Glucose 103 mg/dL (70-99); Potassium 3.8 mmol/L (3.3-5.1)
--- NOTE | 2025-03-01 15:02 | PCM.DC.SUM ---
Providers Date of Admission: 02/27/25 Primary Care Physician: Dr. Faby Griggs DO Reason For Visit: C SECTION Diagnosis Discharge Diagnosis (1) demise affecting delivery: Status: Acute Code(s): O36.4XX0 - Maternal care for intrauterine , not applicable or unspecified (2) delivery delivered: Status: Acute Code(s): O82 - Encounter for delivery without indication (3) Placental abruption in third trimester: Status: Acute Code(s): O45.93 - Premature separation of placenta, unspecified, third trimester (4) Supervision of high-risk : Status: Acute Code(s): O09.90 - Supervision of high risk , unspecified, unspecified trimester Qualifiers: Trimester: third trimester Qualified Code(s): O09.93 - Supervision of high risk , unspecified, third trimester (5) : Status: Acute Code(s): Z34.90 - Encounter for supervision of normal , unspecified, unspecified trimester Qualifiers: Weeks of gestation: 39 weeks Qualified Code(s): Z3A.39 - 39 weeks gestation of (6) Rh negative state in antepartum period: Status: Acute Code(s): O26.899 - Other specified related conditions, unspecified trimester; Z67.91 - Unspecified blood type, Rh negative (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 Medications at Discharge Home Medications Cholecalciferol (Vitamin D3) [Vitamin D3] 5,000 mg PO DAILY vitamin 06/16/20 multivit-min no.71-iron fum 28 mg-folate no.1 1 mg-dha 300 mg capsule (PNV-Purmela) 1 cap PO DAILY 07/17/24 naproxen 500 mg tablet 500 mg PO BID PRN PRN Pain #30 tabs 03/01/25 oxycodone-acetaminophen 5 mg-325 mg tablet (Percocet) 1 tab PO Q4H PRN pain 7 days #20 tabs 03/01/25 Hospital Course Operations section Summary of Care Provided Hospital Course: Patient presented at 39 weeks with her third due to acute vaginal bleeding, patient was found to have demise at the time of presentation. Suspicion for massive abruption was made and therefore the decision was made by the physician to proceed with immediate due to risk to maternal health. Patient and her agreed to primary . Patient underwent a primary and postoperatively developed anemia which required transfusion with 1 unit of blood products. Patient had no discernible cause of the abruption other than she had taken a natural product called gentle at home to try and induce labor. She was normotensive upon presentation and throughout her admission, and did not have a history of diabetes or a history of trauma. Preeclampsia labs and an APL panel was drawn. Patient was stable for discharge to home on day #2. Weight / BMI Weight Weight: 166 lb Body Mass Index (BMI) 27.6 ABG / Lab / Microbiology Data 03/01/25 13:20 03/01/25 13:20 Laboratory: Laboratory Results - last 24 hr 02/27/25 22:15: Crossmatch See Detail 03/01/25 13:20: WBC 12.6 H, RBC 2.28 L, Hgb 7.6 L, Hct 21.8 L, MCV 95.6, MCH 33.3 H, MCHC 34.9 D, RDW Std Deviation 47.9 H, RDW Coeff of Rosalio 14.1, Plt Count 129 L, MPV 11.0, Immature Gran % (Auto) 0.900, Neut % (Auto) 76.5 H, Lymph % (Auto) 16.8 L, [place] % (Auto) 5.0, Eos % (Auto) 0.6, Baso % (Auto) 0.2, Absolute Neuts (auto) 9.6 H, Absolute Lymphs (auto) 2.12, Nucleated RBC % 0, Sodium 141, Potassium 3.8, Chloride 110 H, Carbon Dioxide 21.6, Anion Gap 9, BUN 7, Creatinine 0.58 L, Estim Creat Clear Calc 142.70, Est GFR (MDRD) Non-Af 124, BUN/Creatinine Ratio 12.6, Glucose 103 H, Calcium 8.1, Total Bilirubin 0.29, AST 25, ALT 14, Alkaline Phosphatase 133 H, Total Protein 4.8 L, Albumin 2.8 L, Globulin 1.9 L, Albumin/Globulin Ratio 1.5 D/C Instructions May shower in (days): 0 May resume sexual activity in: 4-6 weeks Weight Bearing Status: Full weight bearing Call your doctor if your incision/area has: Continuous Slow Oozing, Sudden Increased Bleeding, Increased Pain/ Swelling, Increased Redness and Foul Smelling Discharge Call your doctor if you observe: Fever of 101 or Higher and Using more than 1 pad per hour (for 2 hours) Suture Line Care: Avoid Pulling/Pushing and Avoid Pinching/Bending Cleanse incision/area with: Soap & Water and Keep Dressing Clean & Dry DC O2, CPAP, BIPAP Needs Home O2 Discharge instructions: No Please Follow Up With: Debbi Patel MD When: Call [phone] to make an appointment for an incision check in 1-2 weeks. Meaningful Use Info Meaningful Use Meaningful Use Diagnoses (Choose all that apply): None applicable Discharge Plan Admission Admit Date/Time: 02/27/25 22:15 Attending Provider: Todd Raymond Primary Care Provider: Faby Griggs Instructions Patient Instructions: After a Delivery (WP) Discharge Orders/Prescriptions Prescriptions: New oxycodone-acetaminophen [Percocet] 5-325 mg tablet 1 tab PO Q4H PRN (Reason: pain) 7 Days Qty: 20 0RF naproxen 500 mg tablet 500 mg PO BID PRN PRN (Reason: Pain) Qty: 30 1RF No Action PNV-Purmela 28-1-300 mg capsule 1 cap PO DAILY Cholecalciferol (Vitamin D3) [Vitamin D3] 5,000 UNIT capsule 5,000 mg PO DAILY Referrals / Follow Up: Faby Griggs DO [Primary Care Provider, Family Practice] Disposition Disposition (needs filled in before D/C Order can be placed): Home, Self Care
[2025-03-05 06:08] LABS: Anti-Cardiolipin Ab, IgG, Qn < 9 GPL U/mL (0-14); Anti-Cardiolipin Ab, IgM, Qn < 9 MPL U/mL (0-12); Beta-2-Glycoprotein I IgA <9 (0-25); Beta-2-Glycoprotein I IgG <9 (0-20); Beta-2-Glycoprotein I IgM <9 (0-32); Dilute Russell Viper Venom 28.4 sec (0.0-47.0); Interpretation Comment: (.); PTT-LA 36.2 sec (0.0-43.5)
== END 2025-03-01 16:00 | disposition home or self-care (01) | DRG 786 ==
LOC: WP 22:19
PROVIDERS: Obstetrics & Gynecology; Admitting Provider Obstetrics & Gynecology; PCP Family Medicine; Referring Provider Obstetrics & Gynecology; Visit Provider Obstetrics & Gynecology
DX: O45.93 Premature separation of placenta, unspecified, third trimester (principal); O41.1230 Chorioamnionitis, third trimester, not applicable or unspecified; D62 Acute posthemorrhagic anemia; O36.4XX0 Maternal care for intrauterine death, not applicable or unspecified; O90.81 Anemia of the puerperium; O77.9 Labor and delivery complicated by fetal stress, unspecified; Z37.1 Single stillbirth; O26.893 Other specified pregnancy related conditions, third trimester; Z67.41 Type O blood, Rh negative; Z3A.39 39 weeks gestation of pregnancy
CPT/HCPCS: 59050; 74018; 80053; 85025; 85027; 85460; 86146; 86147; 86780; 86850; 86900; 86901; 86920; 86922; 88307; 99221; J1756; P9016; A4216; G0378; J2405

== ENCOUNTER → 2025-02-28 03:58 | Outpatient (REF) | payer SELFPAY ==
[2025-02-28 09:09] LABS: HIV Nonreactive (Nonreactive); Hepatitis B Surface Antigen Nonreactive (Nonreactive); Hepatitis C Antibody Nonreactive (Nonreactive)
== END | disposition home or self-care (01) ==
LOC: ED 03:58
PROVIDERS: PCP Family Medicine; Visit Provider Emergency Medicine
DX: Z77.21 Contact with and (suspected) exposure to potentially hazardous body fluids (principal)
CPT/HCPCS: 86703; 86704; 86706; 86803; 87340

== ENCOUNTER → 2025-04-07 | Outpatient (CLI) | payer OTHER, SELFPAY ==
[2025-04-07 12:35] LABS: Hematocrit 40.4 % (37-47); Hemoglobin 13.6 g/dL (12.0-15.0); Immature Granulocytes Count 0.030 X10^3/uL (0.0-0.0); Mean Corp Hgb Conc 33.7 g/dL (32-36); Mean Corpuscular Volume 93.1 fL (81-99); Mean Platelet Vol. 11.4 fl (6.2-12.0); NRBC Flagged by Analyzer 0 % (0-5); Platelet Count 248 K/mm3 (150-450); RBC Distribution Width CV 12.9 % (11.6-14.6); RBC Distribution Width SD 43.9 fl (35.1-43.9); Red Blood Count 4.34 M/mm3 (4.2-5.4); White Blood Count 9.7 K/mm3 (4.4-11.0)
[2025-04-07 12:40] LABS: D-Dimer Quantitative (DVT/PE) 0.49 FEU/ug/m (0.27-0.49)
== END | disposition home or self-care (01) ==
PROVIDERS: PCP Family Medicine; Referring Provider Family Medicine; Visit Provider Family Medicine
DX: I10 Essential (primary) hypertension (principal); R00.0 Tachycardia, unspecified
CPT/HCPCS: 36415; 84439; 84443; 85025; 85379